=== PATIENT | male | born 1940 | race Caucasian/White ===

== ENCOUNTER → 2017-10-01 08:46 | Outpatient (CLI) | payer MEDICARE, OTHER, SELFPAY ==
--- NOTE | 2017-10-01 08:51 | US_ITS ---
US abdomen limited HISTORY:] Quadrant pain and bloating nausea. ORDERING PHYSICIAN: Rola Hauser PATIENT AGE: 77 years Comparison: None TECHNIQUE Sagittal, transverse and decubitus imaging of the regular quadrant including gallbladder was performed. FINDINGS GALLBLADDER - with borderline gallbladder wall thickening. Scant gallbladder debris is. No stones are evident. There is no gallbladder wall thickening. Common duct is normal in diameter. Common duct normal diameter at 3.5 mm Liver: Unremarkable No biliary ductal dilatation. No mass. Portal vein satisfactory Pancreas: .. Not well seen but region unremarkable .. Right kidney: Unremarkable appearing. No hydronephrosis. 9.4 seem in length. Cortex well fairly well-maintained IMPRESSION: 1. Gallbladder. No gallstones. Scant debris and sludge 2.. Liver & right kidney unremarkable. Pancreas not well seen
== END ==
PROVIDERS: PCP Internal Medicine; Visit Provider Nurse Practitioner Family
DX: R10.84 Generalized abdominal pain (principal); R14.0 Abdominal distension (gaseous); R11.0 Nausea
CPT/HCPCS: 76705

== ENCOUNTER → 2017-10-11 09:26 | Outpatient (CLI) | payer MEDICARE, OTHER, SELFPAY ==
[2017-10-11 10:09] LABS: Basophils % 0.5 % (0.1-2.0); Eosinophils # 0.2 K/mm3 (0.0-0.4); Eosinophils % 3.8 % (0.1-12.0); Hematocrit 37.6 % (42.0-52.0); Hemoglobin 11.9 g/dL (14.1-18.0); Lymphocytes # 1.3 K/mm3 (0.7-4.5); Lymphocytes % 22.9 K/mm3 (10-50); Mean Corpuscular HGB Conc 31.7 g/dL (31.8-35.4); Mean Corpuscular Volume 97.5 fl (80-94); Mean Platelet Volume 6.8 fl (7.4-10.4); Monocytes # 0.4 K/mm3 (0.1-1.0); Monocytes % 6.9 % (1.7-9.3); Neutrophils # 3.9 K/mm3 (1.8-7.8); Platelet Count 243 K/mm3 (142-424); Red Blood Count 3.86 M/mm3 (4.60-6.20); Red Cell Distribution Width 14.3 % (11.5-17.5); White Blood Count 5.9 K/mm3 (4.8-10.8)
[2017-10-11 10:32] LABS: Alanine Aminotransferase 16 U/L (12-78); Albumin Level 3.2 gm/dL (3.4-5.0); Albumin/Globulin Ratio 0.9 (1.1-1.8); Alkaline Phosphatase 125 U/L (46-116); Anion Gap 12.9 mEq/L (5-15); Aspartate Amino Transferase 13 U/L (15-37); Bilirubin,Total 0.5 mg/dL (0.2-1.0); Blood Urea Nitrogen 26 mg/dL (7-18); Calcium 9.2 mg/dL (8.5-10.1); Carbon Dioxide 31 mmol/L (21.0-32.0); Chloride 100 mmol/L (98-107); Creatinine,Serum 1.53 mg/dL (0.70-1.30); Estimated Glomerular Filt Rate 44 ml/min (>60); GFR (African American) 53 ML/MIN (>60); Globulin 3.6 gm/dl (1.3-3.2); Glucose 97 mg/dL (74-106); Sodium 137 mmol/L (136-145); Total Protein,Serum 6.8 gm/dL (6.4-8.2)
[2017-10-11 10:39] LABS: Potassium 6.9 mmoL/L (3.5-5.1)
[2017-10-15 19:15] LABS: Antinuclear Antibodies, IFA Negative (.)
== END ==
PROVIDERS: Visit Provider Allergy & Immunology
DX: E87.5 Hyperkalemia (principal)
CPT/HCPCS: 36415; 80053; 85025; 86038

== ENCOUNTER → 2017-10-12 11:02 | Outpatient (CLI) | payer MEDICARE, OTHER, SELFPAY ==
[2017-10-12 13:33] LABS: Anion Gap 7.7 mEq/L (5-15); Blood Urea Nitrogen 22 mg/dL (7-18); Carbon Dioxide 34 mmol/L (21.0-32.0); Chloride 104 mmol/L (98-107); Creatinine,Serum 1.44 mg/dL (0.70-1.30); Estimated Glomerular Filt Rate 47 ml/min (>60); GFR (African American) 57 ML/MIN (>60); Glucose 94 mg/dL (74-106); Potassium 5.7 mmoL/L (3.5-5.1); Sodium 140 mmol/L (136-145)
== END ==
PROVIDERS: PCP Nurse Practitioner Family; Visit Provider Nurse Practitioner Family
DX: E87.5 Hyperkalemia (principal)
CPT/HCPCS: 36415; 80048

== ENCOUNTER → 2017-11-10 13:56 | Outpatient (CLI) | payer MEDICARE, OTHER, SELFPAY | PROVIDERS: PCP Nurse Practitioner Family; Visit Provider Internal Medicine | DX: R06.00 Dyspnea, unspecified (principal) ==

== ENCOUNTER → 2018-02-11 08:47 | Outpatient (CLI) | payer MEDICARE, OTHER, SELFPAY ==
--- NOTE | 2018-02-11 08:59 | CT_ITS ---
CT angio abdomen CLINICAL INDICATION: Follow-up abdominal aortic aneurysm ITS.REASON: AAA ORDERING PHYSICIAN: Tj Day MD PATIENT AGE: 77 years COMPARISON: None TECHNIQUE: Axial images obtained with sagittal and coronal reformats. All CT scans at the facility use one or more dose reduction, viz: automated exposure control, ma/kV adjustment per patient size (including targeted exams where dose is matched to indication, i.e. head), or iterative reconstruction technique. PROCEDURE: Oral Contrast: None IV Contrast: 100 mL of Isovue-370. FINDINGS: There is mild dilatation of the distal descending thoracic aorta and 3.4 cm not significant change. There has been an aortoiliac stent graft placed. The superior aspect of the graft is just superior to the origin of the renal arteries. There is been no significant change in the appearance of the aneurysm with the aortoiliac stent present. The [place] aneurysm sac measures approximately 8 cm transverse not significant changed. The endoluminal portion of the aneurysm measures 3.8 cm with a mild amount of mural thrombus and is not significant changed. No evidence of endograft leak. There is some calcification of the mural thrombus which is developed in the interval. No evidence of acute retroperitoneal hemorrhage. The iliac portion of the graft is widely patent. Nonvascular findings: No intestinal obstruction or free air. There is diffuse diverticulosis of the descending and sigmoid colon. No evidence of diverticulitis. There is mild cortical calcaneal the kidneys on both sides with mild stranding of the perinephric renal fat. There are atheromatous changes of the celiac and SMA but no occlusive changes apparent. IMPRESSION: 1. Overall stable appearance of the aortoiliac stent graft as described above with dilatation of the [place] aneurysm sac unchanged. No evidence of endograft leak. 2. Diverticulosis of the sigmoid colon
--- NOTE | 2018-02-11 08:59 | CA_ITS ---
PROCEDURE: 2-D M-mode and color Doppler study INDICATIONS FOR THE TEST: Chest pain COPD+ Heart Murmur Tobacco Smoking+ Palpitations Fatigue Syncope Edema Hypertension+Diabetes Mellitus Rheumatic Fever SOB HARRY+Obesity Hyperlipidemia+ Family History HD Additional History CAD, AAA, PAD PATIENT INFORMATION HEIGHT: 72 WEIGHT: 165 GENDER: Male B/P: 126/69 2-D/M-MODE INTERPRETATION: 2-D MEASUREMENTS OBSERVED VALUES IN CMS Right Ventricular Dimension (RVDd) 2.0 Interventricular Septum (Thickness)(IVsd) 0.9 Left Ventricular Internal Dimensions(LVIDd) 4.7 Left Ventricular Posterior Wall (Thickness)(LVPWd) 0.9 Aortic Root 2.6 Aortic Cusp Separation 2.0 Left Atrial Dimensions (LAD) 3.0 2D 1. Left atrium is mildly enlarged, left ventricle is normal size, there is mild concentric left ventricular hypertrophy, visually estimated ejection fraction of 55% with no regional wall motion abnormality. 2. The right atrium and right ventricle are qualitatively mildly enlarged with normal contractility. 3. The aortic valve is minimally thickened and fibrosed. 4. The mitral and tricuspid valvular grossly normal. 5. Pulmonic valve is poorly visualized 6. No significant pericardial effusion noted. DOPPLER INTERROGATION: Doppler interrogation of the aortic, mitral and tricuspid valvular presence of mild mitral and tricuspid regurgitation, calculated right ventricular systolic pressure of 45 mmHg consistent with moderate pulmonary hypertension, grade 1 diastolic dysfunction seen without tissue Doppler evidence of raised left atrial pressure. CONCLUSION: 1. Mild biatrial enlargement, normal left ventricular size, mild concentric left ventricular hypertrophy, visually estimated ejection fraction 55% with no regional wall motion abnormality, diastolic dysfunction seen without tissue Doppler evidence of raised left atrial pressure. 2. Mildly enlarged right ventricle with normal contractility. 3. Mild mitral and tricuspid regurgitation, calculated right ventricular systolic pressure is 45 mmHg consistent with moderate pulmonary hypertension. 4. No significant pericardial effusion noted.
[2018-02-11 09:10] LABS: Blood Urea Nitrogen 23 mg/dL (7-18); Creatinine,Serum 1.61 mg/dL (0.70-1.30); Estimated Glomerular Filt Rate 42 ml/min (>60); GFR (African American) 50 ML/MIN (>60)
--- NOTE | 2018-02-11 10:00 | HMH.ITSHM ---
Current Home Medications as stated by this patient Timothy Rivera or patient relations representative. []METOPROLOL,ATORVASTATIN,AMLODIPINE,FUROSEMIDE,ASPRIIN,PROAIR, ALBUTEROL
== END ==
PROVIDERS: Visit Provider Internal Medicine
DX: I27.20 Pulmonary hypertension, unspecified (principal); R06.09 Other forms of dyspnea; I71.4 Abdominal aortic aneurysm, without rupture
CPT/HCPCS: 36415; 74175; 82565; 84520; 93306; Q9967

== ENCOUNTER → 2018-11-18 15:11 | Outpatient (CLI) | payer MEDICARE, OTHER, SELFPAY ==
[2018-11-18 17:17] LABS: Blood Urea Nitrogen 26 mg/dL (7-18); Creatinine,Serum 1.91 mg/dL (0.70-1.30); Estimated Glomerular Filt Rate 34 ml/min (>60); GFR (African American) 41 ML/MIN (>60)
== END ==
PROVIDERS: Visit Provider Internal Medicine
DX: R06.00 Dyspnea, unspecified (principal)
CPT/HCPCS: 36415; 82565; 84520

== ENCOUNTER → 2018-11-19 10:33 | Outpatient (CLI) | payer MEDICARE, OTHER, SELFPAY | PROVIDERS: PCP Nurse Practitioner Family; Visit Provider Urology | DX: I71.4 Abdominal aortic aneurysm, without rupture (principal) ==

== ENCOUNTER → 2018-11-25 15:28 | Outpatient (CLI) | payer MEDICARE, OTHER, SELFPAY ==
[2018-11-25 17:03] LABS: Blood Urea Nitrogen 18 mg/dL (7-18); Creatinine,Serum 1.49 mg/dL (0.70-1.30); Estimated Glomerular Filt Rate 45 ml/min (>60); GFR (African American) 55 ML/MIN (>60)
== END ==
PROVIDERS: Visit Provider Internal Medicine
DX: R06.00 Dyspnea, unspecified (principal)
CPT/HCPCS: 36415; 82565; 84520

== ENCOUNTER → 2018-11-26 10:27 | Outpatient (CLI) | payer MEDICARE, OTHER, SELFPAY ==
--- NOTE | 2018-11-26 10:32 | CT_ITS ---
Procedure: CT ANGIO ABDOMEN CLINICAL HISTORY: AAA Follow-up abdominal aortic aneurysm COMPARISON: AGABD CT angio abdomen from 02/11/2018 TECHNIQUE: IV Contrast: 100ml Optiray 350 Axial images obtained with sagittal and coronal reformats. All CT scans at the facility use one or more dose reduction, viz: automated exposure control, ma/kV adjustment per patient size (including targeted exams where dose is matched to indication, i.e. head), or iterative reconstruction technique. FINDINGS: There has been prior placement of an aortoiliac stent graft. No evidence of endograft leak. There remains dilatation the [place] aneurysm sac measuring up to 7 cm in AP dimension and 7.7 cm transverse not significantly changed. No evidence of thrombosis of the aorta or iliac vessels. No retroperitoneal hemorrhage apparent. The liver, spleen, adrenal glands, pancreas, and kidneys have an unremarkable appearance. There is diverticulosis of the sigmoid colon. IMPRESSION: Overall no change status post aortoiliac stent graft placement for abdominal aortic aneurysm.. No change in the dilatation of the thrombosed aneurysm sac with no evidence of endograft leak Dictated by: Dat Gaviria MD 11/27/2018 06:41 Electronically signed by Dat Gaviria MD in [place] 11/28/2018 07:15
== END ==
PROVIDERS: PCP Nurse Practitioner Family; Visit Provider Urology
DX: E78.5 Hyperlipidemia, unspecified (principal); F17.200 Nicotine dependence, unspecified, uncomplicated; I11.9 Hypertensive heart disease without heart failure; I25.10 Atherosclerotic heart disease of native coronary artery without angina pectoris; I71.4 Abdominal aortic aneurysm, without rupture; I73.9 Peripheral vascular disease, unspecified; Z01.810 Encounter for preprocedural cardiovascular examination
CPT/HCPCS: 74175; Q9967

== ENCOUNTER 2019-02-24 11:35 | Inpatient (IN) ==
[2019-02-24 12:19] LABS: Basophils % 0.2 % (0.1-2.0); Eosinophils # 0.1 K/mm3 (0.0-0.4); Eosinophils % 0.9 % (0.1-12.0); Hematocrit 36.4 % (42.0-52.0); Hemoglobin 11.9 g/dL (14.1-18.0); Lymphocytes # 0.7 K/mm3 (0.7-4.5); Lymphocytes % 4.3 % (10-50); Mean Corpuscular HGB Conc 32.8 g/dL (31.8-35.4); Mean Corpuscular Volume 95.4 fl (80-94); Mean Platelet Volume 8.7 fl (7.4-10.4); Monocytes # 0.8 K/mm3 (0.1-1.0); Monocytes % 5.3 % (1.7-9.3); Neutrophils # 13.5 K/mm3 (1.8-7.8); Neutrophils % 89.3 % (37.0-80.0); Platelet Count 248 K/mm3 (142-424); Red Blood Count 3.81 M/mm3 (4.60-6.20); Red Cell Distribution Width 14.3 % (11.5-17.5); White Blood Count 15.1 K/mm3 (4.8-10.8)
[2019-02-24 12:25] LABS: Amylase 62 U/L (25-115)
[2019-02-24 12:38] LABS: Lymphocytes % 5 % (10-50); Monocytes % 3 % (2-9); Neutrophils % 92 % (42-76); Total Cells Counted 100
[2019-02-24 12:39] LABS: RBC Morphology Normal
[2019-02-24 12:51] LABS: Alanine Aminotransferase 12 U/L (12-78); Albumin Level 2.7 gm/dL (3.4-5.0); Albumin/Globulin Ratio 0.6 (1.1-1.8); Alkaline Phosphatase 90 U/L (46-116); Anion Gap 12.9 mEq/L (5-15); Aspartate Amino Transferase 8 U/L (15-37); Bilirubin,Total 1.1 mg/dL (0.2-1.0); Blood Urea Nitrogen 25 mg/dL (7-18); Calcium 8.8 mg/dL (8.5-10.1); Carbon Dioxide 30 mmol/L (21.0-32.0); Chloride 99 mmol/L (98-107); Globulin 4.6 gm/dl (1.3-3.2); Glucose 128 mg/dL (74-106); Sodium 137 mmol/L (136-145); Total Protein,Serum 7.3 gm/dL (6.4-8.2)
--- NOTE | 2019-02-24 15:18 | Emergency Department Note ---
ED Disposition Clinical Impression: Acute exacerbation of chronic obstructive airways disease, SIRS (systemic inflammatory response syndrome) Community acquired pneumonia Qualifiers: Laterality: right Lung location: upper lobe of lung Qualified Code(s): J18.9 - Pneumonia, unspecified organism Disposition: Admitted As Inpatient Condition on Discharge: Fair Referrals: Provider,Referral, [Primary Care Provider] - - Critical Care Critical Care Time: No Attestation: On 02/24/19, the high probability of a clinically significant, sudden or life threatening deterioration of the following system(s) required my full and direct attention, intervention and personal management. The time I documented below is in addition to time spent performing reported procedures but includes the following listed in this critical care notation. Medical Decision Making - Brian Inquiry Pt receiving controlled substance: No Vital Signs: 02/24/19 11:36 02/24/19 12:06 02/24/19 12:24 Temperature 100.1 F H 101.5 F H Temperature Source Oral Oral Pulse Rate Pulse Rate [Right Radial] 93 H 89 88 Respiratory Rate 24 24 16 Blood Pressure [Right Arm] 134/78 126/68 130/73 Blood Pressure Mean [Right Arm] 96 87 92 Blood Pressure Source [Right Arm] Automatic Cuff Automatic Cuff Automatic Cuff Blood Pressure Position [Right Arm] Sitting Sitting Sitting 02 Sat by Pulse Oximetry 95 97 97 Oxygen Delivery Method Nasal Cannula Nasal Cannula Room Air Oxygen Flow Rate (LPM) 3 3 02/24/19 15:37 Temperature Temperature Source Pulse Rate 95 H Pulse Rate [Right Radial] Respiratory Rate Blood Pressure [Right Arm] Blood Pressure Mean [Right Arm] Blood Pressure Source [Right Arm] Blood Pressure Position [Right Arm] 02 Sat by Pulse Oximetry Oxygen Delivery Method Oxygen Flow Rate (LPM) - Lab Data Lab results reviewed: Yes: I reviewed the patient's lab results. Lab Results 02/24/19 11:50: WBC 15.1 H, RBC 3.81 L, Hgb 11.9 L, Hct 36.4 L, MCV 95.4 H, MCH 31.3 H, MCHC 32.8, RDW 14.3, Plt Count 248, MPV 8.7, Neut % (Auto) 89.3 H, Lymph % (Auto) 4.3 L, [place] % (Auto) 5.3, Eos % (Auto) 0.9, Baso % (Auto) 0.2, Neut # (Auto) 13.5 H, Lymph # (Auto) 0.7, [place] # (Auto) 0.8, Eos # (Auto) 0.1, Baso # (Auto) 0.0, Total Counted 100, Neutrophils % (Manual) 92 H, Lymphocytes % (Manual) 5 L, Monocytes % (Manual) 3, Platelet Estimate Normal, RBC Morphology Normal 02/24/19 11:50: Amylase 62, Lipase 79 02/24/19 12:27: Sodium 137, Potassium 4.9, Chloride 99, Carbon Dioxide 30, Anion Gap 12.9, BUN 25 H, Creatinine 2.00 H, Estimated Creat Clear 28, Estimated GFR 32 L, Est GFR ( Amer) 39 L, Glucose 128 H, Calcium 8.8, Total Bilirubin 1.1 H, AST 8 L, ALT 12, Alkaline Phosphatase 90, Troponin I < 0.02, Total Protein 7.3, Albumin 2.7 L, Globulin 4.6 H, Albumin/Globulin Ratio 0.6 L 02/24/19 12:27: Lactate 1.0 02/24/19 15:18: Troponin I < 0.02 Result diagrams: 02/24/19 11:50 02/24/19 12:27 Orders (Tests/Meds): ED MEDICATIONS Discontinued Medications Generic Name Dose Route Start Last Admin Trade Name Hermannq PRN Reason Stop Dose Admin Acetaminophen 1,000 mg 02/24/19 15:36 02/24/19 15:56 Tylenol 500mg Tablet PO 02/24/19 15:37 1,000 mg ONCE ONE Administration Albuterol/Ipratropium 3 ml 02/24/19 15:35 02/24/19 15:36 Duoneb 3ml Neb IH 02/24/19 15:36 3 ml ONCE ONE Administration Sodium Chloride 1,000 mls @ 999 mls/hr 02/24/19 15:15 02/24/19 15:57 Sod Chlor 0.9% 1000ml Bag IV 02/24/19 16:15 999 mls/hr .Q1H1M MELISSA Administration Ceftriaxone Sodium 1 gm/ 50 mls @ 100 mls/hr 02/24/19 15:03 02/24/19 15:56 Sodium Chloride IV 02/24/19 15:32 100 mls/hr ONCE STA Administration Protocol Azithromycin 500 mg/ Sodium 250 mls @ 250 mls/hr 02/24/19 15:19 02/24/19 16:13 Chloride IV 02/24/19 15:20 250 mls/hr Q24H STA Administration Protocol Methylprednisolone Sodium Succinate 125 mg 02/24/19 15:35 02/24/19 15:56 Solu-Medrol 125mg/2ml Vial IV 02/24/19 15:36 125 mg ONCE ONE Administration ORDERS Category Date Time Status CT angio chest Stat Cat Scan 02/24/19 17:09 Ordered Troponin I Q3H Lab 02/24/19 18:00 Ordered Blood Culture Stat Micro 02/24/19 11:50 Received - Radiology Data #1 Image(s): Chest FINDINGS: The cardiomediastinal silhouette and pulmonary vascularity are within normal limits. Consolidation is present involving the right upper lobe laterally abutting the fissure consistent pneumonia. There is mild hyperinflation suggesting small airway disease. In addition, there is a nodular opacity overlying left lower lobe which measures 10 mm. No acute bony abnormalities. IMPRESSION: 1. Right upper lobe pneumonia. 2. Left lower lobe nodule which may be better evaluated with CT. Dictated by: Dat Gaviria MD 02/24/2019 13:01 Electronically signed by Dat Gaviria MD in [place] 02/24/2019 13:01 - ECG Data Tracing #1 EKG done at 1131 hrs. shows normal sinus rhythm with a heart rate of 85 bpm, nonspecific ST-T changes. Right bundle branch block pattern. - Physician Consults Physician Consulted: Dr. Murillo Time: 17:15 Reason -: Admission Comment/Response: Discussed with Dr. Murillo regarding the patient and planned to get the patient admitted to the floor. - Reevaluation(s) Time: 15:30 Reevaluation #1: Patient has been stable throughout the course of stay in the ER. Discussed the lab findings and the x-ray finding with the patient. Plan to do a CT scan of the chest to further evaluate the cause of the right-sided consolidation. Time: 16:50 Reevaluation #3: Patient has been stable throughout the course of stay in the ER. Plan to admit the patient to the floor. - Tissue Perfus/Sepsis Re-Eval Sepsis Re-Evaluation Performed: Yes Date Performed: 02/24/19 Time Performed: 15:00 Resp/SOB HPI - General Chief Complaint: Shortness of Breath/Dyspnea Stated Complaint: SOA Time Seen by Provider: 02/24/19 12:00 Mode of Arrival: Wheelchair Limitations: No Limitations Description of Symptoms (Recalled from ER Triage Doc. by RN): PT C/O SOA AND PAIN IN THE RT CHEST WITH INSPIRATION X4 DAYS - History of Present Illness 78-year-old male was brought to the emergency department for having shortness of breath and not getting better for the last 4 days. According to the family members the patient was getting weaker and weaker. He was getting dizzy because of the shortness of breath. The family did not check the patient temperature but stated that he was feeling warm. He was complaining of having pain on the right side of the chest. The pain was radiating from the undersurface of the right chest wall to the right side of the chest. The pain is sharp in nature. No nausea or vomiting. No change in mental status. MD Complaint: shortness of breath Onset (ago): day(s) (4-5 days) Severity: moderate - Related Data Home Medications Medication Instructions Recorded Confirmed albuterol sulfate 1.25 mg/3 mL 1.25 mg INHALATION Q6H 05/15/17 12/14/18 solution for nebulization albuterol sulfate HFA 90 90 mcg INHALATION Q6H 05/15/17 12/14/18 mcg/actuation aerosol inhaler aspirin 81 mg tablet,delayed 81 mg PO DAILY tab 05/15/17 12/14/18 release omeprazole 20 mg capsule,delayed 20 mg PO DAILY 11/11/18 12/14/18 release Previous Rx's Medication Instructions Recorded atorvastatin 40 mg tablet 40 mg PO DAILY #30 tab 06/08/18 furosemide 20 mg tablet 20 mg PO DAILY #30 tab 12/01/18 amlodipine 10 mg tablet 10 mg PO DAILY #90 tab 01/18/19 metoprolol tartrate 100 mg tablet 100 mg PO BID #60 tab 02/15/19 Allergies Allergy/AdvReac Type Severity Reaction Status Date / Time lisinopril Allergy Intermediate angioedema Verified 12/14/18 10:33 [facility] History - Hepatitis A Screen Drug use history?: No High risk sexual behaviors?: No History of sexually transmitted infection?: No Currently employed?: No Childcare worker?: No Do you have indoor plumbing?: Yes Do you have electricity?: Yes Attestation statement:: This patient has been screened for Hepatitis A risk factors. Medical History: Reports:: Aneurysm, Chronic Obstructive Pulmonary Disease (COPD), Coronary Artery Disease, Hyperlipidemia, Hypertension, Lung Disease Denies:: Diabetes Mellitus Type 1, Diabetes Mellitus Type 2, Internal Pacemaker, Seizures Other Medical History: Denies: Blood Transfusion Reaction Other Surgeries: Yes: Cardiac Catheterization, Colonoscopy, Colon Resection, EGD, Other. No: Pacemaker Comment: small bowel obstruction - Social History Smoking Status: Current every day smoker Tobacco Type: cigarettes # Packs/Day (cigarettes): 1 Alcohol Intake: never Alcohol Intake Frequency:: 0-2 drinks per day Substance Use Type: denies use Occupational Status: retired, disabled Family Hx:: Coronary Artery Disease ROS Obtained: Yes All systems reviewed & no additional complaints Physical Exam - General General appearance: alert, in no apparent distress - Head Head exam: atraumatic, normocephalic, normal inspection - Eye Eye exam: Present: normal appearance, PERRL, EOMI - ENT ENT exam: Present: normal exam, normal oropharynx, mucous membranes moist, normal external ear exam - Neck Neck exam: Present: normal inspection, full ROM, trachea midline - Chest Chest inspection: Present: normal inspection, symmetric chest wall rise, tenderness, other (Patient complains of tenderness on palpation of the right 6-7 intercostal and the rib margin area at the anterolateral margin.) - Respiratory Respiratory exam: Present: other (Mild coarse breath sounds more on the right than the left.). Absent: respiratory distress - Cardiovascular Cardiovascular exam: Present: regular rate, normal rhythm. Absent: JVD - Abdominal Exam Abdominal exam: Present: soft, tenderness (Patient complains of tenderness on palpation of the right upper quadrant of the abdomen.), normal bowel sounds, Rodrigues's sign (Her feet sign is questionable positive.). Absent: distention, g uarding Abdominal tenderness: Present: RUQ - Extremities Exam Extremities exam: Present: normal inspection, full ROM, normal capillary refill. Absent: calf tenderness - Back Exam Back exam: Present: normal inspection, tenderness (Mild tenderness on the posterior aspect of the right chest wall area.) - Neurological Exam Neurological exam: Present: alert, oriented X3, CN II-XII intact - Psychiatric Psychiatric exam: Present: normal affect, normal mood - Skin Skin exam: Present: warm, dry, intact, normal color
[2019-02-25 06:11] LABS: Eosinophils # 0.1 K/mm3 (0.0-0.4); Eosinophils % 0.6 % (0.1-12.0); Hematocrit 36.6 % (42.0-52.0); Hemoglobin 11.9 g/dL (14.1-18.0); Lymphocytes # 0.7 K/mm3 (0.7-4.5); Lymphocytes % 4.3 % (10-50); Mean Corpuscular HGB Conc 32.4 g/dL (31.8-35.4); Mean Corpuscular Volume 95.4 fl (80-94); Mean Platelet Volume 8.4 fl (7.4-10.4); Monocytes # 0.3 K/mm3 (0.1-1.0); Monocytes % 1.7 % (1.7-9.3); Neutrophils # 15.6 K/mm3 (1.8-7.8); Neutrophils % 93.4 % (37.0-80.0); Platelet Count 226 K/mm3 (142-424); Red Blood Count 3.83 M/mm3 (4.60-6.20); Red Cell Distribution Width 14.2 % (11.5-17.5); White Blood Count 16.7 K/mm3 (4.8-10.8)
[2019-02-25 06:20] LABS: Anion Gap 11.8 mEq/L (5-15); Calcium 8.8 mg/dL (8.5-10.1)
[2019-02-25 06:59] LABS: Lymphocytes % 5 % (10-50); Monocytes % 2 % (2-9); Neutrophils % 91 % (42-76); RBC Morphology Normal; Total Cells Counted 100
--- NOTE | 2019-02-25 07:32 | History & Physical Report ---
*Admission Date: 02/24/19 *Chief complaint: Cough and shortness of breath *History of present illness: 78-year-old male with likely COPD presents to the emergency department with approximately 3 days of cough with increasing shortness of breath. Patient does not know if he has had fevers at home. Cough is primarily nonproductive but has associated weakness and nausea. Patient has been smoking since the age of 10 and currently smokes a pack of cigarettes per day. Work-up in the emergency department showed a right upper lobe pneumonia as well as a nodule in the left upper lobe concerning for neoplasm. Patient was admitted for IV antibiotics. Patient reports that shortly after admission he felt like he was already improving but overnight and around 3 AM he awoke and felt rather weak and restless. He has a sensation of chest congestion and pain in the posterior right mid back [facility] History I have reviewed the patient's past medical history: Yes Medical History: Reports:: Aneurysm, Chronic Obstructive Pulmonary Disease (COPD), Coronary Artery Disease, Hyperlipidemia, Hypertension, Lung Disease Denies:: Diabetes Mellitus Type 1, Diabetes Mellitus Type 2, Internal Pacemaker, Seizures *Have you ever received a pneumonia vaccine?: No (interested in vaccine) *Have you received a flu vaccine this season?: Yes Other Medical History: Denies: Blood Transfusion Reaction Other Surgeries: Yes: Cardiac Catheterization, Colonoscopy, Colon Resection, EGD, Hernia Repair, Other. No: Pacemaker - *Social History Educational Level: Completed GED/General Educational Development Smoking Status: Current every day smoker Tobacco Type: cigarettes # Packs/Day (cigarettes): 2 Alcohol Intake: current Alcohol Intake Frequency:: a few times a week Substance Use Type: denies use *Occupational Status:: retired, disabled Household Members: spouse *Travel in the last 8 weeks: None Family Hx:: No significant family history, Coronary Artery Disease Review of Systems - Constitutional Reports anorexia, Reports chills - *Cardiovascular Denies chest pain - *Respiratory Reports chest congestion, Reports cough, Reports shortness of breath with activity - *Gastrointestinal Denies abdominal pain - *Musculoskeletal Denies abnormal walking, Denies joint pain Meds Home Medications Medication Instructions Recorded Confirmed Type albuterol sulfate 1.25 mg/3 mL 1.25 mg INHALATION Q8 05/15/17 02/24/19 History solution for nebulization albuterol sulfate HFA 90 90 mcg INHALATION Q6H PRN 05/15/17 02/24/19 History mcg/actuation aerosol inhaler aspirin 81 mg tablet,delayed 81 mg PO DAILY tab 05/15/17 02/24/19 History release atorvastatin 40 mg tablet 40 mg PO DAILY #30 tab 06/08/18 02/24/19 Rx omeprazole 20 mg capsule,delayed 20 mg PO DAILY 11/11/18 02/24/19 History release furosemide 20 mg tablet 20 mg PO DAILY #30 tab 12/01/18 02/24/19 Rx amlodipine 10 mg tablet 10 mg PO DAILY #90 tab 01/18/19 02/24/19 Rx metoprolol tartrate 100 mg tablet 100 mg PO BID #60 tab 02/15/19 02/24/19 Rx Cyclobenzaprine HCl 10 mg PO NEEDED PRN 02/24/19 02/24/19 History [Cyclobenzaprine 10mg Tab] Allergies Allergy/AdvReac Type Severity Reaction Status Date / Time lisinopril Allergy Intermediate angioedema Verified 12/14/18 10:33 Exam Vital signs and Labs for Last 24 Hours: Temp Pulse Resp BP Pulse Ox 97.8 F 78 19 126/80 91 L 02/25/19 04:00 02/25/19 04:00 02/25/19 04:00 02/25/19 04:00 02/25/19 04:00 Laboratory Results - last 24 hr 02/24/19 11:50: WBC 15.1 H, RBC 3.81 L, Hgb 11.9 L, Hct 36.4 L, MCV 95.4 H, MCH 31.3 H, MCHC 32.8, RDW 14.3, Plt Count 248, MPV 8.7, Neut % (Auto) 89.3 H, Lymph % (Auto) 4.3 L, [place] % (Auto) 5.3, Eos % (Auto) 0.9, Baso % (Auto) 0.2, Neut # (Auto) 13.5 H, Lymph # (Auto) 0.7, [place] # (Auto) 0.8, Eos # (Auto) 0.1, Baso # (Auto) 0.0, Total Counted 100, Neutrophils % (Manual) 92 H, Lymphocytes % (Manual) 5 L, Monocytes % (Manual) 3, Platelet Estimate Normal, RBC Morphology Normal 02/24/19 11:50: Amylase 62, Lipase 79 02/24/19 12:27: Sodium 137, Potassium 4.9, Chloride 99, Carbon Dioxide 30, Anion Gap 12.9, BUN 25 H, Creatinine 2.00 H, Estimated Creat Clear 28, Estimated GFR 32 L, Est GFR ( Amer) 39 L, Glucose 128 H, Calcium 8.8, Total Bilirubin 1.1 H, AST 8 L, ALT 12, Alkaline Phosphatase 90, Troponin I < 0.02, Total Protein 7.3, Albumin 2.7 L, Globulin 4.6 H, Albumin/Globulin Ratio 0.6 L 02/24/19 12:27: Lactate 1.0 02/24/19 15:18: Troponin I < 0.02 02/24/19 18:00: Troponin I < 0.02 02/24/19 20:36: Troponin I < 0.02 02/25/19 00:57: POC Glucose 227 H 02/25/19 05:50: POC Glucose 165 H 02/25/19 05:57: WBC 16.7 H, RBC 3.83 L, Hgb 11.9 L, Hct 36.6 L, MCV 95.4 H, MCH 31.0, MCHC 32.4, RDW 14.2, Plt Count 226, MPV 8.4, Neut % (Auto) 93.4 H, Lymph % (Auto) 4.3 L, [place] % (Auto) 1.7, Eos % (Auto) 0.6, Baso % (Auto) 0.0 L, Neut # (Auto) 15.6 H, Lymph # (Auto) 0.7, [place] # (Auto) 0.3, Eos # (Auto) 0.1, Baso # (Auto) 0.0, Total Counted 100, Neutrophils % (Manual) 91 H, Band Neutrophils % 2.0, Lymphocytes % (Manual) 5 L, Monocytes % (Manual) 2, Platelet Estimate Normal, RBC Morphology Normal 02/25/19 05:57: Sodium 139, Potassium 4.8, Chloride 102, Carbon Dioxide 30, Anion Gap 11.8, BUN 28 H, Creatinine 1.71 H, Estimated Creat Clear 34, Estimated GFR 39 L, Est GFR ( Amer) 47 L D, Glucose 158 H D, Calcium 8.8 I & O for Last 24 hours: Intake & Output 12/09/02/23/19 02/24/19 02/25/19 11:59 11:59 11:59 11:59 Weight 148 lb 152 lb 2 oz - Constitutional no acute distress - *Routine HEENT Exam Head: Present: normocephalic Eye: Present: PERRL ENT: Present: mucous membranes moist - *Routine Neck Exam Present: supple, full ROM. Absent: JVD - *Routine Respiratory Exam Comments: Fair aeration with rales in the right posterior mid chest - *Routine Cardiovascular Exam Present: RRR, Normal S1, Normal S2 - *Routine Abdominal Exam Present: soft - *Routine Extremities Exam Absent: cyanosis, clubbing, edema - *Routine Neurological Exam Present: alert, oriented X3 Assessment and Plan (1) Community acquired pneumonia Current visit: Yes Status: Acute Qualifiers: Laterality: right Lung location: upper lobe of lung Qualified Code(s): J18.9 - Pneumonia, unspecified organism Category: Medical Code(s): J18.9 - Pneumonia, unspecified organism (2) Acute exacerbation of chronic obstructive airways disease Current visit: Yes Status: Acute Category: Medical Code(s): J44.1 - Chronic obstructive pulmonary disease with (acute) exacerbation - Assessment and plan all Dx Assessment and Plan for all problems:: 1. Start D5 half-normal saline plus potassium for a total of 2 L as patient is likely a little dehydrated from his poor appetite during the week 2. Continue Rocephin and azithromycin. Add albuterol nebs and Mucinex. Encourage patient to ambulate.
--- NOTE | 2019-02-25 07:42 | Pharmacy Consult Notes ---
[facility] Pharmacy VTE Monitoring - Patient Demographics Admission date: 02/24/19 Report Date: 02/25/19 Time: 07:42 Allergies/Adverse Reactions: Patient Allergies lisinopril Allergy (Intermediate, Verified 12/14/18 10:33) angioedema Height: 1.83 m Weight: 69.003 kg Patient Problems: Current Active Problems Community acquired pneumonia (Acute) Acute exacerbation of chronic obstructive airways disease (Acute) SIRS (systemic inflammatory response syndrome) (Acute) - VTE Risk Labs: VTE Related Lab Results Hgb 11.9 g/dL (14.1-18.0) L 02/25/19 05:57 Hct 36.6 % (42.0-52.0) L 02/25/19 05:57 Plt Count 226 K/mm3 (142-424) 02/25/19 05:57 BUN 28 mg/dL (7-18) H 02/25/19 05:57 Creatinine 1.71 mg/dL (0.70-1.30) H 02/25/19 05:57 Estimated Creat Clear 34 mL/min (50-200) 02/25/19 05:57 VTE Score: 3 VTE Risk Level: Low Risk - Prophylaxis VTE Prophylaxis Ordered?: Yes Types of VTE Prophylaxis: TEDS Knee High Location of Applied Device: Bilateral Lower Extremeties - VTE Diagnosis Confirmed Treatment or plan recommended: Continue Current Treatment
--- NOTE | 2019-02-25 10:26 | Electrocardiograph Report ---
APPROVED REPORT Exam: Resting ECG HR:85 bpm ECG Measurements Heart Rate 85 AXES [place] 118 P 45 QRSd 120 QRS 87 QT 346 T61 QTc 411 <Conclusion> Normal sinus rhythm Right bundle branch block Abnormal ECG Electronically signed by : Karthik Arce, 02/25/2019 10:26:22
--- OUTSIDE RECORDS SUMMARY | 2019-02-25 14:16 | External Medical Summary | Continuity of Care Document ---
:1940 Author Organization [facility] Address [address] [place] [address] Phone Care Team Providers Name Role Phone Esther Attending Provider Murtaza Primary Care Provider Ariel Primary Care Provider Ariel Attending Provider Regis Murillo Attending Provider Allergies, Adverse Reactions, Alerts Allergen Type Severity Reaction Last Verified Status Updated lisinopril Allergy Moderate angioedema Yes Active Medications Medication Status Dose Units Route Sig Qty Days Start End Instruct ions Date Date Omeprazole Active 20 MG Oral Daily November 11, 2018 2:08pm Aspirin Active 81 MG Oral Daily May 15, 2017 1:11pm Albuterol Active 2 PUFFS INHALATIO Every 18 May Sulfate N hours 2017 as 1:12pm needed Atorvastatin Active 40 MG Oral Daily May 11:31am Furosemide Active 20 MG Oral Daily December 01, 2018 3:20pm Amlodipine Active 10 MG Oral Daily January Bes2018 1:53pm Cyclobenzaprine Active 10 MG Oral At February bedtime , nightly 2018 as 11:09pm needed Metoprolol Active 100 MG Oral Twice a February 10:30am Problems Active Problems Medical Problem Onset Date Status Acute exacerbation of chronic Active obstructive airways disease Tobacco dependence syndrome Active Encounter for pre-operative Active cardiovascular clearance Foreign body Active CAD (coronary artery disease) Active AAA (abdominal aortic aneurysm) Active RBBB Active Dyspnea Active HLD (hyperlipidemia) Active Community acquired pneumonia Active SIRS (systemic inflammatory response Act phuong syndrome) Renal insufficiency Active Tobacco use disorder Active PAD (peripheral artery disease) Active COPD (chronic obstructive pulmonary Acti ve disease) HHD (hypertensive heart disease) Active RBBB Active Hyperkalemia Active Procedures Procedure Date Performed Status XR chest portable February 24, 2019 completed US gallbladder February 24, 2019 completed ECG initial Besson February 24, [address] chest wo con February 24, 2019 completed Blood Culture February 24, 2019 active Relevant Diagnostic Tests and/or Laboratory Data Laboratory Results Test Date/Time Result Interpretation Reference Result Perfo rming Range Comment Site White Blood Count February 16.7 4.8-10.8 [facility], [address] [place] [address] 36 E 2018 K/mm3 Ge[place] [address] 5:57am Red Blood Count February 3.83 4.60-6.20 [facility], [address] [place] [address] 36 E 2018 M/mm3 [place] [address] 5:57am Hemoglobin February 11.9 14.1-18.[address] 36 E 2018 g/[place] [address] 5:57am Hematocrit February 36.6 % 42.0-52.[address] 36 E 2018 [place] [address] 5:57am Mean Corpuscular February 95.4 fl 80-[address] 36 E Volume 2018 [place] [address] 5:57am Mean Corpuscular Waldo 31.0 pg 27.0-31.[address] 36 E Hemoglobin 2018 [place] [address] 5:57am Mean Corpuscular Waldo 32.4 31.8-35.[address] 36 E Hemoglobin Concent 2018 g/[place] [address] 5:57am Red Cell Waldo 14.2 % 11.5-17.5 [facility], [address] [place] [address] 36 E Distribution Width 2018 [place] [address] 5:57am Platelet Count February 226 142-424 [facility], [address] [place] [address] 36 E 2018 K/mm3 [place] [address] 5:57am Mean Platelet Waldo 8.4 fl 7.4-10.4 [facility], [address] [place] [address] 36 E Volume 2018 [place] [address] 5:57am Neutrophils (%) Waldo 93.4 % 37.0-80.0 [facility], [address] [place] [address] 36 E (Auto) 2018 [place] [address] 5:57am Lymphocytes (%) Waldo 4.3 % 10-50 [facility], [address] [place] [address] 36 E (Auto) 2018 [place] [address] 5:57am Monocytes (%) Waldo 1.7 % 1.7-9.3 [facility], [address] [place] [address] 36 E (Auto) 2018 [place] [address] 5:57am Eosinophils (%) Waldo 0.6 % 0.1-12.0 [facility], [address] [place] [address] 36 E (Auto) 2018 [place] [address] 5:57am Basophils (%) Waldo 0.0 % 0.1-2.0 [facility], [address] [place] [address] 36 E (Auto) 2018 [place] [address] 5:57am Neutrophils # Waldo 15.6 1.8-7.8 [facility], [address] [place] [address] 36 E (Auto) 2018 K/mm3 [place] [address] 5:57am Lymphocytes # Waldo 0.7 0.7-4.5 [facility], [address] [place] [address] 36 E (Auto) 2018 K/mm3 [place] [address] 5:57am Monocytes # (Auto) Waldo 0.3 0.1-1.0 [facility], [address] [place] [address] 36 E 2018 K/mm3 [place] [address] 5:57am Eosinophils # Waldo 0.1 0.0-0.4 [facility], [address] [place] [address] 36 E (Auto) 2018 K/mm3 [place] [address] 5:57am Basophils # (Auto) Waldo 0.0 0-0.2 [facility], [address] [place] [address] 36 E 2018 K/mm3 Geeta [place] [address] 5:57am Differential Total February 100 [facility], [address] [place] [address] 36 E Cells Counted 2018 [place] [address] 5:57am Neutrophils % Waldo 91 % 42-76 [facility], [address] [place] [address] 36 E (Manual) 2018 [place] [address] 5:57am Band Neutrophils % Waldo 2.0 0-8 [facility], [address] [place] [address] 36 E 2018 Geeta [place] [address] 5:57am Lymphocytes % Waldo 5 % 10-50 [facility], [address] [place] [address] 36 E (Manual) 2018 [place] [address] 5:57am Monocytes % Waldo 2 % 2-9 [facility], [address] [place] [address] 36 E (Manual) 2018 [place] [address] 5:57am Platelet Estimate Waldo Normal [facility], [address] [place] [address] 36 E 2018 Ge[place] [address] 5:57am Red Blood Cell Waldo Normal [facility], [address] [place] [address] 36 E Morphology 2018 Arline [place] [address] 5:57am Troponin I February < 0.02 0.00-0.06 *ALERT* High [facility], [address] [place] [address] 36 E 2018 ng/ml levels of Ge[place] [address] 8:36pm Biotin can falsely depress Troponin results.Many dietary supplements promoted for hair,skin, and nail benefits contain biotin levels up to 650 times the recommended daily intake of biotin. In additon to dietary supplements, Biotin is occasionally prescribed for medical conditions. Sodium Level February 139 136-145 [facility], [address] [place] [address] 36 E 2018 mmol/L Ge[place] [address] 5:57am Potassium Level February 4.8 3.5-5.1 [facility], [address] [place] [address] 36 E 2018 mmoL/L [place] [address] 5:57am Chloride Level February 102 98-107 [facility], [address] [place] [address] 36 E 2018 mmol/L Ge[place] [address] 5:57am Carbon Dioxide February 30 21.0-32.0 [facility], [address] [place] [address] 36 E Level 2018 mmol/L Ge[place] [address] 5:57am Anion Gap February 11.8 5-15 [facility], [address] [place] [address] 36 E 2018 mEq/L Ge[place] [address] 5:57am Blood Urea February 28 7-18 [facility], [address] [place] [address] 36 E Nitrogen 2018 mg/dL [place] [address] 5:57am Creatinine February 1.71 0.70-1.30 [facility], [address] [place] [address] 36 E 2018 mg/dL [place] [address] 5:57am Estimated February 34 0-300 [facility], [address] [place] [address] E Creatinine 2018 mL/min Arline [place] [address] Clearance 5:57am Estimated GFR February 47 >59 Delta: 39 on [facility], [address] [place] [address] 36 E () 2018 ML/MIN 02/24/19-1 227 Geeta [place] [address] 5:57am Estimat Glomerular February 39 >59 [facility], [address] [place] [address] 36 E Filtration Rate 2018 ml/min Kyung [place] [address] 5:57am Glucose Level February 158 74-106 Delta: 128 on [facility], [address] [place] [address] 36 E 2018 mg/dL 02/24/19-1227 Jose [place] 36583 5:57am Bedside Glucose February 165 70-110 Poin t-of-Ca 2018 re (RALS) 5:50am Lactate February 1.0 0.4-2.0 [facility], [address] [place] [address] 36 E 2018 mmol/L Ge[place] [address] 12:27pm Calcium Level February 8.8 8.5-10.1 [facility], [address] [place] [address] 36 E 2018 mg/dL Ge[place] [address] 5:57am Total Bilirubin February 1.1 0.2-1.0 [facility], [address] [place] [address] 36 E 2018 mg/dL Ge[place] [address] 12:27pm Aspartate Amino Waldo 8 U/L [facility], [address] [facility] 36 E Transf (AST/SGOT) 2018 [place] [address] 12:27pm Alanine Waldo 12 U/L 12-78 [facility], [address] [place] [address] 36 E Aminotransferase 2018 Cy tony [place] [address] (ALT/SGPT) 12:27pm Total Protein February 7.3 6.4-8.2 [facility], [address] [place] [address] 36 E 2018 gm/[place] [address] 12:27pm Albumin Waldo 2.7 3.4-5.0 [facility], [address] [place] [address] 36 E 2018 gm/[place] [address] 12:27pm Globulin Waldo 4.6 1.3-3.2 [facility], [address] [place] [address] 36 E 2018 gm/[place] [address] 12:27pm Albumin/Globulin February 0.6 1.1-1.8 [facility], [address] [place] [address] 36 E Ratio 2018 [place] [address] 12:27pm Alkaline Waldo 90 U/L 46-116 [facility], [address] [place] [address] 36 E Phosphatase 2018 [place] [address] 12:27pm Amylase Level February 62 U/L 25-115 [facility], [address] [place] [address] 36 E 2018 [place] [address] 11:50am Lipase February 79 u/L 73-393 [facility], [address] [place] [address] 36 E 2018 [place] [address] 11:50am Diagnostic Imaging Reports Report Dictated Date/Time Dictated By Status Radiology Report February 24, 2019 Dat Gaviria MD completed 12:15pm [address] [place] [address] XRay R eport Sig jm Patient: Timothy Rivera MR#: [id number] : 1940 Acct:[id number] Age/Sex: 78 / M ADM Date: 9 Loc: ER Attending Dr: Ordering Physician: Anabella Brown MD Date of Service: 02/24/19 Procedure(s): XR chest portable Accession Number(s): [id number] cc: Dat Gaviria MD; Provider,Referral ~ PROCEDURE: XR CHEST PORTABLE CLINICAL HISTORY: RT CP WITH INSPIRATI ON, SOA Right-sided chest pain on deep inspirat ion COMPARISON: LDCTLCAS LDCT FOR LUNG CA SCREEN from 12/31/[address] chest wo con from 10/05/2018 Chest from 10/05/2018 FINDINGS: The cardiomediastinal silhouette and pu lmonary vascularity are within normal limits. Consolidation is present involving the right upper lobe laterally abutting the fissure consistent pneumon ia. There is mild hyperinflation suggesting small airway disease. In addition, there is a nodular opacity overlying left low er lobe which measures 10 mm. No acute bony abnormalities. IMPRESSION: 1. Right upper lobe pneumonia. 2. Left lower lobe nodule which may be better evaluated with CT. Dictated by: Dat Gaviria MD 02/24/2019 13:01 Electronically signed by Dat Gaviria in [place] 02/24/2019 13:01 Radiology Report February 24, 2019 Dat Gaviria MD completed 12:46pm [facility] [address] [place] [facility] [address] [place] [address] Ultrasoun d Report Sig jm Patient: Timothy Rivera MR#: [id number] : 1940 Acct:[id number] Age/Sex: 78 / M ADM Date: 9 Loc: ER Attending Dr: Ordering Physician: Anabella Brown MD Date of Service: 02/24/19 Procedure(s): US gallbladder Accession Number(s): [id number] cc: Dat Gaviria MD; Provider,Referral ~ PROCEDURE: US GALLBLADDER CLINICAL INDICATION: RUQ abd pain Right upper quadrant pain COMPARISON: No exams were available fo r comparison FINDINGS: Pancreas: Unremarkable/Not well seen Liver: Unremarkable. There is appropri ate direction of blood flow within a non dilated portal vein. Right kidney: Unremarkable appearing. N o hydronephrosis. Gallbladder: No stones are evident. Th ere is no gallbladder wall thickening. Common duct is normal in di ameter. Layering sludge is present in the gallbladder. No obvious shadowing gallstones. IMPRESSION: Gallbladder sludge otherwise negative Dictated by: Dat Gaviria MD 02/24/2019 15:02 Electronically signed by Dat Gaviria in [place] 02/24/2019 15:02 Radiology Report February 24, 2019 Dat Gaviria MD completed 5:26pm [facility] [address] [place] [facility] [address] [place] [address] [address] Scan Report Sig jm Patient: Timothy Rivera MR#: [id number] : 1940 Acct:[id number] Age/Sex: 78 / M ADM Date: 9 Loc: Attending Dr: Karthik George MD Ordering Physician: Anabella Brown MD Date of Service: 02/24/19 Procedure(s): CT chest wo con Accession Number(s): [id number] cc: Dat Gaviria MD; Anabella Brown MD; Karthik Johnson MD~ PROCEDURE: CT CHEST WO CON CLINICAL INDICATION: rule out mass Right-sided chest pain, abdomen x-ray w ith pulmonary nodule COMPARISON: LDCTLCAS LDCT FOR LUNG CA SCREEN from 12/31/[address] chest wo con from 10/05/2018 CT ANGIO ABDOMEN from 11/26/2018 XR CHEST PORTABLE from 02/24/2019 TECHNIQUE: Axial images obtained with sagittal and coronal reformats. All CT scans at the facility use one or more dose reduction, viz: automated exposure cont rol, ma/kV adjustment per patient size (including targeted exams where dose is matched to indication, i.e. head), or iterative re construction technique. FINDINGS: There are few small mediastinal lymph n odes which are slightly more prominent compared to the previous exam . There is a precarinal lymph node present that measures 1.2 cm previ ously measuring 0.8 cm. Coronary artery calcifications are note d. Normal heart size. COPD with centrilobular emphysema. Sca ttered areas of scarring are present. Apical scarring noted on righ t. There is an irregular density in the left upper lobe measurin g 1.7 cm. This has a suspicious appearance and may be very s lightly more prominent compared to the previous exam. Previous ly there was a 7 mm nodule in the left upper lobe posteriorly. This n ow measures 5 mm. There is consolidation involving the central asp ect of the right upper lobe inferiorly. This is somewhat atypical e xtending a linear fashion anterior to posterior with surrounding areas of interstitial thickening and patchy density. There is some scarring in the lingula inferiorly. There has been prior aortic stent graft placed within abdominal aortic aneurysm. The [place] a neurysm sac measures 5.2 cm transverse not significantly changed. . IMPRESSION: 1. New consolidation in the right upper lobe consistent with pneumonia. This is most dense in the ce ntral aspect of the right upper lobe having a somewhat linear con figuration. Recommend following till clear. 2. Left upper lobe nodule at 1.7 cm whi ch appears slightly more prominent suspicious for neoplasm. 3. Previously noted 7 mm nodule in the central aspect of the left upper lobe has decreased in size at 5 m m. 4. Centrilobular emphysema with other n onacute findings as described above. Dictated by: Dat Gaviria MD 02/24/2019 18:16 Electronically signed by Dat Gaviria in [place] 02/24/2019 18:16 Advance Directives Advance Directive Response Recorded Date/Time Living Will No February 24, 2019 6:11pm Chief Complaint and Reason for Visit Chief Complaint Post Scope Follow-up Pneumonia Reason for Visit Acute exacerbation of chroni c obstructive airways disease Community acquired pneumonia SIRS (systemic inflammatory response syndrome) Encounters Encounter Location(s) Arrival/Admit Date Discharge/Depart Date Provider(s) Departed [facility] Physician December 14, December 14, 2018 Amina Santana Physician/[facility]-Surgical 2018 10:10am 10:34am MD jena Office Suite Visit Admitted [facility] Physician February 24, Karthik gibson , Inpatient Group-Second 2018 5:30pm Floor Registered [facility] Physician February 25, Angel Gibson Inpatient Group- 2018 2:06pm MD Chidi Recent Diagnosis Onset Date Acute exacerbation of chronic obstructive airways dise ase Community acquired pneumonia SIRS (systemic inflammatory response syndrome) Assessments Diagnosis Onset Date Resolution Status Acute exacerbation of acute chronic obstructive airways disease Community acquired acute pneumonia SIRS (systemic acute inflammatory response syndrome) Functional Status Observation Response Date Recorded Oral Care Ability Independent February 24, 2019 6:11pm Bathing Ability Independent February 24, 2019 6:11pm Eating (Feeding) Ability Independent February 24, 2019 6:11pm Toileting Ability Independent February 24, 2019 6:11pm Ambulation Ability Independent February 24, 2019 6:11pm Functional status ambulatory December 14, 2018 11:04am Goals Ambulatory Goals Patient verbalized understanding of dise ase process. Plan of care discussed. Education provided. Immunizations Immunization Event Date Not Given Dose Manager Speech Lot Vac cine Reason Number Number Informatio n Statement (VIS) Deta il Influenza, December unspecified 2016 formulation Mental Status Observation Response Date Recorded Comprehension Ability No Impairment February 25 1:00pm Able to Read Yes February 24, 2019 6:11pm Able to Write Yes February 24, 2019 6:11pm Ability to Follow Directions Good February 242018 6:11pm Eye Contact Maintains Eye Contact February 24 9 6:11pm Oral Expression Ability No Impairment February 24 019 6:11pm Medical Equipment No Medical Equipment Information available Insurance Providers Guarantor [facility] Address [address] [place] [address] Contact Info. Home Phone: Payer Policy Id Coverage Id Subscriber's Subscriber Id Effective E xpiration Name Date Date Medicare [id number] [place] [id number] [facility] [address] [place] of [id number] [place] [id number] [facility] Self Pay Self N/A Plan of Treatment Patient is doing well after upper endoscopy with biopsies and dilatation. I recommend he remain on proton pump inhibitors. I recommend he be cognizant of eating foods such as meats and breads. I will see him on an as-needed basis. As it appears as though he has refused a PET CT scan based on findings on his CT scan of his chest it may be reasonable to proceed with a follow-up interval CT scan in several months. However, this would either need to be done through pulmonary or primary provider. Future Tests Future scheduled test information is unavailable Pending Tests Pending diagnostic test information is unavailable Future Visits Future appointment information is unavailable Referrals to Other Providers Reason for Referral Start Provider Provider Contact Provider Address Referral Date Information Admission to [facility] February 252018 [facility] Future Procedures Future procedure information is unavailable Future Medications Future medication information is unavailable Patient Instructions Pneumonia-Adult Social History Assigned Sex Male Vital Signs Vital Reading Result Reference Range Collection Date/ Time Height 182.88 cm December 14, 2018 10:29am Weight 71.66 kg December 14, 2018 10:29am Heart Rate 69 /min 60-90 December 14, 2018 10:29am BP Systolic 118 mm[Hg] 110-140 December 14, 2018 10:29am BP Diastolic 67 mm[Hg] 60-90 December 14, 2018 10:29am BMI (Body Mass Index) 21.4 kg/m2 December 14, 2018 10:29am Height 182.88 cm February 25, 2 019 5:08am Weight 69.00 kg February 25, 2 019 5:08am Body Temperature 97.8 [degF] 97.6-99.6 February 25, 2019 12:00pm Heart Rate 82 /min 60-90 February 25, 2 019 1:48pm Respiratory rate 20 /min -February 25, 2019 12:00pm Oxygen saturation by 94 % 95-100 February 252018 Pulse oximetry 12:00pm BP Systolic 137 mm[Hg] 110-140 February 25, 2 019 12:00pm BP Diastolic 67 mm[Hg] 60-90 February 25, 2 019 12:00pm BMI (Body Mass Index) 20.6 kg/m2 February 142018 5:08am
--- NOTE | 2019-02-26 07:05 | Progress Note ---
Internal Medicine - PN: Subj *Date: 02/26/19 *Time: 07:04 Interval history: Patient feels slightly improved. He notes dyspnea on exertion. He reports he does use home oxygen at night only. Cough remains nonproductive. Exam Vital signs and Labs for Last 24 Hours: Temp Pulse Resp BP Pulse Ox 97.8 F 83 18 138/73 94 L 02/26/19 04:00 02/26/19 04:06 02/26/19 04:00 02/26/19 04:00 02/26/19 04:00 I & O for Last 24 hours: Intake & Output 02/23/19 02/24/19 02/25/19 02/26/19 11:59 11:59 11:59 11:59 Intake Total 240 / 240 2779 / 2779 Output Total 1100 / 1100 Balance 240 / 240 1679 / 1679 Weight 148 lb 152 lb 2 oz 156 lb 3 oz Narrative: He is in no distress sitting up in bed with nasal cannula in place. Lung exam did have rales at the right midlung heard posteriorly. Heart has a regular rate and rhythm Assessment and Plan (1) Community acquired pneumonia Current visit: Yes Status: Acute Qualifiers: Laterality: right Lung location: upper lobe of lung Qualified Code(s): J18.9 - Pneumonia, unspecified organism Category: Medical Code(s): J18.9 - Pneumonia, unspecified organism (2) Acute exacerbation of chronic obstructive airways disease Current visit: Yes Status: Acute Category: Medical Code(s): J44.1 - Chronic obstructive pulmonary disease with (acute) exacerbation (3) Neoplasm of lung Current visit: Yes Status: Acute Category: Medical Code(s): D49.1 - Neoplasm of unspecified behavior of respiratory system - Assessment and plan all Dx Assessment and Plan for all problems:: 1. Continue IV antibiotics, duo nebs. Increase ambulation today and monitor room air sats
--- NOTE | 2019-02-27 06:42 | Discharge Summary ---
General - General Admission date:: 02/24/19 Discharge date: 02/27/19 HPI HPI: 78-year-old male with likely COPD presents to the emergency department with approximately 3 days of cough with increasing shortness of breath. Patient does not know if he has had fevers at home. Cough is primarily nonproductive but has associated weakness and nausea. Patient has been smoking since the age of 10 and currently smokes a pack of cigarettes per day. Work-up in the emergency department showed a right upper lobe pneumonia as well as a nodule in the left upper lobe concerning for neoplasm. Patient was admitted for IV antibiotics. Patient reports that shortly after admission he felt like he was already improving but overnight and around 3 AM he awoke and felt rather weak and restless. He has a sensation of chest congestion and pain in the posterior right mid back Hospital Course Hospital Course: Patient was admitted and placed on Rocephin and azithromycin for treatment of community-acquired pneumonia. Duo nebs 4 times a day were also ordered. Patient was quite dyspneic on admission and dyspnea improved a little each day. Patient responded well to antibiotics and aerosols. Patient does have underl randall COPD and uses supplemental oxygen at home when he sleeps. On the day prior to discharge patient remained in the low to mid 90s on room air and uses supplemental oxygen at night. His cough was dry for the admission and he was not able to produce quality sputum. Blood cultures were negative. When patient was admitted a CT scan was performed which showed a left lung lesion suspicious for neoplasm. Patient will require further work-up as an outpatient. Objective Vital signs: Temp Pulse Resp BP Pulse Ox 98.4 F 81 18 140/83 93 L 02/27/19 04:00 02/27/19 04:00 02/27/19 04:00 02/27/19 04:00 02/27/19 04:00 no acute distress - *Routine Respiratory Exam Comments: Rales posterior right midlung - *Routine Cardiovascular Exam Present: RRR, Normal S1, Normal S2 Results Labs on day of discharge: Preliminary micro results at discharge 02/24/19 11:50 Blood Culture - Preliminary Blood NO GROWTH AFTER 48 HOURS 02/24/19 11:50 Blood Culture - Preliminary Blood NO GROWTH AFTER 48 HOURS DS: Diagnosis - Discharge Diagnosis (1) Community acquired pneumonia Status: Acute (2) Acute exacerbation of chronic obstructive airways disease Status: Acute (3) Neoplasm of lung Status: Acute Discharge Plan - Patient Discharge Instructions ACTIVITY: Continue current activity DIET: continue same diet Patient Instructions: Pneumonia-Adult, DI for Chronic Obstructive Pulmonary Disease - Follow up Plan Follow up with: Karthik George MD [Primary Care Provider] - 03/01/19 Disposition: Home, Self-Fpc Medications: Home Medications Medication Instructions Recorded Confirmed Type albuterol sulfate HFA 90 2 puffs IH Q4HP PRN 05/15/17 02/25/19 History mcg/actuation aerosol inhaler aspirin 81 mg tablet,delayed 81 mg PO DAILY tab 05/15/17 02/24/19 History release atorvastatin 40 mg tablet 40 mg PO DAILY #30 tab 06/08/18 02/24/19 Rx omeprazole 20 mg capsule,delayed 20 mg PO DAILY 11/11/18 02/24/19 History release furosemide 20 mg tablet 20 mg PO DAILY #30 tab 12/01/18 02/24/19 Rx amlodipine 10 mg tablet 10 mg PO DAILY #90 tab 01/18/19 02/24/19 Rx Cyclobenzaprine HCl 10 mg PO HSP PRN 02/24/19 02/25/19 History [Cyclobenzaprine 10mg Tab] Metoprolol Tartrate [Lopressor 100 100 mg PO BID 02/25/19 02/24/19 History mg Tablets] Azithromycin [Azithromycin 500mg 500 mg PO DAILY #3 tab 02/27/19 Rx Tab] guaiFENesin [Mucinex 600mg tablet] 600 mg PO BID #30 tab.er.12h 02/27/19 Rx Prescriptions/Medication Reconciliation: New guaiFENesin [Mucinex 600mg tablet] 600 mg PO BID #30 tab.er.12h Azithromycin [Azithromycin 500mg Tab] 500 mg PO DAILY #3 tab Continued aspirin 81 mg tablet,delayed release 81 mg PO DAILY tab albuterol sulfate HFA 90 mcg/actuation aerosol inhaler 2 puffs IH Q4HP PRN PRN Reason: Shortness Of Breath atorvastatin 40 mg tablet 40 mg PO DAILY #30 tab omeprazole 20 mg capsule,delayed release 20 mg PO DAILY amlodipine 10 mg tablet 10 mg PO DAILY #90 tab furosemide 20 mg tablet 20 mg PO DAILY #30 tab Cyclobenzaprine HCl [Cyclobenzaprine 10mg Tab] 10 mg PO HSP PRN PRN Reason: MUSCLE RELAXER Metoprolol Tartrate [Lopressor 100 mg Tablets] 100 mg PO BID - Problem Reconciliation Problems Reviewed?: Yes
== END 2019-02-27 09:12 | disposition home or self-care (01) | DRG 190 ==
LOC: ER 11:35 → 2ND 11:35 → OBSVTOIN 17:30 → 2ND 18:03
PROVIDERS: ADMIT Emergency Medicine; ATTEND Family Medicine
CPT/HCPCS: 36415; 71010; 71045; 71250; 76705; 80048; 80053; 82150; 82962; 83605; 83690; 84484; 85007; 85025; 87040; 87070; 87205; 93005; 94640; 94761; 96365; 96367; 96375; 99285; J0456

== ENCOUNTER → 2019-08-25 09:36 | Outpatient (CLI) | payer MEDICARE, OTHER, SELFPAY ==
--- NOTE | 2019-08-25 10:01 | CT_ITS ---
Procedure: CT ANGIO ABDOMEN PELVIS CLINICAL HISTORY: AAA Evaluate abdominal aortic aneurysm COMPARISON: CTAA CTA-ABD from 03/12/2016 CT ANGIO ABDOMEN from 11/26/2018 TECHNIQUE: IV Contrast: 100ml Optiray 350 Axial images obtained with sagittal and coronal reformats. All CT scans at the facility use one or more dose reduction, viz: automated exposure control, ma/kV adjustment per patient size (including targeted exams where dose is matched to indication, i.e. head), or iterative reconstruction technique. FINDINGS: There has been prior aortic stent graft placed. The galena aneurysm sac does not appear significantly changed measuring approximately 7.8 cm in diameter transverse and 6.7 cm AP. The internal lumen/graft diameter is 3.3 cm similar to the previous exam. No evidence of stent graft leak. There is some mural calcification similar to the previous exam. Bilateral common iliac artery stents are present as well and appear patent. No evidence of acute retroperitoneal hemorrhage. The SMA and celiac are patent with calcific plaque at the ostium. The left renal artery originates at the superior aspect of the graft. The ostium is not well delineated due to the graft itself. The right renal artery ostium is also near the superior aspect of the graft with some calcific plaque at the ostium with suspected moderate to high-grade stenosis of at least the ostium of the right renal artery and possibly the left renal artery as well. Nonvascular findings: Mild thickening at the GE junction nonspecific. There is some unusual enhancement of the right hepatic lobe. This however has had a similar appearance on previous exams dating back to 03/12/2016 and could be due to some shunting within the liver of questionable clinical significance. The spleen, adrenal glands, and pancreas are unremarkable. There is some left renal cortical atrophy but no hydronephrosis or renal mass. No intestinal obstruction or free air. There is diverticulosis of the sigmoid colon but no evidence of diverticulitis. There are degenerative changes of the spine and hips IMPRESSION: . The 1. Overall no change in the abdominal aortic aneurysm status post aortoiliac stent graft. 2. Suspect high-grade bilateral renal artery stenosis. The ostium of the renal arteries is somewhat obscured by the stent. The left renal artery ostium may be covered by the stent. There is mild left renal cortical atrophy. 3. Colonic diverticulosis Dictated by: Dat Gaviria MD 08/26/2019 10:02 Electronically signed by Dat Gaviria MD in [facility] 08/26/2019 10:02
[2019-08-25 10:06] LABS: Blood Urea Nitrogen 31 mg/dl (9-20); Estimated Glomerular Filt Rate 39 ml/min (>60); GFR (African American) 47 ML/MIN (>60)
== END ==
PROVIDERS: PCP Family Medicine; Visit Provider Urology
DX: I71.4 Abdominal aortic aneurysm, without rupture (principal)
CPT/HCPCS: 36415; 74174; 82565; 84520; Q9967

== ENCOUNTER → 2019-12-31 14:50 | Outpatient (CLI) | payer MEDICARE, OTHER, SELFPAY ==
--- NOTE | 2019-12-31 15:03 | XR_ITS ---
PROCEDURE: XR CHEST 2V CLINICAL HISTORY: COPD, RT SIDED CHEST PAIN COMPARISON: CR Chest from 10/05/2018 CR XR CHEST PORTABLE from 02/24/[address] CHEST WO CON from 02/24/2019 FINDINGS: The cardiomediastinal silhouette and pulmonary vascularity are within normal limits. Changes of COPD. Hyperinflation with attenuation of the peripheral pulmonary vessels. There is blunting of the CP angles. There is an aorta stent graft present in the abdominal region. On the lateral view there is a suggestion of an air-fluid level in the posterior hilar region. This is not confirmed on the frontal view. Previous chest CT did show a bulla in the subcarinal area posteriorly. Fluid level could be within an infected bulla. Chest CT with contrast suggested for further evaluation. No acute bony abnormalities. IMPRESSION: COPD. Air-fluid level in the hilar region noted on the lateral view possibly within an infected bulla or within the bronchus itself. Chest CT with contrast suggested for further evaluation. Dictated by: Dat Gaviria MD 12/31/2019 16:44 Dat Gaviria MD in [facility] 12/31/2019 16:44
== END ==
PROVIDERS: PCP Nurse Practitioner Family; Visit Provider Nurse Practitioner Family
DX: R07.89 Other chest pain (principal); J44.9 Chronic obstructive pulmonary disease, unspecified
CPT/HCPCS: 71046

== ENCOUNTER → 2020-01-05 10:57 | Outpatient (CLI) | payer MEDICARE, OTHER, SELFPAY ==
--- NOTE | 2020-01-05 11:01 | CT_ITS ---
PROCEDURE: CT CHEST W CON CLINCAL INDICATION: ABNORMAL CHEST X-RAY Worsening shortness of air, abnormal chest x-ray. Evaluate air-fluid level in the hilar region. COMPARISON: CT LDCTLCAS LDCT FOR LUNG CA SCREEN from 12/31/[address] CHEST WO CON from 02/24/2019 CR XR CHEST 2V from 12/31/2019 TECHNIQUE: IV Contrast: 75ml Optiray 350 Axial images obtained with sagittal and coronal reformats. All CT scans at the facility use one or more dose reduction, viz: automated exposure control, ma/kV adjustment per patient size (including targeted exams where dose is matched to indication, i.e. head), or iterative reconstruction technique. FINDINGS: There are severe centrilobular and panlobular emphysematous changes. Severe coronary artery calcifications are noted. In the posterior mediastinal area there is a circumscribed fluid collection with an air-fluid level. This measures 4.7 cm cephalad caudad 3.7 cm transverse and 2.9 cm anterior to posterior. There is an air-fluid level within this collection superiorly and area of loculated fluid inferiorly. Previously there was a bulla in this region. This is suspicious for an infected bulla/abscess. This begins at the level of the vivek and extends inferiorly for a length 4.7 cm. Along the posterior inferior margin of this abnormality there is a small bulla in there is also a small bulla along the superior aspect of this lesion. Patchy density is present within the adjacent lung on the right next to this abnormality. No mediastinal adenopathy apparent. There are small precarinal nodes which are unchanged. There are scattered parenchymal opacities there are once again noted. In the right apex there is a parenchymal opacity irregular in nature at approximately 1.3 cm unchanged and may be due to an area of scarring with some calcification along the lower margin. There is some mild prominence of the interstitium in the lung base on the right In the left apex there is a spiculated nodule measuring 1.8 cm. This may be slightly larger compared to the most recent study but has increased in size compared to 12/31/2016. There is a subpleural opacity in the left lung base posteriorly and may be due to an area of scarring. There is some scattered ground-glass opacity in the left upper lobe. Upper abdominal images show an aortic aneurysm with prior aortic stent graft placed. The [place] aorta measures 5 point 5 cm in AP dimension not significantly changed. There is mild stranding of the perinephric renal fat on both sides. No acute bony findings are evident. IMPRESSION: 1. 4.7 x 3.7 x 2.9 cm complex fluid collection posterior to the subcarinal region and may represent an infected bulla or abscess. Differential diagnosis would include necrotic posterior mediastinal mass or abscess in the posterior mediastinum. 2. Severe centrilobular and panlobular emphysematous changes with scattered areas of scarring. 3. 1.8 cm spiculated nodule left upper lobe suspicious for neoplasm which may be very slightly larger compared to 02/24/2019 4. Scattered ground-glass attenuation in the left upper lobe which may be due to inflammatory/infectious etiology. 5. Prior aortic stent graft for abdominal aortic aneurysm Dictated by: Dat Gaviria MD 01/06/2020 09:52 Dat Gaviria MD in [facility] 01/06/2020 09:52
== END ==
PROVIDERS: PCP Nurse Practitioner Family; Visit Provider Nurse Practitioner Family
DX: R93.89 Abnormal findings on diagnostic imaging of other specified body structures (principal)
CPT/HCPCS: 71260; Q9967

== ENCOUNTER → 2020-02-21 08:02 | Outpatient (CLI) | payer MEDICARE, OTHER, SELFPAY ==
--- NOTE | 2020-02-21 08:03 | CA_ITS ---
APPROVED REPORT Line Haul Driver: Anastasiia Freeman RVT Study Quality: Adequate Indications: HUMBERTO on CT angio abdomen AUGUST 2019. Risk Factors Hypertension Hyperlipidemia Smoking PRIOR AAA REPAIR Renal Artery Doppler Proximal (R) 157.0/ cm/sec Mid (R) 114.3/ cm/sec Distal (R) 59.5/ cm/sec Renal Aorta Ratio (R) 4.90 Segmental A. (R) 58.7/19.1 cm/sec RI: 0.67 Segmental A. Sup (R) 58.7/19.1 cm/sec Segmental A. Mid (R) 48.0/11.8 cm/sec Segmental A. Inf (R) 48.1/8.3 cm/sec Origin (L) 73.6/ cm/sec Mid (L) 83.0/ cm/sec Distal (L) 56.2/ cm/sec Renal Aorta Ratio (L) 2.58 Segmental A. (L) 32.4/7.4 cm/sec RI: 0.77 Segmental A. Sup (L) 31.3/6.4 cm/sec Segmental A. Mid (L) 32.4/7.4 cm/sec Segmental A. Inf (L) 20.2/3.7 cm/sec Renal Measurements Kidney Size (R) 9.3x7.0 cm Cortical Thickness (R) 1.1 cm Kidney Size (L) 9.2x6.1 cm Cortical Thickness (L) 2.0 cm Findings Study suggests greater than 60% stenosis of the right renal artery. Study suggests no evidence of stenosis of the left renal artery. 6.9 X 6.4 cm kaw aneurysm sac seen with 3.2 X 4.2 cm patent graft seen. Conclusion Study suggests greater than 60% stenosis of the right renal artery. Study suggests no evidence of stenosis of the left renal artery. 6.9 X 6.4 cm kaw aneurysm sac seen with 3.2 X 4.2 cm patent graft seen. Electronically signed by : Dat Gaviria MD 02/21/2020 17:32:52
== END ==
PROVIDERS: PCP Nurse Practitioner Family; Visit Provider Urology
DX: E78.5 Hyperlipidemia, unspecified (principal); F17.200 Nicotine dependence, unspecified, uncomplicated; I11.9 Hypertensive heart disease without heart failure; I25.10 Atherosclerotic heart disease of native coronary artery without angina pectoris; I70.1 Atherosclerosis of renal artery; I71.4 Abdominal aortic aneurysm, without rupture; I73.9 Peripheral vascular disease, unspecified; R06.00 Dyspnea, unspecified
CPT/HCPCS: 93976

== ENCOUNTER → 2020-03-27 13:42 | Outpatient (CLI) | payer MEDICARE, OTHER, SELFPAY ==
--- NOTE | 2020-03-27 13:43 | CA_ITS ---
APPROVED REPORT EXAM: Comprehensive 2D, Doppler, and color-flow Echocardiogram Legal Instruments Examiner: Sanaz Duque CRT Ht: 6 ft 0 in Wt: 155lbs BSA: 1.91 BP: 133/77 mmHg Indications: COPD, Shortness of Breath, Hyperlipidemia, Hypertension/HDD, AAA repair, PAD, Home O2 @ night, smoker 2D Dimensions LVOT 1.91 cm (M/F) 1.5-2.5 M-Mode Dimensions RVDd 3.11 cm (0.9-2.6) LA Diam 3.01 cm (1.9-4.0) LVDd 4.03 cm (3.5-5.7) Ao Diam 4.12 cm (2.0-3.7) LVDs 2.93 cm (3.5-5.7) IVSd 1.61 cm (0.6-1.1) PWd 0.54 cm (0.6-1.1) EF (Teich) 53.70% FS 27.30% EDV (Teich) 71.30 mL ESV (Teich) 33.00 mL LV Diastology E Decel Time 150.00 (160-240 msec) E/A Ratio 0.69 MED E' 8.30 (< 7 cm/sec) MED A' 14.00 cm/s E'/MED E' Ratio 5.95 (>14) LAT E' 11.10 (<10 cm/sec) LAT A' 13.30 cm/s E/LAT E' Ratio 4.45 (>14) Aortic Valve AO Peak GR. 6.30 mmHg Mitral Valve MV E Max Primitivo. 49.00 (40-130 cm/s) MV A Velocity 72.00 (40-130 cm/s) E/A Ratio 0.69 MV Decel. Time 150.00 (160-240 ms) MV PHT 44.00 ms Pulmonary Valve PV Peak Velocity 64.00 (50-150 cm/s) Tricuspid Valve TR P. Velocity 359.00 cm/s RAP Estimate 10.00 mmHg RVSP 61.50 mmHg Left Ventricle Technically difficult study because of the patient factors and poor acoustic windows. Left atrium is mildly enlarged, left ventricle is normal size, mild concentric left ventricular hypertrophy, visually estimated ejection fraction 55% with no regional wall motion abnormality, grade 1 diastolic dysfunction seen with tissue Doppler evidence of raise left atrial pressure. Right Ventricle Right atrium and right ventricle are mildly enlarged with normal contractility. Aortic Valve Aortic valve is minimally thickened and fibrosed, there is no aortic stenosis or aortic insufficiency. Mitral Valve Mitral valve is grossly normal, there is mild mitral regurgitation. Tricuspid Valve Tricuspid valve is grossly normal, there is mild tricuspid regurgitation, calculated right ventricular systolic pressure is 48 mmHg. Pulmonic Valve Pulmonic valve is poorly visualized. Great Vessels Aortic root is normal size. Pericardium No significant pericardial effusion noted. Conclusion 1. Technically difficult study, biatrial enlargement, normal left ventricular size, mild concentric left ventricular hypertrophy, visually estimated ejection fraction 55% with no regional wall motion abnormality, grade 1 diastolic dysfunction seen with tissue Doppler evidence of raise left atrial pressure. 2. Mildly enlarged right ventricle with normal contractility. 3. Mild mitral and tricuspid regurgitation, calculated right ventricular systolic pressure is 48 mmHg. 4. No significant pericardial effusion noted. Electronically signed by : Maxwell Hastings, 03/28/2020 06:00:52
== END ==
PROVIDERS: PCP Nurse Practitioner Family; Visit Provider Urology
DX: E87.5 Hyperkalemia (principal); F17.200 Nicotine dependence, unspecified, uncomplicated; I45.10 Unspecified right bundle-branch block; I71.4 Abdominal aortic aneurysm, without rupture; I73.9 Peripheral vascular disease, unspecified; N28.9 Disorder of kidney and ureter, unspecified; R06.00 Dyspnea, unspecified
CPT/HCPCS: 93306

== ENCOUNTER → 2020-04-19 17:29 | Outpatient (CLI) | payer MEDICARE, OTHER, SELFPAY | PROVIDERS: PCP Nurse Practitioner Family; Visit Provider Internal Medicine | DX: G47.33 Obstructive sleep apnea (adult) (pediatric) (principal) | CPT/HCPCS: G0399 ==

== ENCOUNTER → 2020-05-23 15:39 | Outpatient (CLI) | payer MEDICARE, OTHER, SELFPAY | PROVIDERS: PCP Nurse Practitioner Family; Visit Provider Obstetrics & Gynecology Gynecology | DX: Z01.818 Encounter for other preprocedural examination (principal); Z11.52 Encounter for screening for COVID-19 | CPT/HCPCS: U0003 ==

== ENCOUNTER → 2020-07-18 15:31 | Outpatient (CLI) | payer MEDICARE, OTHER, SELFPAY ==
--- NOTE | 2020-07-18 | XR_ITS ---
PROCEDURE: XR SHOULDER RT MIN 2V CLINICAL INDICATION: INJURY DUE TO FALL COMPARISON: No exams were available for comparison FINDINGS: Mild osteoarthritic change of the acromioclavicular and glenohumeral joint. No acute fracture or dislocation. Other findings:None. IMPRESSION: Mild osteoarthritis otherwise Dictated by: Dat Gaviria MD 07/18/2020 16:27 Dat Gaviria MD in [facility] 07/18/2020 16:27
--- NOTE | 2020-07-18 | XR_ITS ---
PROCEDURE: XR LUMBAR SPINE MIN 4V CLINICAL INDICATION: INJURY DUE TO FALL COMPARISON: CT CT ANGIO ABDOMEN PELVIS from 08/25/2019 FINDINGS: Aortoiliac stent graft is noted within a fusiform abdominal aortic aneurysm.. There is normal alignment. Degenerative disc disease is present from L2-S1 which is most severe at L5-S1.. There is mild concavity along the superior endplate of L1 which was not readily apparent on a previous CT scan of 08/25/2019. There is minimal lumbar curvature convex right. IMPRESSION: Minimal concave deformity of the superior endplate of L1 consistent with mild compression changes. This was not present on 08/25/2019. Degenerative changes as described above Dictated by: Dat Gaviria MD 07/18/2020 16:25 Dat Gaviria MD in [facility] 07/18/2020 16:25
--- NOTE | 2020-07-18 | XR_ITS ---
PROCEDURE: XR HIP RT 2-3V W/PELVIS CLINICAL INDICATION: INJURY DUE TO FALL COMPARISON: No exams were available for comparison FINDINGS: Mild osteoarthritic changes involving both hips as seen on the AP view of the pelvis. No acute fracture or dislocation evident of the right hip. No lytic or blastic change. Aortoiliac stent graft noted. IMPRESSION: Osteoarthritis, no acute finding Dictated by: Dat Gaviria MD 07/18/2020 16:26 Dat Gaviria MD in [facility] 07/18/2020 16:26
== END ==
PROVIDERS: PCP Nurse Practitioner Family; Visit Provider Nurse Practitioner Family
DX: M25.511 Pain in right shoulder (principal); M54.41 Lumbago with sciatica, right side; M25.551 Pain in right hip; S79.911A Unspecified injury of right hip, initial encounter; W19.XXXA Unspecified fall, initial encounter
CPT/HCPCS: 72110; 73030; 73502

== ENCOUNTER → 2020-07-29 11:06 | Outpatient (CLI) | payer MEDICARE, OTHER, SELFPAY ==
--- NOTE | 2020-07-29 11:20 | MR_ITS ---
PROCEDURE INFORMATION: Exam: MR Lumbar Spine Without Contrast Exam date and time: 07/29/2020 11:20 AM Age: 80 years old Clinical indication: Pain and injury or trauma; Fracture, traumatic injury; Not specified; First lumbar vertebra; Low back pain and lumbago; Patient HX: S/P fall 3 weeks ago with compression changes seen at l1 on prior xray. PT has aaa stent graft that degrade the images. Minimal concave deformity of the superior endplate of l1 consistent with mild compression changes. This was not present on 08/25/2019 seen on prior l-spine xrays; Additional info: Fall with lbp TECHNIQUE: Imaging protocol: Multiplanar magnetic resonance images of the lumbar spine without intravenous contrast. COMPARISON: CR XR LUMBAR SPINE MIN 4V 07/18/2020 3:52 PM FINDINGS: Vertebrae: Increased signal along the superior endplate of L1 is seen. This shows low signal on T1 weighted sequences and increased signal on T2 weighted sequences. Given that the patient has pain directly in this region consider that this could be related to a nondisplaced fracture. Spinal cord: Normal signal. No cord compression. L1 no gross focal disc protrusion or extrusion is seen. Mild degenerative disc and facet joint arthropathy is seen without associated significant spinal or neural foraminal stenosis as visualized.. Soft tissues: The study is extremely limited by extensive metallic artifact from prior aortic stent placement. No gross soft tissue abnormality is seen. IMPRESSION: Increased signal along the superior endplate of L1 is seen. This shows low signal on T1 weighted sequences and increased signal on T2 weighted sequences. Given that the patient has pain directly in this region consider that this could be related to a nondisplaced fracture.
== END ==
PROVIDERS: PCP Nurse Practitioner Family; Visit Provider Nurse Practitioner Family
DX: M54.5 Low back pain (principal); M54.41 Lumbago with sciatica, right side; R93.7 Abnormal findings on diagnostic imaging of other parts of musculoskeletal system
CPT/HCPCS: 72148; 76376

== ENCOUNTER → 2020-10-16 16:22 | Outpatient (CLI) | payer MEDICARE, OTHER, SELFPAY ==
--- NOTE | 2020-10-16 16:45 | XR_ITS ---
PROCEDURE INFORMATION: Exam: XR Chest Exam date and time: 10/16/2020 4:45 PM Age: 80 years old Clinical indication: Patient HX: Chest pain, shortness of breath, copd. ; Additional info: Chest pain, copd, shortness of breath TECHNIQUE: Imaging protocol: XR of the chest. Views: 2 views. COMPARISON: CT CHEST W CON 01/05/2020 11:26 AM FINDINGS: Lungs: The lungs are hyperinflated, consistent with underlying small airways disease. Atelectatic and/or early infiltrative changes noted within the lingula. Atelectatic changes within the lung bases without focal pneumonia. Pleural spaces: There is no evidence of pneumothorax. Small bilateral pleural effusions. Heart/Mediastinum: Unremarkable. No cardiomegaly. Vasculature: The vasculature demonstrates diffuse mild atherosclerotic calcification. Bones/joints: Unremarkable. IMPRESSION: 1. The lungs are hyperinflated, consistent with underlying small airways disease. 2. Atelectatic and/or early infiltrative changes noted within the lingula. 3. Atelectatic changes within the lung bases without focal pneumonia. 4. Small bilateral pleural effusions.
[2020-10-16 17:35] LABS: Basophils # 0.1 K/mm3 (0-0.2); Basophils % 0.8 % (0.1-2.0); Eosinophils # 0.2 K/mm3 (0.0-0.4); Eosinophils % 2.3 % (0.1-12.0); Hematocrit 34.9 % (42.0-52.0); Hemoglobin 11.3 g/dL (14.1-18.0); Lymphocytes # 1.3 K/mm3 (0.7-4.5); Lymphocytes % 18.6 % (10-50); Mean Corpuscular HGB Conc 32.4 g/dL (31.8-35.4); Mean Corpuscular Volume 89.7 fl (80-94); Monocytes # 0.5 K/mm3 (0.1-1.0); Monocytes % 6.6 % (1.7-9.3); Neutrophils # 5.2 K/mm3 (1.8-7.8); Neutrophils % 71.7 % (37.0-80.0); Platelet Count 212 K/mm3 (142-424); Red Blood Count 3.89 M/mm3 (4.60-6.20); Red Cell Distribution Width 15.7 % (11.5-17.5); White Blood Count 7.2 K/mm3 (4.8-10.8)
[2020-10-16 18:03] LABS: Chloride 98 mmol/L (98-107); Potassium 4.6 mmoL/L (3.5-5.1); Sodium 142 mmol/L (136-145)
[2020-10-16 18:06] LABS: Alanine Aminotransferase 11 U/L (12-78); Albumin Level 3.8 g/dl (3.5-5.0); Albumin/Globulin Ratio 1.2 (1.1-1.8); Alkaline Phosphatase 125 U/L (38-126); Anion Gap 10.6 mEq/L (5-15); Aspartate Amino Transferase 22 U/L (17-59); Bilirubin,Total 0.5 mg/dl (0.2-1.3); Blood Urea Nitrogen 36 mg/dl (9-20); Calcium 9.2 mg/dl (8.4-10.2); Carbon Dioxide 38 mmol/L (22.0-30.0); Estimated Glomerular Filt Rate 39 ml/min (>60); GFR (African American) 47 ML/MIN (>60); Globulin 3.1 g/dL (1.3-3.2); Glucose 122 mg/dl (74-100); Total Protein,Serum 6.9 g/dl (6.3-8.2)
[2020-10-16 18:21] LABS: Troponin I < 0.01 ng/ml (0.00-0.034)
[2020-10-16 18:37] LABS: Thyroid Stimulating Hormone 0.96 uIU/mL (0.465-4.68)
== END ==
PROVIDERS: PCP Nurse Practitioner Family; Visit Provider Nurse Practitioner Family
DX: R07.9 Chest pain, unspecified (principal); R06.02 Shortness of breath; J44.9 Chronic obstructive pulmonary disease, unspecified; Z79.899 Other long term (current) drug therapy
CPT/HCPCS: 36415; 71046; 80053; 84443; 84484; 85025

== ENCOUNTER 2020-12-10 01:17 | Inpatient (IN) | payer MEDICARE, OTHER, SELFPAY ==
--- NOTE | 2020-12-09 01:29 | ECG_ITS ---
APPROVED REPORT Exam: Resting ECG HR:117 bpm ECG Measurements Heart Rate 117 AXES IA 146 P 81 QRSd 124 QRS 90 QT 340 T 63 QTc 474 Conclusion Sinus tachycardia Rightward axis Nonspecific intraventricular conduction delay Borderline ECG Electronically signed by : Karthik Arce MD 12/10/2020 20:52:04
[2020-12-10] VITALS (13 sets, daily range): BP systolic 142–168; BP diastolic 82–102; PULSE 70–116; RESP 16–24; TEMP 36.5–36.9; O2SAT 92–99; BMI 21.5
--- NOTE | 2020-12-10 01:28 | XR_ITS ---
PROCEDURE INFORMATION: Exam: XR Chest Exam date and time: 12/10/2020 1:28 AM Age: 80 years old Clinical indication: Shortness of breath; Additional info: SOA TECHNIQUE: Imaging protocol: XR of the chest. Views: 1 view. COMPARISON: CR XR CHEST 2V 10/16/2020 4:50 PM FINDINGS: Lungs: Pulmonary hyperaeration. Interval development of patchy interstitial infiltrates within the perihilar regions and within both lower lobes since prior examination of 10/16/2020. Pleural spaces: Unremarkable. No pleural effusion. No pneumothorax. Heart/Mediastinum: Unremarkable. No cardiomegaly. Atheromatous calcification of the thoracic aorta is evident. Bones/joints: Degenerative changes of the thoracic spine and shoulders. IMPRESSION: 1. Pulmonary emphysema is again identified. 2. There are interval development of patchy interstitial infiltrates noted within both perihilar regions and at both lung bases. 3. Progress examination is suggested.
[2020-12-10 01:37] LABS: Basophils % 0.3 % (0.1-2.0); Eosinophils % 0.1 % (0.1-12.0); Hematocrit 36.4 % (42.0-52.0); Hemoglobin 11.9 g/dL (14.1-18.0); Lymphocytes # 0.3 K/mm3 (0.7-4.5); Mean Corpuscular HGB Conc 32.8 g/dL (31.8-35.4); Mean Corpuscular Hemoglobin 30.2 pg (27.0-31.2); Mean Corpuscular Volume 92.2 fl (80-94); Mean Platelet Volume 8.6 fl (7.4-10.4); Monocytes # 0.3 K/mm3 (0.1-1.0); Monocytes % 4.7 % (1.7-9.3); Neutrophils # 5.9 K/mm3 (1.8-7.8); Neutrophils % 90.9 % (37.0-80.0); Platelet Count 167 K/mm3 (142-424); Red Blood Count 3.95 M/mm3 (4.60-6.20); Red Cell Distribution Width 16.7 % (11.5-17.5); White Blood Count 6.5 K/mm3 (4.8-10.8)
[2020-12-10 01:40] LABS: MANUAL DIFFERENTIAL MANUAL DIFFERENTIAL (MANUAL DIFF)
[2020-12-10 01:44] LABS: Alanine Aminotransferase 27 U/L (12-78); Albumin Level 3.7 g/dl (3.5-5.0); Alkaline Phosphatase 103 U/L (38-126); Anion Gap 16.1 mEq/L (5-15); Aspartate Amino Transferase 49 U/L (17-59); Bilirubin,Total 0.5 mg/dl (0.2-1.3); Blood Urea Nitrogen 60 mg/dl (9-20); Calcium 9.2 mg/dl (8.4-10.2); Carbon Dioxide 36 mmol/L (22.0-30.0); Chloride 89 mmol/L (98-107); Creatinine Clearance Estimated 29 mL/min (50-200); Estimated Glomerular Filt Rate 32 ml/min (>60); GFR (African American) 39 ML/MIN (>60); Globulin 3.7 g/dL (1.3-3.2); Glucose 133 mg/dl (74-100); Potassium 5.1 mmoL/L (3.5-5.1); Sodium 136 mmol/L (136-145); Total Protein,Serum 7.4 g/dl (6.3-8.2)
[2020-12-10 01:49] LABS: C-Reactive Protein 142.1 mg/L (0-4); Lymphocytes % 7 % (10-50); Neutrophils % 89 % (42-76); Platelet Estimate Normal; RBC Morphology Normal; Total Cells Counted 100
[2020-12-10 01:58] LABS: Troponin I 0.03 ng/ml (0.00-0.034)
--- NOTE | 2020-12-10 02:01 | HMH.EDSOB ---
ED Disposition Clinical Impression: COVID-19 with pulmonary comorbidity, RBBB, KARMA (acute kidney injury) COPD (chronic obstructive pulmonary disease) Qualifiers: COPD type: unspecified COPD Qualified Code(s): J44.9 - Chronic obstructive pulmonary disease, unspecified Disposition: Admitted as Observation Condition on Discharge: Good - Critical Care Critical Care Time: No Attestation: On 12/10/20, the high probability of a clinically significant, sudden or life threatening deterioration of the following system(s) required my full and direct attention, intervention and personal management. The time I documented below is in addition to time spent performing reported procedures but includes the following listed in this critical care notation. Medical Decision Making - Medical Records Medical records reviewed: Yes: I reviewed the patient's medical records. - Brian Inquiry Pt receiving controlled substance: No Vital Signs: 12/10/20 01:09 12/10/20 01:21 12/10/20 01:45 Temperature 98.5 F Temperature Source Oral Pulse Rate 111 H 103 H Pulse Rate [Right] 116 H Respiratory Rate 24 23 24 Blood Pressure 143/82 H 148/98 H Blood Pressure [Right Arm] 146/83 H Blood Pressure Mean [Right Arm] 104 02 Sat by Pulse Oximetry 92 L 92 L 94 L Oxygen Delivery Method Nasal Cannula Oxygen Flow Rate (LPM) 3 3 3 12/10/20 02:24 12/10/20 02:25 12/10/20 02:45 Temperature Temperature Source Pulse Rate 92 H 90 89 Pulse Rate [Right] Respiratory Rate 22 21 19 Blood Pressure 148/87 H 142/86 H 142/84 H Blood Pressure [Right Arm] Blood Pressure Mean [Right Arm] 02 Sat by Pulse Oximetry 95 95 94 L Oxygen Delivery Method Oxygen Flow Rate (LPM) 3 3 - Lab Data Lab results reviewed: Yes: I reviewed the patient's lab results. Lab Results 12/10/20 01:22: WBC 6.5, RBC 3.95 L, Hgb 11.9 L, Hct 36.4 L, MCV 92.2, MCH 30.2, MCHC 32.8, RDW 16.7, Plt Count 167, MPV 8.6, Neut % (Auto) 90.9 H, Lymph % (Auto) 4.0 L, [place] % (Auto) 4.7, Eos % (Auto) 0.1, Baso % (Auto) 0.3, Neut # (Auto) 5.9, Lymph # (Auto) 0.3 L, [place] # (Auto) 0.3, Eos # (Auto) 0.0, Baso # (Auto) 0.0, Total Counted 100, Neutrophils % (Manual) 89 H, Band Neutrophils % 4.0, Lymphocytes % (Manual) 7 L, Platelet Estimate Normal, RBC Morphology Normal, ESR 76 H 12/10/20 01:22: Sodium 136, Potassium 5.1, Chloride 89 L, Carbon Dioxide 36 H, Anion Gap 16.1 H, BUN 60 H, Creatinine 2.00 H, Estimated Creat Clear 29, Estimated GFR 32 L, Est GFR ( Amer) 39 L, Glucose 133 H, Calcium 9.2, Total Bilirubin 0.5, AST 49, ALT 27, Alkaline Phosphatase 103, Troponin I 0.03, C-Reactive Protein 142.1 H, Total Protein 7.4, Albumin 3.7, Globulin 3.7 H, Albumin/Globulin Ratio 1.0 L, Procalcitonin 0.569 12/10/20 01:28: SARS-CoV-2 (PCR) Detected A, Influenza A Untype (PCR) Not detected, Influenza Type B (PCR) Not detected 12/10/20 04:05: Troponin I 0.04 H Result diagrams: 12/10/20 01:22 12/10/20 01:22 Orders (Tests/Meds): ED MEDICATIONS Generic Name Dose Route Start Last Admin Trade Name Freq PRN Reason Stop Dose Admin Sodium Chloride 1,000 mls @ 999 mls/hr 12/10/20 01:30 12/10/20 01:37 Sod Chlor 0.9% 1000ml Bag IV 12/10/20 02:30 999 mls/hr .Q1H1M MELISSA Administration Discontinued Medications Generic Name Dose Route Start Last Admin Trade Name Freq PRN Reason Stop Dose Admin Dexamethasone Sodium Phosphate 10 mg 12/10/20 01:30 12/10/20 01:37 Dexamethasone 4mg/Ml 5ml Mdv IV 12/10/20 01:31 10 mg ONCE ONE Administration Ketorolac Tromethamine 30 mg 12/10/20 01:30 12/10/20 01:37 Ketorolac 30mg/Ml Vial IV 12/10/20 01:31 30 mg ONCE ONE Administration ORDERS Category Date Time Status CTA Chest [CT angio chest PE protocol] Stat Cat Scan 12/10/20 01:28 Ordered Troponin I Q3H Lab 12/10/20 07:30 Ordered - Radiology Data #1 Image(s): Chest Image Reviewed: Yes I have reviewed radiologist's interpretation Preliminary Fin
[2020-12-10 02:03] LABS: Erythrocyte Sedimentation Rate 76 mm/hr (0-20); Procalcitonin 0.569 ng/mL (0.0-2.0)
[2020-12-10 02:16] LABS: Influenza A, PCR Not Detected (NotDetected); Influenza B, PCR Not Detected (NotDetected)
[2020-12-10 02:38] LABS: Coronavirus 19, PCR Detected (NotDetected)
[2020-12-10 04:36] LABS: Troponin I 0.04 ng/ml (0.00-0.034)
--- NOTE | 2020-12-10 04:55 | PC.NURSE ---
pt is on 3L NC. gave pt call light in case he needs to use the bath room.
[2020-12-10 05:36] LABS: Lymphocytes # 0.3 K/mm3 (0.7-4.5); Monocytes # 0.2 K/mm3 (0.1-1.0); Platelet Count 87 K/mm3 (142-424)
[2020-12-10 05:38] LABS: Basophils % 0.4 % (0.1-2.0); Eosinophils % 0.3 % (0.1-12.0); Hematocrit 33.8 % (42.0-52.0); Lymphocytes % 4.5 % (10-50); Mean Corpuscular HGB Conc 32.5 g/dL (31.8-35.4); Mean Corpuscular Hemoglobin 30.2 pg (27.0-31.2); Mean Corpuscular Volume 92.7 fl (80-94); Mean Platelet Volume 9.3 fl (7.4-10.4); Monocytes % 3.8 % (1.7-9.3); Neutrophils # 5.6 K/mm3 (1.8-7.8); Red Blood Count 3.65 M/mm3 (4.60-6.20); Red Cell Distribution Width 16.8 % (11.5-17.5); White Blood Count 6.2 K/mm3 (4.8-10.8)
[2020-12-10 05:44] LABS: Chloride 96 mmol/L (98-107); Sodium 134 mmol/L (136-145)
[2020-12-10 05:45] LABS: Potassium 5.1 mmoL/L (3.5-5.1)
[2020-12-10 05:48] LABS: Anion Gap 13.1 mEq/L (5-15); Blood Urea Nitrogen 62 mg/dl (9-20); Calcium 8.6 mg/dl (8.4-10.2); Carbon Dioxide 30 mmol/L (22.0-30.0); Creatinine Clearance Estimated 32 mL/min (50-200); Estimated Glomerular Filt Rate 36 ml/min (>60); GFR (African American) 44 ML/MIN (>60)
[2020-12-10 05:50] LABS: Glucose 165 mg/dl (74-100)
--- NOTE | 2020-12-10 06:59 | PC.NURSE ---
PT ARRIVED TO FLOOR VIA STRETCHER FROM EDW/STAFF AT [id number]
--- NOTE | 2020-12-10 08:50 | HMH.HP ---
*Admission Date: 12/10/20 *Chief complaint: Shortness of breath with exertion *History of present illness: 80-year-old male with COPD and history of lung cancer treated earlier in the year presented to the emergency department with increasing shortness of breath on exertion. Patient had been diagnosed with COVID-19 pneumonia on December 06 through the office. Patient uses supplemental oxygen at night at 2 L/min. He came to the ER at the encouragement of his daughter who felt like he was more short of breath. Patient denies fevers, chest pain, chills. Cough is nonproductive. Patient did receive Regeneron injection subcutaneously in the office on December 08. Patient is unvaccinated against SARS-CoV-2 [facility] History I have reviewed the patient's past medical history: Yes Medical History: Reports:: Aneurysm, Chronic Obstructive Pulmonary Disease (COPD), Coronary Artery Disease, Hyperlipidemia, Hypertension, Lung Disease Denies:: Diabetes Mellitus Type 1, Diabetes Mellitus Type 2, Internal Pacemaker, Seizures *Have you ever received a pneumonia vaccine?: Yes *Have you received a flu vaccine this season?: Yes Other Medical History: Denies: Blood Transfusion Reaction Other Surgeries: Yes: Cardiac Catheterization, Colonoscopy, Colon Resection, EGD, Hernia Repair, Other. No: Pacemaker - *Social History Smoking Status: Current every day smoker Tobacco Type: cigarettes # Packs/Day (cigarettes): 1 Alcohol Intake: never Alcohol Intake Frequency:: a few times a week Substance Use Type: denies use *Occupational Status:: disabled Household Members: spouse *Travel in the last 8 weeks: None Family Hx:: No significant family history, Coronary Artery Disease Review of Systems - Constitutional Reports lack of energy, Denies anorexia, Denies body ache(s), Denies chills - Eyes Denies blurry vision, Denies loss of vision - ENT Denies difficulty swallowing - *Cardiovascular Reports shortness of breath with activity, Denies chest pain at rest - *Respiratory Reports chest congestion, Reports cough, Reports shortness of breath, Reports shortness of breath with activity, Denies change in phlegm color - *Gastrointestinal Denies abdominal pain - *Genitourinary Denies difficulty urinating - *Musculoskeletal Reports joint pain - Integumentary/Breasts Denies hair loss - *Neurologic Reports weakness, Denies dizziness, Denies localized weakness, Denies seizure-like activity Meds Home Medications Medication Instructions Recorded Confirmed Type aspirin 81 mg tablet,delayed 81 mg PO DAILY tab 05/15/17 12/10/20 History release omeprazole 20 mg capsule,delayed 20 mg PO DAILY 11/11/18 12/10/20 History release cyclobenzaprine 10 mg tablet 10 mg PO HSP PRN #30 tab 08/16/19 12/10/20 Rx albuterol sulfate 90 mcg/actuation 2 inh INHALATION Q4HP PRN #6.7 g 03/15/20 12/10/20 Rx aerosol inhaler ipratropium 0.5 mg-albuterol 3 mg 3 ml INHALATION Q6H PRN #180 ml 03/21/20 12/10/20 Rx (2.5 mg base)/3 mL nebulization soln metoprolol tartrate 100 mg tablet 100 mg PO BID #180 tab 05/15/20 12/10/20 Rx furosemide 20 mg tablet 20 mg PO DAILY #30 tab 07/11/20 12/10/20 Rx Amlodipine Besylate [Amlodipine See Rx Instructions .ROUTE .COMPLEX 12/10/20 12/10/20 History 10mg Tab] Atorvastatin Calcium [Lipitor 40mg See Rx Instructions .ROUTE .COMPLEX 12/10/20 12/10/20 History Tab] Allergies Allergy/AdvReac Type Severity Reaction Status Date / Time lisinopril Allergy Intermediate angioedema Verified 04/18/20 13:51 Exam Vital signs and Labs for Last 24 Hours: Temp Pulse Resp BP Pulse Ox 98.5 F 89 22 142/84 H 94 L 12/10/20 05:49 12/10/20 05:49 12/10/20 05:49 12/10/20 05:49 12/10/20 02:45 Laboratory Results - last 24 hr 12/10/20 01:22: WBC 6.5, RBC 3.95 L, Hgb 11.9 L, Hct 36.4 L, MCV 92.2, MCH 30.2, MCHC 32.8, RDW 16.7, Plt Count 167, MPV 8.6, Neut % (Auto) 90.9 H, Lymph % (Auto) 4.0 L, [place] % (Auto) 4.7, Eo
--- NOTE | 2020-12-10 13:55 | HMH.PHAVTE ---
[facility] Pharmacy VTE Monitoring - Patient Demographics Admission date: 12/10/20 Report Date: 12/10/20 Time: 13:55 Allergies/Adverse Reactions: Patient Allergies lisinopril Allergy (Intermediate, Verified 04/18/20 13:51) angioedema Height: 1.83 m Weight: 72.121 kg Patient Problems: Current Active Problems Acute exacerbation of chronic obstructive airways disease (Acute) COVID-19 with pulmonary comorbidity (Acute) Viral pneumonia (Acute) COVID-19 virus infection (Acute) Acute and chronic respiratory failure (Acute) Emphysema lung (Acute) Lung cancer (Acute) Stage 3b chronic kidney disease (Acute) RBBB (Chronic) COPD (chronic obstructive pulmonary disease) (Chronic) - VTE Risk Labs: VTE Related Lab Results Hgb 11.0 g/dL (14.1-18.0) L 12/10/20 04:05 Hct 33.8 % (42.0-52.0) L 12/10/20 04:05 Plt Count 87 K/mm3 (142-424) L D 12/10/20 04:05 BUN 62 mg/dl (9-20) H 12/10/20 04:05 Creatinine 1.80 mg/dl (0.66-1.25) H 12/10/20 04:05 Estimated Creat Clear 32 mL/min (50-200) 12/10/20 04:05 - Prophylaxis Types of VTE Prophylaxis: TEDS Knee High, Pharmacological (MIL HOSE AND LOVENOX ORDERED) Location of Applied Device: Not Applicable
[2020-12-11] VITALS (7 sets, daily range): BP systolic 154–180; BP diastolic 84–111; PULSE 69–86; RESP 20–24; TEMP 36.5–36.9; O2SAT 87–98; BMI 21.4
--- NOTE | 2020-12-11 03:27 | PC.NURSE ---
Patient had uneventful night has remained on 4L nasal canula and tolerated well with 02 sats between 91-94%. He is a&o x4. Has had no c/o pain t/o the night. He reports feeling SOA on exertion . This nurse instructed patient to use call greco for assistance with transfers due to him feeling SOA. Call greco within reach, will continue to monitor.
--- NOTE | 2020-12-11 04:46 | PC.NURSE ---
Paged Dr. Grover at 0420 due to elevated blood pressure at 180/100. Gave order to administer captopril 6.25mg PO if systolic greater than 190. Will continue to monitor.
--- NOTE | 2020-12-11 06:56 | HMH.ACPN2 ---
Internal Medicine - PN: Subj *Date: 12/11/20 *Time: 06:56 Interval history: Patient reports dyspnea with light exertion such as standing at bedside to use a bedside urinal. Nursing staff confirms this. Patient did require increase in oxygen liter flow to 4 L/min. Patient did have elevated blood pressure overnight Exam Vital signs and Labs for Last 24 Hours: Temp Pulse Resp BP Pulse Ox 97.8 F 83 20 180/100 H 94 L 12/11/20 04:00 12/11/20 04:00 12/11/20 04:00 12/11/20 04:00 12/11/20 04:00 I & O for Last 24 hours: Intake & Output 12/08/20 12/09/20 12/10/20 12/11/20 11:59 11:59 11:59 11:59 Intake Total 120 / 120 120 / 120 Output Total 225 / 225 425 / 425 Balance -105 / -105 -305 / -305 Weight 159 lb 158 lb 11.725 oz Narrative: Patient looks comfortable sitting up in bed. No increased work of breathing. Lungs have distant breath sounds with some rales heard in the right upper lobe. Heart has a regular rate and rhythm. Abdomen is thin. Lower extremities have no edema Assessment and Plan (1) Viral pneumonia Status: Acute Category: Medical Code(s): J12.9 - Viral pneumonia, unspecified (2) COVID-19 virus infection Status: Acute Category: Medical Code(s): U07.1 - COVID-19 (3) Acute and chronic respiratory failure Status: Acute Category: Medical Code(s): J96.20 - Acute and chronic respiratory failure, unspecified whether with hypoxia or hypercapnia (4) Emphysema lung Status: Acute Category: Medical Code(s): J43.9 - Emphysema, unspecified (5) Lung cancer Status: Acute Category: Medical Code(s): C34.90 - Malignant neoplasm of unspecified part of unspecified bronchus or lung (6) KARMA (acute kidney injury) Status: Resolved Category: Medical Code(s): N17.9 - Acute kidney failure, unspecified (7) Stage 3b chronic kidney disease Status: Acute Category: Medical Code(s): N18.32 - Chronic kidney disease, stage 3b (8) Essential hypertension Status: Acute Category: Medical Code(s): I10 - Essential (primary) hypertension - Assessment and plan all Dx Assessment and Plan for all problems:: 1. Initiate Remdesivir in addition to dexamethasone and nutritional supplements 2. Monitor for increasing oxygen requirement 3. Add irbesartan 75 mg for better blood pressure control 4. Discontinue IV fluids
[2020-12-11 07:26] LABS: Basophils % 0.1 % (0.1-2.0); Hematocrit 36.4 % (42.0-52.0); Hemoglobin 11.7 g/dL (14.1-18.0); Lymphocytes # 0.5 K/mm3 (0.7-4.5); Lymphocytes % 5.4 % (10-50); Mean Corpuscular Hemoglobin 29.9 pg (27.0-31.2); Mean Corpuscular Volume 93.3 fl (80-94); Mean Platelet Volume 8.5 fl (7.4-10.4); Monocytes # 0.6 K/mm3 (0.1-1.0); Monocytes % 7.1 % (1.7-9.3); Neutrophils # 7.5 K/mm3 (1.8-7.8); Neutrophils % 87.3 % (37.0-80.0); Platelet Count 188 K/mm3 (142-424); Red Cell Distribution Width 16.8 % (11.5-17.5); White Blood Count 8.6 K/mm3 (4.8-10.8)
[2020-12-11 07:41] LABS: MANUAL DIFFERENTIAL MANUAL DIFFERENTIAL (MANUAL DIFF)
[2020-12-11 08:12] LABS: Anisocytosis 1+; Hypochromasia 2+; Lymphocytes % 5 % (10-50); Macrocytosis 1+; Monocytes % 6 % (2-9); Neutrophils % 89 % (42-76); Platelet Estimate Normal; Total Cells Counted 100
[2020-12-11 14:45] LABS: Anion Gap 11.4 mEq/L (5-15); Blood Urea Nitrogen 50 mg/dl (9-20); Calcium 8.5 mg/dl (8.4-10.2); Carbon Dioxide 30 mmol/L (22.0-30.0); Chloride 97 mmol/L (98-107); Creatinine Clearance Estimated 48 mL/min (50-200); Estimated Glomerular Filt Rate 58 ml/min (>60); GFR (African American) 70 ML/MIN (>60); Glucose 134 mg/dl (74-100); Potassium 4.4 mmoL/L (3.5-5.1); Sodium 134 mmol/L (136-145)
--- NOTE | 2020-12-11 19:28 | PC.NURSE ---
patient remained on 4L nasal cannula, unable to tolerate weaning of oxygen. Patient ambulated within the room q4 as tolerated and walked back and forth from the bathroom. Patient continues to have anxiety and complains of SOA despite spo2 remaining in low 90's upon assessment. PRN inhaler administered to aid in breathing. Fluids were discontinued today. No complaints of pain throughout shift
[2020-12-12] VITALS: BP 152/89; PULSE 72; RESP 16; TEMP 36.6; O2SAT 96
--- NOTE | 2020-12-12 03:08 | PC.NURSE ---
No acute changes t/o shift. Pt is A/O x4. Pt remains on 4L NC with O2 stats >90%. Pt c/o of nausea x1 this shift, admin meds per MAr with relief. Pt uses the urinal independently. VSS, call light within reach, will continue to monitor.
[2020-12-12 04:00] VITALS: BP 156/87; PULSE 68; RESP 20; TEMP 36.6; O2SAT 91
[2020-12-12 04:54] VITALS: BMI 17.4
--- NOTE | 2020-12-12 06:52 | HMH.ACPN2 ---
Internal Medicine - PN: Subj *Date: 12/12/20 *Time: 06:52 Interval history: Patient has no complaints this morning. He claims to feel better than he did even prior to delores his viral pneumonia. Patient had a transient decrease in O2 sats yesterday afternoon that required temporary increase in flow to 6 L/min via nasal cannula. He has since been weaned back to 4 L. Exam Vital signs and Labs for Last 24 Hours: Temp Pulse Resp BP Pulse Ox 97.8 F 68 20 156/87 H 91 L 12/12/20 04:00 12/12/20 04:00 12/12/20 04:00 12/12/20 04:00 12/12/20 04:00 Laboratory Results - last 24 hr 12/11/20 07:00: WBC 8.6 D, RBC 3.90 L, Hgb 11.7 L, Hct 36.4 L, MCV 93.3, MCH 29.9, MCHC 32.0, RDW 16.8, Plt Count 188 D, MPV 8.5, Neut % (Auto) 87.3 H, Lymph % (Auto) 5.4 L, [place] % (Auto) 7.1, Eos % (Auto) 0.0 L, Baso % (Auto) 0.1, Neut # (Auto) 7.5, Lymph # (Auto) 0.5 L, [place] # (Auto) 0.6, Eos # (Auto) 0.0, Baso # (Auto) 0.0, Total Counted 100, Neutrophils % (Manual) 89 H, Lymphocytes % (Manual) 5 L, Monocytes % (Manual) 6, Platelet Estimate Normal, Hypochromasia 2+, Anisocytosis 1+, Macrocytosis 1+ 12/11/20 07:00: Sodium 134 L, Potassium 4.4, Chloride 97 L, Carbon Dioxide 30, Anion Gap 11.4, BUN 50 H, Creatinine 1.20 D, Estimated Creat Clear 48, Estimated GFR 58 L, Est GFR ( Amer) 70 D, Glucose 134 H, Calcium 8.5 I & O for Last 24 hours: Intake & Output 12/09/20 12/10/20 12/11/20 12/12/20 11:59 11:59 11:59 11:59 Intake Total 120 / 120 600 / 600 480 / 480 Output Total 225 / 225 425 / 425 550 / 550 Balance -105 / -105 175 / 175 -70 / -70 Weight 159 lb 158 lb 11.725 oz 128 lb 8 oz Narrative: Patient looks comfortable sitting up in bed. I applied pulse oximeter to the left index finger with readings of 86 to 89% on 4 L/min of oxygen via nasal cannula. The same pulse oximeter was applied to his left ring finger with f O2 sat of 91%. Lungs have rales in the upper lobes posteriorly and bilaterally. Heart has a regular rate and rhythm. Abdomen is soft. Lower extremities have no edema. Assessment and Plan (1) Viral pneumonia Status: Acute Category: Medical Code(s): J12.9 - Viral pneumonia, unspecified (2) COVID-19 virus infection Status: Acute Category: Medical Code(s): U07.1 - COVID-19 (3) Acute and chronic respiratory failure Status: Acute Category: Medical Code(s): J96.20 - Acute and chronic respiratory failure, unspecified whether with hypoxia or hypercapnia (4) Emphysema lung Status: Acute Category: Medical Code(s): J43.9 - Emphysema, unspecified (5) Lung cancer Status: Acute Category: Medical Code(s): C34.90 - Malignant neoplasm of unspecified part of unspecified bronchus or lung (6) KARMA (acute kidney injury) Status: Resolved Category: Medical Code(s): N17.9 - Acute kidney failure, unspecified (7) Stage 3b chronic kidney disease Status: Acute Category: Medical Code(s): N18.32 - Chronic kidney disease, stage 3b (8) Essential hypertension Status: Acute Category: Medical Code(s): I10 - Essential (primary) hypertension - Assessment and plan all Dx Assessment and Plan for all problems:: Patient is stable. He has increased oxygen requirement compared to home where he only uses oxygen at night and has had some transient increased requirements via nasal cannula during the afternoon yesterday. Patient will remain hospitalized for close monitoring. He is greatly disappointed by this as he feels like he is well enough to go home. If patient's O2 sats can remain stable without need for increased oxygen over the next 24 hours would consider discharge. Patient will continue Remdesivir, dexamethasone.
[2020-12-12 07:45] LABS: Basophils % 0.4 % (0.1-2.0); Hemoglobin 12.2 g/dL (14.1-18.0); Lymphocytes # 0.6 K/mm3 (0.7-4.5); Lymphocytes % 7.3 % (10-50); Mean Corpuscular HGB Conc 32.1 g/dL (31.8-35.4); Mean Corpuscular Hemoglobin 29.9 pg (27.0-31.2); Mean Corpuscular Volume 93.1 fl (80-94); Mean Platelet Volume 8.5 fl (7.4-10.4); Monocytes # 0.6 K/mm3 (0.1-1.0); Monocytes % 7.5 % (1.7-9.3); Neutrophils % 84.7 % (37.0-80.0); Platelet Count 241 K/mm3 (142-424); Red Blood Count 4.08 M/mm3 (4.60-6.20); Red Cell Distribution Width 16.7 % (11.5-17.5); White Blood Count 8.2 K/mm3 (4.8-10.8)
[2020-12-12 07:57] LABS: Albumin Level 3.1 g/dl (3.5-5.0); Alkaline Phosphatase 85 U/L (38-126); Bilirubin,Unconjugated 0.4 mg/dL (0.0-1.1); Blood Urea Nitrogen 45 mg/dl (9-20); Calcium 8.8 mg/dl (8.4-10.2); Carbon Dioxide 33 mmol/L (22.0-30.0); Creatinine Clearance Estimated 47 mL/min (50-200); Estimated Glomerular Filt Rate 72 ml/min (>60); GFR (African American) 87 ML/MIN (>60); Glucose 122 mg/dl (74-100); Potassium 4.9 mmoL/L (3.5-5.1); Sodium 136 mmol/L (136-145)
[2020-12-12 08:00] VITALS: BP 152/84; PULSE 77; RESP 16; TEMP 36.6; O2SAT 94
[2020-12-12 08:04] LABS: Alanine Aminotransferase 24 U/L (12-78); Aspartate Amino Transferase 39 U/L (17-59); Bilirubin,Direct 0.1 mg/dl (0.0-0.4); Bilirubin,Indirect 0.4 mg/dL (0.0-0.9); Bilirubin,Total 0.5 mg/dl (0.2-1.3); Total Protein,Serum 6.6 g/dl (6.3-8.2)
[2020-12-12 08:07] LABS: Anion Gap 9.9 mEq/L (5-15); Chloride 98 mmol/L (98-107)
[2020-12-12 11:55] VITALS: BP 138/89; PULSE 66; RESP 18; TEMP 36.5; O2SAT 92
[2020-12-12 16:00] VITALS: BP 133/78; PULSE 70; RESP 18; TEMP 36.6; O2SAT 95
[2020-12-12 20:00] VITALS: BP 130/76; PULSE 77; RESP 18; TEMP 36.6; O2SAT 95
--- NOTE | 2020-12-12 23:20 | PC.NURSE ---
LATE ENTRY Pt has been extremely anxious this shift, but easily redirected. Pt has been up to the chair most of this shift. Pt has been between 3.5 and 4 L NC this shift w/ o2 sats >94%. No other acute changes or complaints, will continue to monitor.
[2020-12-13] VITALS: BP 160/86; PULSE 67; RESP 18; TEMP 36.6; O2SAT 90
[2020-12-13 04:00] VITALS: BP 136/81; PULSE 82; RESP 18; TEMP 36.6; O2SAT 90
[2020-12-13 05:00] VITALS: BMI 17.3
--- NOTE | 2020-12-13 07:21 | HMH.DCSUM ---
General - General Admission date:: 12/11/20 Discharge date: 12/13/20 HPI HPI: 80-year-old male with COPD and history of lung cancer treated earlier in the year presented to the emergency department with increasing shortness of breath on exertion. Patient had been diagnosed with COVID-19 pneumonia on December 06 through the office. Patient uses supplemental oxygen at night at 2 L/min. He came to the ER at the encouragement of his daughter who felt like he was more short of breath. Patient denies fevers, chest pain, chills. Cough is nonproductive. Patient did receive Regeneron injection subcutaneously in the office on December 08. Patient is unvaccinated against SARS-CoV-2 Hospital Course Hospital Course: Patient was admitted and placed on dexamethasone, Remdesivir for COVID-19 pneumonia with mild acute respiratory failure requiring increase in supplemental oxygen. Patient was using oxygen at night previously and required oxygen use during the day. Initially patient was requiring 3 L but this soon escalated to 4 L. Patient remained stable on 4 L via nasal cannula for 48 hours maintaining O2 sats in the low 90s. By the day of discharge patient reported he was back to baseline. Patient was discharged home. It was emphasized to the patient that he needs to avoid cigarettes when he returns home. He will continue supplemental oxygen 24 hours a day at 4 L/min via nasal cannula. O2 sat should stay above 88%. Objective Vital signs: Temp Pulse Resp BP Pulse Ox 98 F 82 18 136/81 90 L 12/13/20 04:00 12/13/20 04:00 12/13/20 04:00 12/13/20 04:00 12/13/20 04:00 no acute distress - *Routine Respiratory Exam Present: distant breath sounds - *Routine Cardiovascular Exam Present: RRR Results Labs on day of discharge: Labs from last 24 hours 12/12/20 12/12/20 12/12/20 07:18 07:18 07:18 WBC 8.2 RBC 4.08 L Hgb 12.2 L Hct 38.0 L MCV 93.1 MCH 29.9 MCHC 32.1 RDW 16.7 Plt Count 241 D MPV 8.5 Neut % (Auto) 84.7 H Lymph % (Auto) 7.3 L [place] % (Auto) 7.5 Eos % (Auto) 0.0 L Baso % (Auto) 0.4 Neut # (Auto) 7.0 Lymph # (Auto) 0.6 L [place] # (Auto) 0.6 Eos # (Auto) 0.0 Baso # (Auto) 0.0 Sodium 136 Potassium 4.9 Chloride 98 Carbon Dioxide 33 H Anion Gap 9.9 BUN 45 H Creatinine 1.00 Estimated Creat Clear 47 Estimated GFR 72 Est GFR ( Amer) 87 D Glucose 122 H Calcium 8.8 Total Bilirubin 0.5 Direct Bilirubin 0.1 Conjugated Bilirubin 0.0 Indirect Bilirubin 0.4 Unconjugated Bilirubin 0.4 AST 39 ALT 24 Alkaline Phosphatase 85 Total Protein 6.6 Albumin 3.1 L DS: Diagnosis - Discharge Diagnosis (1) Viral pneumonia Status: Acute (2) COVID-19 virus infection Status: Acute (3) Acute and chronic respiratory failure Status: Resolved (4) Emphysema lung Status: Acute (5) Lung cancer Status: Acute (6) KARMA (acute kidney injury) Status: Resolved (7) Stage 3b chronic kidney disease Status: Acute (8) Essential hypertension Status: Acute Discharge Plan - Patient Discharge Instructions ACTIVITY: Continue current activity DIET: continue same diet Patient Instructions: Chronic Obstructive Pulmonary Disease, DI for Chronic Obstructive Pulmonary Disease, Acute Kidney Injury, DI for COVID-19 (Suspected or Confirmed ) - Follow up Plan Follow up with: Karthik George MD [Staff Physician] - Disposition: Home, Self-Care Condition at discharge:: Stable Home Medications: Home Medications Medication Instructions Recorded Confirmed Type aspirin 81 mg tablet,delayed 81 mg PO DAILY tab 05/15/17 12/10/20 History release omeprazole 20 mg capsule,delayed 20 mg PO DAILY 11/11/18 12/10/20 History release cyclobenzaprine 10 mg tablet 10 mg PO HSP PRN #30 tab 08/16/19 12/10/20 Rx albuterol sulfate 90 mcg/actuation 2
[2020-12-13 07:37] LABS: Basophils % 0.3 % (0.1-2.0); Hematocrit 37.8 % (42.0-52.0); Lymphocytes # 0.8 K/mm3 (0.7-4.5); Lymphocytes % 8.9 % (10-50); Mean Corpuscular HGB Conc 31.7 g/dL (31.8-35.4); Mean Corpuscular Hemoglobin 29.2 pg (27.0-31.2); Mean Platelet Volume 8.2 fl (7.4-10.4); Monocytes # 0.8 K/mm3 (0.1-1.0); Monocytes % 9.3 % (1.7-9.3); Neutrophils # 7.2 K/mm3 (1.8-7.8); Neutrophils % 81.5 % (37.0-80.0); Platelet Count 272 K/mm3 (142-424); Red Blood Count 4.11 M/mm3 (4.60-6.20); White Blood Count 8.9 K/mm3 (4.8-10.8)
[2020-12-13 07:40] LABS: Alanine Aminotransferase 24 U/L (12-78); Albumin Level 3.1 g/dl (3.5-5.0); Alkaline Phosphatase 84 U/L (38-126); Aspartate Amino Transferase 37 U/L (17-59); Bilirubin,Direct 0.1 mg/dl (0.0-0.4); Bilirubin,Indirect 0.6 mg/dL (0.0-0.9); Bilirubin,Total 0.7 mg/dl (0.2-1.3); Bilirubin,Unconjugated 0.5 mg/dL (0.0-1.1); Total Protein,Serum 6.6 g/dl (6.3-8.2)
[2020-12-13 07:41] LABS: Anion Gap 8.9 mEq/L (5-15); Blood Urea Nitrogen 49 mg/dl (9-20); Calcium 8.8 mg/dl (8.4-10.2); Carbon Dioxide 33 mmol/L (22.0-30.0); Chloride 97 mmol/L (98-107); Creatinine Clearance Estimated 43 mL/min (50-200); Estimated Glomerular Filt Rate 64 ml/min (>60); GFR (African American) 78 ML/MIN (>60); Glucose 111 mg/dl (74-100); Potassium 4.9 mmoL/L (3.5-5.1); Sodium 134 mmol/L (136-145)
[2020-12-13 08:00] VITALS: BP 143/103; PULSE 87; RESP 18; TEMP 36.6; O2SAT 92
[2020-12-13 08:54] VITALS: BP 141/91; PULSE 83
[2020-12-13 09:00] VITALS: O2SAT 94
--- NOTE | 2020-12-13 10:19 | PC.NURSE ---
Pt states he is going to take meds when he gets home. D/Cd at 1015. Pt does wear home 02 and daughter informed to bring 02 when transferring pt home.
--- NOTE | 2020-12-13 10:36 | SW/DCPLANNER ---
DR WITT ORDERED PATIENT TO HAVE A CONCENTRATOR THAT COULD ACCOMMODATE UP TO 10 LITERS OF 02 THIS IS TO BE DELIVERED IN CASE PATIENT HAS TO BUMP HIS 02 UP. PATIENT IS ALREADY ESTABLISHED WITH [facility] AND I SENT ORDERS...PATIENT DISCHARGED TO HOME TODAY AND WILL FOLLOW UP WITH DR WITT IN THE NEXT WEEK..
== END 2020-12-13 10:15 | disposition home or self-care (01) | DRG 177 ==
LOC: ER 02:32 → 2ND 05:15
PROVIDERS: Admitting Provider Internal Medicine Adolescent Medicine; Emergency Provider Emergency Medicine; PCP Nurse Practitioner Family; Visit Provider Family Medicine
DX: U07.1 COVID-19 (principal); J12.82 Pneumonia due to coronavirus disease 2019; J96.20 Acute and chronic respiratory failure, unspecified whether with hypoxia or hypercapnia; C34.90 Malignant neoplasm of unspecified part of unspecified bronchus or lung; N17.9 Acute kidney failure, unspecified; F17.210 Nicotine dependence, cigarettes, uncomplicated; N18.30 Chronic kidney disease, stage 3 unspecified; I12.9 Hypertensive chronic kidney disease with stage 1 through stage 4 chronic kidney disease, or unspecified chronic kidney disease; E78.5 Hyperlipidemia, unspecified; Z99.81 Dependence on supplemental oxygen; J43.9 Emphysema, unspecified; N18.32 Chronic kidney disease, stage 3b
CPT/HCPCS: 36415; 71045; 80048; 80053; 80076; 83735; 84145; 84484; 85007; 85025; 85651; 86140; 93005; 94760; 94761; 96365; 96375; 99284; C9803; G0378; J2405; U0003; U0005

== ENCOUNTER → 2021-01-08 07:19 | Outpatient (CLI) | payer MEDICARE, OTHER, SELFPAY ==
--- NOTE | 2021-01-08 07:19 | US_ITS ---
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 On color Doppler the aortic endograft appears patent. On color Doppler there is no definite evidence of endoleak however the study is nondiagnostic due to the patient's size. IMPRESSION: Patent aortic endograft. Study is nondiagnostic for endoleak due to the patient's size. Dictated by: Ariadna Gilliam MD 01/10/2021 08:33 Ariadna Gilliam MD in [place] 01/10/2021 08:33
== END ==
PROVIDERS: PCP Nurse Practitioner Family; Visit Provider Physician Assistant
DX: I71.4 Abdominal aortic aneurysm, without rupture (principal)
CPT/HCPCS: 76770

== ENCOUNTER → 2021-04-30 14:25 | Outpatient (CLI) | payer MEDICARE, OTHER, SELFPAY | PROVIDERS: PCP Family Medicine; Visit Provider Physician Assistant | DX: E78.2 Mixed hyperlipidemia (principal); F17.200 Nicotine dependence, unspecified, uncomplicated; I11.9 Hypertensive heart disease without heart failure; I25.10 Atherosclerotic heart disease of native coronary artery without angina pectoris; I45.10 Unspecified right bundle-branch block; I70.1 Atherosclerosis of renal artery; I71.4 Abdominal aortic aneurysm, without rupture; I73.9 Peripheral vascular disease, unspecified; J44.9 Chronic obstructive pulmonary disease, unspecified; N28.9 Disorder of kidney and ureter, unspecified; R05.9 Cough, unspecified; R06.09 Other forms of dyspnea; R42 Dizziness and giddiness; R55 Syncope and collapse; R60.9 Edema, unspecified | CPT/HCPCS: 93270 ==

== ENCOUNTER → 2021-06-02 12:45 | Outpatient (CLI) | payer MEDICARE, OTHER, SELFPAY ==
[2021-06-02 13:10] LABS: Basophils # 0.1 K/mm3 (0-0.2); Eosinophils # 0.2 K/mm3 (0.0-0.4); Eosinophils % 2.6 % (0.1-12.0); Hematocrit 34.9 % (42.0-52.0); Hemoglobin 10.8 g/dL (14.1-18.0); Lymphocytes # 1.4 K/mm3 (0.7-4.5); Lymphocytes % 20.5 % (10-50); Mean Corpuscular HGB Conc 31.1 g/dL (31.8-35.4); Mean Corpuscular Hemoglobin 28.8 pg (27.0-31.2); Mean Corpuscular Volume 92.8 fl (80-94); Mean Platelet Volume 9.5 fl (7.4-10.4); Monocytes # 0.4 K/mm3 (0.1-1.0); Monocytes % 5.6 % (1.7-9.3); Neutrophils # 4.9 K/mm3 (1.8-7.8); Neutrophils % 70.3 % (37.0-80.0); Platelet Count 224 K/mm3 (142-424); Red Blood Count 3.76 M/mm3 (4.60-6.20); Red Cell Distribution Width 16.2 % (11.5-17.5)
[2021-06-02 14:35] LABS: Alanine Aminotransferase 12 U/L (12-78); Alkaline Phosphatase 112 U/L (38-126); Anion Gap 8.6 mEq/L (5-15); Aspartate Amino Transferase 23 U/L (17-59); Bilirubin,Direct 0.2 mg/dl (0.0-0.4); Bilirubin,Indirect 0.7 mg/dL (0.0-0.9); Bilirubin,Total 0.9 mg/dl (0.2-1.3); Bilirubin,Unconjugated 0.8 mg/dL (0.0-1.1); Blood Urea Nitrogen 32 mg/dl (9-20); Calcium 9.5 mg/dl (8.4-10.2); Carbon Dioxide 38 mmol/L (22.0-30.0); Chloride 96 mmol/L (98-107); Chol/HDL Ratio 2.1 (1-3.5); Cholesterol 174 mg/dl (140-200); Estimated Glomerular Filt Rate 32 ml/min (>60); GFR (African American) 39 ML/MIN (>60); Glucose 108 mg/dl (74-100); HDL Cholesterol 84 mg/dl (40-60); Potassium 4.6 mmoL/L (3.5-5.1); Sodium 138 mmol/L (136-145); Total Protein,Serum 7.4 g/dl (6.3-8.2); Triglycerides 85 mg/dl (30-150); VLDL Cholesterol 17 mg/dL (0-40)
[2021-06-02 14:46] LABS: Direct LDL Cholesterol 55.21 mg/dL (100-129)
[2021-06-02 14:52] LABS: Free T4 (Free Thyroxine) 1.35 ng/dl (0.78-2.19)
[2021-06-02 15:06] LABS: Thyroid Stimulating Hormone 2.45 uIU/mL (0.465-4.68)
== END ==
PROVIDERS: PCP Family Medicine; Visit Provider Physician Assistant
DX: E78.2 Mixed hyperlipidemia (principal); F17.200 Nicotine dependence, unspecified, uncomplicated; I11.9 Hypertensive heart disease without heart failure; I20.9 Angina pectoris, unspecified; I70.1 Atherosclerosis of renal artery; I71.4 Abdominal aortic aneurysm, without rupture; I73.9 Peripheral vascular disease, unspecified; R06.00 Dyspnea, unspecified; Z01.812 Encounter for preprocedural laboratory examination; Z11.52 Encounter for screening for COVID-19
CPT/HCPCS: 36415; 80048; 80061; 80076; 84439; 84443; 85025; C9803; U0003; U0005

== ENCOUNTER 2021-06-04 08:45 | Day surgery (SDC) | payer MEDICARE, OTHER, SELFPAY ==
[2021-06-04] VITALS (15 sets, daily range): BP systolic 172–217; BP diastolic 86–119; PULSE 56–80; RESP 17–19; TEMP 36.9; O2SAT 90–97; BMI 21.6
--- NOTE | 2021-06-04 | IR_ITS ---
APPROVED REPORT Patient Location: Outpatient Network Admin: DERECK Sevilla RT (R) PROCEDURES Left heart catheterization Left ventriculogram Selective coronary angiogram Drug-eluting stent deployment to the proximal mid and distal large circumflex artery INDICATION Coronary artery disease, Syncope, Informed consent was obtained prior to the procedure. COMPLICATIONS None Estimated Blood Loss: Less than 10 mls TECHNIQUE One percent lidocaine used to anesthetize the right anterior aspect of the wrist. The right radial artery was accessed via the Seldinger technique. A 6 [place] sheath was placed in the right radial artery. 2.5 mg of verapamil, 800 mcg of nitroglycerin, 1mg Lidocaine and 5000 U Heparin were given through the arterial sheath. The papa catheter was also used to perform left heart catheterization, left ventriculogram and selective coronary angiogram. At the end the diagnostic angiogram therapeutic heparin was administered giving a therapeutic ACT and the guide catheter was left in the left main artery followed by a Choice PT extra-support wire placed distally in the circumflex artery. A 3 mm x 38 mm Xience drug-eluting stent was deployed at 24 saima reducing the stenosis to 0%. A guide liner was then advanced and an additional 2.75 x 38 mm Xience drug-eluting stent was deployed at 24 saima distal to the first stent yet still overlapping it. The balloon was brought back and deployed at 28 saima to mesh the 2 stents. ZACHARY-3 flow was present before and after the procedure. After achieving excellent angiographic results the apparatus was removed the sheath was removed and hemostasis was achieved using TR banding patient was transferred to the postop already in stable condition ANGIOGRAPHIC RESULTS The left main artery Has a distal calcified 30% stenosis The left anterior descending artery Has proximal 10 to 20% stenoses with mid vessel 50-60% stenosis followed by a concentric 80 to 90% stenosis The circumflex artery Is a large codominant vessel with proximal 10 to 20% stenoses mid vessel calcified 40% stenosis followed by an additional 90% and then 80% stenosis in the large second obtuse marginal artery. The first obtuse marginal artery has proximal 40% calcified stenosis with additional 30 and 40% mid vessel stenosis The right coronary artery Is codominant and has long mid vessel calcified 30% stenosis with a distal 30% stenosis The PEREZ ventriculogram reveals Not performed The left ventricular end-diastolic pressure Not measured IMPRESSION Severe to critical disease in a large codominant circumflex artery with successful percutaneous revascularization reducing the stenosis to 0% with 2 contiguous drug-eluting stents Persistent moderate to severe stenosis in the mid LAD as described above Suspected renal artery stenosis based on abnormal creatinine hypertension and history of abnormal renal duplex PLAN 1. Dual antiplatelet therapy 2. Control of hypertension 3. In 2 weeks patient will be brought back to the Product Strategy Director will undergo stenting of the mid LAD via the right groin. At that time bilateral renal angiography will be performed. The patient's height and brachiocephalic tortuosity and large abdominal aortic aneurysm history makes radial access for the renal arteries difficult if not impossible 4. Cardiac rehabilitation following stenting of the LAD 5. LDL less than 55 to be achieved with high intensity statin 6. Cardiac rehabilitation Electronically signed by : Tj Day MD 06/04/2021 10:56:41
[2021-06-04 09:47] LABS: Anion Gap 6.9 mEq/L (5-15); Blood Urea Nitrogen 31 mg/dl (9-20); Calcium 9.5 mg/dl (8.4-10.2); Carbon Dioxide 36 mmol/L (22.0-30.0); Chloride 99 mmol/L (98-107); Creatinine Clearance Estimated 36 mL/min (50-200); Estimated Glomerular Filt Rate 41 ml/min (>60); GFR (African American) 50 ML/MIN (>60); Glucose 103 mg/dl (74-100); Potassium 4.9 mmoL/L (3.5-5.1); Sodium 137 mmol/L (136-145)
--- NOTE | 2021-06-04 14:31 | PC.NURSE ---
MD AWARE OF BP, SEE MAR FOR ORDER FOR MED OR BP
--- NOTE | 2021-06-04 14:40 | HMH.PHACLD ---
Timothy Rivera has received discharge medication counseling on the following medications: ASPIRIN ATORVASTATIN METOPROLOL BRILINTA (NEW) PATIENT HAS ALLERGY TO ACEI/ARB. PRESCRIPTION FOR BRILINTA DROPPED OFF BY CLINIC PHARMACY. PATIENT VERBALIZED UNDERSTANDING AND ALL QUESTIONS WERE ANSWERED. -LIUDMILA WILLIAM, PHARMD
[2021-06-04 14:45] LABS: CATHL Activated Clotting Time 293 SEC (74-125)
== END 2021-06-04 15:09 | disposition home or self-care (01) ==
LOC: CATHLAB 08:47
PROVIDERS: PCP Family Medicine; Visit Provider Internal Medicine
DX: I25.118 Atherosclerotic heart disease of native coronary artery with other forms of angina pectoris (principal); Z79.899 Other long term (current) drug therapy; I71.4 Abdominal aortic aneurysm, without rupture; I70.1 Atherosclerosis of renal artery; F17.210 Nicotine dependence, cigarettes, uncomplicated; I11.9 Hypertensive heart disease without heart failure; J44.9 Chronic obstructive pulmonary disease, unspecified; Z95.828 Presence of other vascular implants and grafts; R55 Syncope and collapse
CPT/HCPCS: 80048; 85347; 92928; 93458; 99152; 99153; C1725; C1769; C1875; C9600; J1644; Q9967

== ENCOUNTER → 2021-06-18 14:05 | Outpatient (CLI) | payer MEDICARE, OTHER, SELFPAY ==
[2021-06-18 15:01] LABS: Basophils % 0.6 % (0.1-2.0); Eosinophils # 0.2 K/mm3 (0.0-0.4); Eosinophils % 2.8 % (0.1-12.0); Hematocrit 32.9 % (42.0-52.0); Hemoglobin 10.6 g/dL (14.1-18.0); Lymphocytes # 1.4 K/mm3 (0.7-4.5); Lymphocytes % 19.6 % (10-50); Mean Corpuscular HGB Conc 32.3 g/dL (31.8-35.4); Mean Corpuscular Hemoglobin 29.5 pg (27.0-31.2); Mean Corpuscular Volume 91.3 fl (80-94); Mean Platelet Volume 7.8 fl (7.4-10.4); Monocytes # 0.5 K/mm3 (0.1-1.0); Monocytes % 6.7 % (1.7-9.3); Neutrophils # 5.1 K/mm3 (1.8-7.8); Neutrophils % 70.4 % (37.0-80.0); Platelet Count 215 K/mm3 (142-424); Red Cell Distribution Width 16.5 % (11.5-17.5); White Blood Count 7.2 K/mm3 (4.8-10.8)
[2021-06-18 15:52] LABS: Anion Gap 12.4 mEq/L (5-15); Blood Urea Nitrogen 41 mg/dl (9-20); Calcium 9.5 mg/dl (8.4-10.2); Carbon Dioxide 33 mmol/L (22.0-30.0); Chloride 100 mmol/L (98-107); Estimated Glomerular Filt Rate 34 ml/min (>60); GFR (African American) 41 ML/MIN (>60); Glucose 108 mg/dl (74-100); Potassium 5.4 mmoL/L (3.5-5.1); Sodium 140 mmol/L (136-145)
== END ==
PROVIDERS: Physician Assistant; Visit Provider Internal Medicine
DX: E78.2 Mixed hyperlipidemia (principal); F17.200 Nicotine dependence, unspecified, uncomplicated; I11.9 Hypertensive heart disease without heart failure; I25.10 Atherosclerotic heart disease of native coronary artery without angina pectoris; I45.10 Unspecified right bundle-branch block; I70.1 Atherosclerosis of renal artery; I71.4 Abdominal aortic aneurysm, without rupture; I73.9 Peripheral vascular disease, unspecified; J44.9 Chronic obstructive pulmonary disease, unspecified; N28.9 Disorder of kidney and ureter, unspecified; R06.09 Other forms of dyspnea; Z01.812 Encounter for preprocedural laboratory examination; Z11.52 Encounter for screening for COVID-19
CPT/HCPCS: 36415; 80048; 85025; C9803; U0003; U0005

== ENCOUNTER 2021-06-19 12:14 | Inpatient (IN) | payer MEDICARE, OTHER, SELFPAY ==
[2021-06-19] VITALS (35 sets, daily range): BP systolic 70–160; BP diastolic 49–84; PULSE 54–102; RESP 16–18; TEMP 33.2–36.9; O2SAT 92–100; BMI 20.9; BMI 23.2
--- NOTE | 2021-06-19 | CA_ITS ---
APPROVED REPORT EXAM: Comprehensive 2D, Doppler, and color-flow Echocardiogram Senior Sas Programmer: Samantha Sabillon RT(R) Ht: 6 ft 0 in Wt: 155lbs BSA: 1.91 BP: 110/64 mmHg Indications: pericardial effusion during cath. Limited echo to assess effusion. scanning was performed in intervals post draining as was needed per MD. Conclusion 1. Limited echocardiogram was performed pre and post pericardiocentesis. 2. Initial echocardiogram showed normal left ventricular size and function, moderate to large sized pericardial effusion with intermittent buckling of the right ventricle raising the concerns for presence of tamponade physiology. 3. After pericardiocentesis there is trivial pericardial effusion noted. Intermittent buckling of the right ventricle resolved. 4. Inferior vena cava was not visualized. Electronically signed by : Maxwell Hastings MD 06/19/2021 20:36:07
--- NOTE | 2021-06-19 07:10 | IR_ITS ---
APPROVED REPORT Patient Location: Outpatient Merchandise Coordinator: DERECK Gannon RT (R) PROCEDURES Selective coronary angiogram Drug-eluting stent deployment to the proximal mid and distal left anterior descending artery Right femoral vein central access Emergent pericardiocentesis with pericardial drain placement Emergent chest tube left lung Attempted coated stent placement/Graftmaster placement Right radial arterial line placement INDICATION Coronary artery disease, Abnormal high risk Myoview, Angina pectoris, LAD perforation with cardiac tamponade, Hemorrhagic shock secondary to LAD perforation and cardiac tamponade, Tension pneumothorax, Informed consent was obtained prior to the procedure. COMPLICATIONS Cardiac tamponade, Pneumothorax Estimated Blood Loss: LESS THAN 10 ML TECHNIQUE 1% lidocaine used anesthetize right groin the right femoral arteries accessed via the Salinger technique and a 6 [place]ese sheath was placed in the right femoral artery. An EBU 3.75 guide catheter was placed in the left main artery and therapeutic heparin was administered giving a therapeutic ACT. A Choice PT extra-support wire was placed distally and a 2 mm balloon was used to predilate the stenosis up and down the LAD. A guide liner was placed in anticipation of difficulty with delivery of the stent. The guide liner was advanced and a 2.5 x 38 mm resolute [place] stent was deployed at 12 saima reducing the distal stenosis to 40%. The balloon was brought back and inflated at 20 saima to further post dilate. This produced excellent angiographic results with wide patency of the mid to distal stent. Following this an additional 2.5 x 30 mm resolute [place] stent was placed proximal to the first stent yet still overlapping it this 1 was deployed at 20 saima. Angiography post stent deployment revealed a large perforation in the mid LAD free-flowing into the pericardium. A balloon was placed back into the perforation and inflated thereby immediately stopping the perforation. By this time patient was hypotensive and anesthesia was called for airway assistance. Patient was emergently prepped for emergency pericardiocentesis. Echo was called into the Aircraft Engine Cylinder Mechanic. Large pericardial effusion was identified. The patient was prepped and large needle was inserted into the pericardial space followed by a wire. This allowed passage of the dilator into the pericardial space followed by the pericardial drain. Large volume of blood was removed immediately from the pericardial space. It is estimated between 600 and 800 cc of pure blood was aspirated. Patient received a brief amount of chest compressions less than 1 minute in duration. Patient was adequately intubated. Fluoroscopy demonstrated a large left-sided pneumothorax. The scalpel was used to rito the skin between the fourth and fifth rib and a 28 chest tube was advanced into the large pneumothorax immediately relieving pressure and improving blood pressure. Following this placement of the chest tube Dr. Babar Cobos entered the Aircraft Engine Cylinder Mechanic and then assisted with securing the chest tube and placing to suction. A 2.5 x 16 mm Graftmaster stent could not be advanced beyond the proximal LAD due to extensive calcification in the proximal LAD. Likewise a 2.5 x 19 mm Graftmaster stent was also attempted to be placed with the guide liner in place but it would not traverse the guide liner. The guide liner was removed and additional dilation was performed proximally in the LAD with an attempt to place a 3.5 x 19 mm Graftmaster stent. The stent would not make it into the proximal LAD either therefore a 3 mm x 38 mm resolute [place] stent was placed in the proximal segment which extended into the mid segment overlappin
[2021-06-19 11:18] LABS: ABG Base Excess -10.4 mmol/L (-2.4-2.3); ABG HCO3 16.1 mmhg (22.0-26.0); ABG Oxygen Saturation 100 % (90-100); ABG PCO2 34.1 mmhg (35.0-45.0); ABG PH 7.29 mmol/L (7.35-7.45); ABG PO2 522.1 mmhg (80-100); ABG TCO2 17.2 mmhg (23-27)
[2021-06-19 11:19] LABS: Oxygen 100 %; Source A LINE; Tidal Volume AMBU
--- NOTE | 2021-06-19 12:40 | SUR.OPER ---
Pt had perforation of LAD, immediately recognized by Dr. Day. Balloon placed in LAD to seal off perforation; Pt's heart rate began to decrease and pt became asystolic without a pulse. CPR initiated under direction of Dr. Day. Echo lab notified for STAT BS US. Patient prepped for Pericardialcentesis. Dr. Hough and Lavon notified of need for chest tube. CPR intermittenly while pericardiocentesis being completed. Epi 1 AMP 10:27 10:28; 10:29; 10:39; 10:56; Pt intubated per Lobo Feeback CLAMP TRUCK DRIVER @ 10:27 with 7.5 21@ LL; FiO2 @ 100%; VT-16; peep- 5; PS-5; Proprofol drip started after intuabtion. Right art line inserted per Vane Day MD. Pericardialcentesis catheter left in place with sterile dressing applied. Pt stabalized and transferred to [facility].
[2021-06-19 13:16] LABS: Basophils # 0.1 K/mm3 (0-0.2); Basophils % 0.5 % (0.1-2.0); Eosinophils # 0.2 K/mm3 (0.0-0.4); Eosinophils % 1.1 % (0.1-12.0); Lymphocytes # 1.8 K/mm3 (0.7-4.5); Mean Corpuscular HGB Conc 32.4 g/dL (31.8-35.4); Mean Corpuscular Hemoglobin 29.5 pg (27.0-31.2); Mean Corpuscular Volume 91.1 fl (80-94); Mean Platelet Volume 8.6 fl (7.4-10.4); Monocytes # 0.7 K/mm3 (0.1-1.0); Monocytes % 4.3 % (1.7-9.3); Neutrophils % 83.2 % (37.0-80.0); Platelet Count 160 K/mm3 (142-424); Red Blood Count 4.06 M/mm3 (4.60-6.20); Red Cell Distribution Width 17.3 % (11.5-17.5); White Blood Count 16.8 K/mm3 (4.8-10.8)
--- NOTE | 2021-06-19 13:18 | HMH.PHAVTE ---
[facility] Pharmacy VTE Monitoring - Patient Demographics Admission date: 06/19/21 Report Date: 06/19/21 Time: 13:18 Allergies/Adverse Reactions: Patient Allergies lisinopril Allergy (Intermediate, Verified 06/14/21 09:05) angioedema Height: 1.83 m Weight: 70.307 kg - VTE Risk Labs: VTE Related Lab Results Hct 37.0 % (42.0-52.0) L 06/19/21 12:56 Plt Count 160 K/mm3 (142-424) D 06/19/21 12:56 - Prophylaxis VTE Prophylaxis Ordered?: Yes Types of VTE Prophylaxis: TEDS Knee High Location of Applied Device: Bilateral Lower Extremeties
[2021-06-19 13:19] LABS: MANUAL DIFFERENTIAL MANUAL DIFFERENTIAL (MANUAL DIFF)
[2021-06-19 13:22] LABS: Hemoglobin 11.9 g/dL (14.1-18.0)
--- NOTE | 2021-06-19 13:28 | XR_ITS ---
FINAL REPORT CLINICAL HISTORY: Hypoxia COMPARISON: 12/10/2020 FINDINGS: SINGLE VIEW CHEST The heart is normal in size. The mediastinum is unremarkable. Endotracheal tube tip terminates in the midthoracic trachea. The NG tube is folded in the distal thoracic esophagus. Left chest tube and presumed left pleural catheter are present. There is a left-sided apical pneumothorax with 16 mm of pleural separation. There are new multifocal pulmonary opacities worrisome for bilateral pneumonia. IMPRESSION: Malpositioned NG tube. Patient's nurse Kaleigh Daugherty was notified of findings at time of dictation. Left-sided apical pneumothorax. Bilateral pneumonia. Reviewed, Interpreted and Dictated by Peewee Raymundo III, MD Transcribed by Diane Ward Authenticated by Peewee Raymundo III, MD on 06/19/2021 03:02:26 PM [facility]
[2021-06-19 13:39] LABS: Eosinophils % 1 % (0-3); Lymphocytes % 13 % (10-50); Monocytes % 6 % (2-9); Neutrophils % 80 % (42-76); Platelet Estimate Normal; RBC Morphology Normal; Total Cells Counted 100
--- NOTE | 2021-06-19 13:39 | HMH.GSCON ---
*Admission Date: 06/19/21 *Reason for consult:: Chest tube management *History of present illness: This is an 81-year-old gentleman who required emergent chest tube placement during cardiac catheterization performed earlier today. The surgical service was consulted for ongoing chest tube management. Review of Systems - Review of Systems Review of systems:: unable to obtain [facility] History Medical History: Reports:: Aneurysm, Chronic Obstructive Pulmonary Disease (COPD), Coronary Artery Disease, Diabetes Mellitus Type 2, Hyperlipidemia, Hypertension, Lung Disease Denies:: Diabetes Mellitus Type 1, Internal Pacemaker, Seizures *Have you ever received a pneumonia vaccine?: Yes *Have you received a flu vaccine this season?: Yes Other Medical History: Denies: Blood Transfusion Reaction Other Surgeries: Yes: Cardiac Catheterization, Colonoscopy, Colon Resection, Coronary Stent, EGD, Hernia Repair, Other. No: Pacemaker - *Social History Last grade of school completed: GED Smoking Status: Former smoker Tobacco Type: cigarettes # Packs/Day (cigarettes): 1 Alcohol Intake: current Alcohol Intake Frequency:: 0-2 drinks per day Substance Use Type: denies use *Occupational Status:: retired Housing: house Household Members: spouse *Travel in the last 8 weeks: None Family Hx:: No significant family history, Coronary Artery Disease Meds Home Medications Medication Instructions Recorded Confirmed Type aspirin 81 mg tablet,delayed 81 mg PO DAILY tab 05/15/17 06/19/21 History release cyclobenzaprine 10 mg tablet 10 mg PO HSP PRN #30 tab 08/16/19 06/19/21 Rx albuterol sulfate 90 mcg/actuation 2 inh INHALATION Q4HP PRN #6.7 g 03/15/20 06/19/21 Rx aerosol inhaler ipratropium 0.5 mg-albuterol 3 mg 3 ml INHALATION Q6H PRN #180 ml 03/21/20 06/19/21 Rx (2.5 mg base)/3 mL nebulization soln Hydrocod/Acet 5/325 mg [[place] 1 tab PO Q6HP PRN 12/10/20 06/19/21 History 5/325mg tablet] furosemide 20 mg tablet 20 mg PO DAILY #90 tab 01/29/21 06/19/21 Rx omeprazole 20 mg capsule,delayed 40 mg PO DAILY cap 04/30/21 06/19/21 History release Amlodipine Besylate [Norvasc 10mg 10 mg PO DAILY 06/04/21 06/19/21 History tablet] ticagrelor 90 mg tablet 90 mg PO BID tab 06/14/21 06/19/21 History Atorvastatin Calcium [Lipitor 40mg See Rx Instructions .ROUTE .COMPLEX 06/19/21 06/19/21 History Tab] Metoprolol Tartrate [Lopressor 100 100 mg PO BID 06/19/21 06/19/21 History mg Tablets] Allergies Allergy/AdvReac Type Severity Reaction Status Date / Time lisinopril Allergy Intermediate angioedema Verified 06/14/21 09:05 Exam Vital signs and Labs for Last 24 Hours: Temp Pulse Resp BP Pulse Ox 93.3 F L 102 H 16 139/79 92 L 06/19/21 12:51 06/19/21 12:50 06/19/21 12:50 06/19/21 08:57 06/19/21 08:57 Laboratory Results - last 24 hr 06/18/21 14:33: Blood Type Confirm O Positive 06/19/21 10:50: Blood Type O Positive, Antibody Screen Negative, Crossmatch (AHG) See Detail 06/19/21 10:53: Specimen Source A line, O2 % 100, ABG pH 7.29 L, ABG pCO2 34.1 L, ABG pO2 522.1 H, ABG HCO3 16.1 L, ABG Total CO2 17.2 L, ABG O2 Saturation 100, ABG Base Excess -10.4 L, Tidal Volume Ambu 06/19/21 12:56: WBC 16.8 H D, RBC 4.06 L, Hgb 11.9 L D, Hct 37.0 L, MCV 91.1, MCH 29.5, MCHC 32.4, RDW 17.3, Plt Count 160 D, MPV 8.6, Neut % (Auto) 83.2 H, Lymph % (Auto) 11.0, [place] % (Auto) 4.3, Eos % (Auto) 1.1, Baso % (Auto) 0.5, Neut # (Auto) 14.0 H, Lymph # (Auto) 1.8, [place] # (Auto) 0.7, Eos # (Auto) 0.2, Baso # (Auto) 0.1 I & O for Last 24 hours: Intake & Output 06/17/21 06/18/21 06/19/21 06/20/21 11:59 11:59 11:59 11:59 Weight 155 lb - Constitutional Comments: Intubated/sedated - *Routine Respiratory Exam Comments: Left chest tube in position Results - Labs 06/19/21 12:56 Laboratory Results - last 24 hr 06/18/21 14:33: Blood Type Confirm O Positive 06/19/21 10:50: Blood Type O Positive, Antib
--- NOTE | 2021-06-19 13:50 | HMH.PHAINT ---
Patient's home medication list was verified using the patient's PBM claim history and med-rec from most recent visit with his provider.
--- NOTE | 2021-06-19 14:48 | HMH.PULMCON ---
*Admission Date: 06/19/21 *Reason for consult:: Acute hypoxic respiratory failure doing mechanical ventilatory support *History of present illness: Mr. Rivera is a 81-year-old male prior smoker greater than [id number] smoking history history of stage I adenocarcinoma status post radiation following in route he presented for an outpatient perforation procedure, experienced left pneumothorax status post surgical chest tube placement by surgical team, vascular complications, cardiology following, needing intubation mechanical ventilatory support and pulmonary was called for ventilator management. [facility] History Medical History: Reports:: Aneurysm, Chronic Obstructive Pulmonary Disease (COPD), Coronary Artery Disease, Diabetes Mellitus Type 2, Hyperlipidemia, Hypertension, Lung Disease Denies:: Diabetes Mellitus Type 1, Internal Pacemaker, Seizures *Have you ever received a pneumonia vaccine?: Yes *Have you received a flu vaccine this season?: Yes Other Medical History: Denies: Blood Transfusion Reaction Other Surgeries: Yes: Cardiac Catheterization, Colonoscopy, Colon Resection, Coronary Stent, EGD, Hernia Repair, Other. No: Pacemaker - *Social History Last grade of school completed: GED Smoking Status: Former smoker Tobacco Type: cigarettes # Packs/Day (cigarettes): 1 Alcohol Intake: current Alcohol Intake Frequency:: 0-2 drinks per day Substance Use Type: denies use *Occupational Status:: retired Housing: house Household Members: spouse *Travel in the last 8 weeks: None Family Hx:: No significant family history, Coronary Artery Disease ROS - Review of Systems Review of systems:: unable to obtain Patient intubated and sedated Meds Home Medications Medication Instructions Recorded Confirmed Type aspirin 81 mg tablet,delayed 81 mg PO DAILY tab 05/15/17 06/19/21 History release cyclobenzaprine 10 mg tablet 10 mg PO HSP PRN #30 tab 08/16/19 06/19/21 Rx albuterol sulfate 90 mcg/actuation 2 inh INHALATION Q4HP PRN #6.7 g 03/15/20 06/19/21 Rx aerosol inhaler ipratropium 0.5 mg-albuterol 3 mg 3 ml INHALATION Q6H PRN #180 ml 03/21/20 06/19/21 Rx (2.5 mg base)/3 mL nebulization soln Hydrocod/Acet 5/325 mg [[place] 1 tab PO Q6HP PRN 12/10/20 06/19/21 History 5/325mg tablet] furosemide 20 mg tablet 20 mg PO DAILY #90 tab 01/29/21 06/19/21 Rx omeprazole 20 mg capsule,delayed 40 mg PO DAILY cap 04/30/21 06/19/21 History release Amlodipine Besylate [Norvasc 10mg 10 mg PO DAILY 06/04/21 06/19/21 History tablet] ticagrelor 90 mg tablet 90 mg PO BID tab 06/14/21 06/19/21 History Atorvastatin Calcium [Lipitor 40mg 40 mg PO DAILY 06/19/21 06/19/21 History Tab] Metoprolol Tartrate [Lopressor 100 100 mg PO BID 06/19/21 06/19/21 History mg Tablets] Allergies Allergy/AdvReac Type Severity Reaction Status Date / Time lisinopril Allergy Intermediate angioedema Verified 06/14/21 09:05 Exam - Constitutional Constitutional:: Present: no acute distress - HENMT Exam HENMT: Present: normocephalic - Eye Exam Eyes:: Present: normal appearance both eyes and related structures - Neck Exam Neck:: Present: normal visual inspection - Respiratory Exam Respiratory:: Present: no respiratory distress. Absent: wheezing - Cardiovascular Exam Cardiac:: Present: S1, S2 - GI Exam GI:: Present: soft - Skin Exam Skin: Present: warm, no rash - Neurological Exam Neurological: Absent: alert, awake, normal cognition - Extremities Exam Extremities: Present: no cyanosis, no clubbing, no edema Internal Medicine - CN: Reslt - Labs CBC & Chem 7: 06/19/21 12:56 Labs: Short CBC 06/19/21 Range/Units 12:56 WBC 16.8 H D (4.8-10.8) K/mm3 Hgb 11.9 L D (14.1-18.0) g/dL Hct 37.0 L (42.0-52.0) % Plt Count 160 D (142-424) K/mm3 - ABG Interpretation ABG results: 06/19/21 10:53 ABG pH 7.29 L ABG pCO2 34.1 L ABG pO2 522.1 H ABG HCO3 16.1 L ABG Total
[2021-06-19 14:57] LABS: ABG HCO3 19.1 mmhg (22.0-26.0); ABG Oxygen Saturation 100 % (90-100); ABG PCO2 50.7 mmhg (35.0-45.0); ABG PO2 520.9 mmhg (80-100); ABG TCO2 20.7 mmhg (23-27)
[2021-06-19 14:58] LABS: Oxygen 100 %; PEEP 5; Source ALINE; Tidal Volume 400; Vent Rate 16
--- NOTE | 2021-06-19 16:07 | CA_ITS ---
APPROVED REPORT EXAM: Comprehensive 2D, Doppler, and color-flow Echocardiogram Invoice Checker: Samantha Sabillon RT(R) Ht: 6 ft 0 in Wt: 155lbs BSA: 1.91 BP: 113/59 mmHg Indications: Reassess effusion post cath x 5 hours. Limited windows as chest tube and catheter for pericardiocentesis in place obscuring windows. images obtained from subxiphoid. Conclusion 1. Limited echocardiogram was obtained post pericardiocentesis. 2. No significant pericardial effusion noted. 3. Normal left ventricular systolic function. 4. Inferior vena cava is normal size with more than 50% inspiratory collapse. Electronically signed by : Maxwell Hastings MD 06/19/2021 20:50:18
--- NOTE | 2021-06-19 18:46 | PC.NURSE ---
only able to obtain minimal information from assessment r/t pt arriving on unit intubated post code
--- NOTE | 2021-06-19 19:04 | HMH.HP ---
*Admission Date: 06/19/21 *Chief complaint: coronary artery disease, unstable angina *History of present illness: Patient is an 81-year-old white male who was admitted to our service following a procedure in the Boarding Specialist earlier today. Cardiology notes are reviewed. Patient became hypotensive and hypoxic, and required intubation. Pericardiocentesis was performed emergently. Pt noted to have a left sided pneumothorax, requiring chest tube. He was transfused prbc's and one unit of FFP. Pulmonary service called for vent mgt Co-morbid ca lung noted, s/p xrt. Repeat echo performed this afternoon. [facility] History Medical History: Reports:: Aneurysm, Chronic Obstructive Pulmonary Disease (COPD), Coronary Artery Disease, Diabetes Mellitus Type 2, Hyperlipidemia, Hypertension, Lung Disease Denies:: Diabetes Mellitus Type 1, Internal Pacemaker, Seizures *Have you ever received a pneumonia vaccine?: Yes *Have you received a flu vaccine this season?: Yes Other Medical History: Denies: Blood Transfusion Reaction Other Surgeries: Yes: Cardiac Catheterization, Colonoscopy, Colon Resection, Coronary Stent, EGD, Hernia Repair, Other. No: Pacemaker - *Social History Last grade of school completed: GED Smoking Status: Former smoker Tobacco Type: cigarettes # Packs/Day (cigarettes): 1 Alcohol Intake: current Alcohol Intake Frequency:: 0-2 drinks per day Substance Use Type: denies use *Occupational Status:: retired Housing: house Household Members: spouse *Travel in the last 8 weeks: None Family Hx:: No significant family history, Coronary Artery Disease Review of Systems - Review of Systems Review of systems:: unable to obtain Meds Home Medications Medication Instructions Recorded Confirmed Type aspirin 81 mg tablet,delayed 81 mg PO DAILY tab 05/15/17 06/19/21 History release cyclobenzaprine 10 mg tablet 10 mg PO HSP PRN #30 tab 08/16/19 06/19/21 Rx albuterol sulfate 90 mcg/actuation 2 inh INHALATION Q4HP PRN #6.7 g 03/15/20 06/19/21 Rx aerosol inhaler ipratropium 0.5 mg-albuterol 3 mg 3 ml INHALATION Q6H PRN #180 ml 03/21/20 06/19/21 Rx (2.5 mg base)/3 mL nebulization soln Hydrocod/Acet 5/325 mg [[place] 1 tab PO Q6HP PRN 12/10/20 06/19/21 History 5/325mg tablet] furosemide 20 mg tablet 20 mg PO DAILY #90 tab 01/29/21 06/19/21 Rx omeprazole 20 mg capsule,delayed 40 mg PO DAILY cap 04/30/21 06/19/21 History release Amlodipine Besylate [Norvasc 10mg 10 mg PO DAILY 06/04/21 06/19/21 History tablet] ticagrelor 90 mg tablet 90 mg PO BID tab 06/14/21 06/19/21 History Atorvastatin Calcium [Lipitor 40mg 40 mg PO DAILY 06/19/21 06/19/21 History Tab] Metoprolol Tartrate [Lopressor 100 100 mg PO BID 06/19/21 06/19/21 History mg Tablets] Allergies Allergy/AdvReac Type Severity Reaction Status Date / Time lisinopril Allergy Intermediate angioedema Verified 06/14/21 09:05 Exam Vital signs and Labs for Last 24 Hours: Temp Pulse Resp BP Pulse Ox 96.4 F L 82 18 133/83 93 L 06/19/21 16:37 06/19/21 18:07 06/19/21 18:08 06/19/21 15:25 06/19/21 18:08 Laboratory Results - last 24 hr 06/18/21 14:33: Blood Type Confirm O Positive 06/19/21 10:50: Blood Type O Positive, Antibody Screen Negative, Crossmatch (AHG) See Detail 06/19/21 10:53: Specimen Source A line, O2 % 100, ABG pH 7.29 L, ABG pCO2 34.1 L, ABG pO2 522.1 H, ABG HCO3 16.1 L, ABG Total CO2 17.2 L, ABG O2 Saturation 100, ABG Base Excess -10.4 L, Tidal Volume Ambu 06/19/21 11:47: Specimen Source [place], O2 % 100, ABG pH 7.20 L*, ABG pCO2 50.7 H, ABG pO2 520.9 H, ABG HCO3 19.1 L, ABG Total CO2 20.7 L, ABG O2 Saturation 100, ABG Base Excess -9.0 L, Vent Rate 16, Tidal Volume 400, PEEP 5 06/19/21 12:56: WBC 16.8 H D, RBC 4.06 L, Hgb 11.9 L D, Hct 37.0 L, MCV 91.1, MCH 29.5, MCHC 32.4, RDW 17.3, Plt Count 160 D, MPV 8.6, Neut % (Auto) 83.2 H, Lymph % (Auto) 11.0, [place] % (Auto) 4.3, Eos % (Auto) 1.1, Baso % (Auto) 0.5, Neut # (Auto) 14.
[2021-06-19 19:24] LABS: Coronavirus 19, PCR Not Detected (NotDetected); Influenza A, PCR Not Detected (NotDetected); Influenza B, PCR Not Detected (NotDetected)
--- NOTE | 2021-06-19 20:20 | PC.NURSE ---
unable to elevate pt HOB greater than 10degrees r/t pt having venous sheath in place to r groin. per Dr Day, pt hob to be 10 degrees
--- NOTE | 2021-06-19 20:30 | PC.NURSE ---
Addendum entered by Kaleigh Daugherty RN 06/19/21 20:37: unable to complete manual blood pressure on rue r/t art line and iv insertion sites. Original Note: Pt was intubated prior to arrival to unit. upon arrival at approx 1230 pt was on propofol and levophed. pt had chest tube in place (placed on suction by myself per Dr Day order). pericardial drain mid chest, venous sheath with levophed infusin, art line (that was connected and set up by myself and [employer] house lab[employer] staff at bedside) NG tube was inserted at bedside by [facility] [employer] staff, chawla cath inserted by stella hall RN
[2021-06-19 20:46] LABS: Chloride 112 mmol/L (98-107)
[2021-06-19 20:47] LABS: Potassium 4.5 mmoL/L (3.5-5.1); Sodium 137 mmol/L (136-145)
[2021-06-19 20:49] LABS: Blood Urea Nitrogen 35 mg/dl (9-20); Creatinine Clearance Estimated 39 mL/min (50-200); Estimated Glomerular Filt Rate 41 ml/min (>60); GFR (African American) 50 ML/MIN (>60)
[2021-06-19 20:50] LABS: Anion Gap 9.5 mEq/L (5-15); Calcium 6.8 mg/dl (8.4-10.2); Carbon Dioxide 20 mmol/L (22.0-30.0); Glucose 83 mg/dl (74-100)
[2021-06-19 21:05] LABS: Basophils % 0.2 % (0.1-2.0); Eosinophils % 0.2 % (0.1-12.0); Hematocrit 33.1 % (42.0-52.0); Lymphocytes # 0.9 K/mm3 (0.7-4.5); Lymphocytes % 6.9 % (10-50); Mean Corpuscular HGB Conc 33.3 g/dL (31.8-35.4); Mean Corpuscular Hemoglobin 29.7 pg (27.0-31.2); Mean Corpuscular Volume 89.3 fl (80-94); Mean Platelet Volume 7.9 fl (7.4-10.4); Monocytes # 0.8 K/mm3 (0.1-1.0); Monocytes % 6.2 % (1.7-9.3); Neutrophils # 11.4 K/mm3 (1.8-7.8); Neutrophils % 86.5 % (37.0-80.0); Platelet Count 118 K/mm3 (142-424); Red Cell Distribution Width 17.8 % (11.5-17.5); White Blood Count 13.2 K/mm3 (4.8-10.8)
--- NOTE | 2021-06-19 21:17 | PC.NURSE ---
Dr Day was notified face to face at approx 1400 that pt art line was still oozing blood and had traclet in place to hold pressure. also notified that pt rectal temp was 93.3 upon arrival to unit and has since dropped to 92 rectally. pt was placed on danielito paws, room temperature increased and has warm blankets in place. temp is not responding. per md continue to monitor. also notified that pt levophed drip was increased from 8mcg to 15mcg r/t bp in the 70's upon arrival to the unit. notified him that there was initially issues with the art line, but it has since been resolved and pt bp was noted to be trending upward. levophed drip to be weaned as tolerated. [id number]- notified Dr Hoguh that pt chest tube was noted to be oozing blood. pressure dressing was applied. (per md if site continues to ooze hole manual pressure) also notified that pt CT has air leak. states that this is to be expected, no new orders. if bleeding persists, have him paged. 1500 notified Vivian dalton in [facility] that pt temp was now 91.8. new orders received to infuse warm IVF for pt. 2 1000 ml NS bolus at 999ml/hr. then LR (not warmed) for maintenance fluids. (dr Day arrived on unit at 1505 to assess pt was well) 1635 notified md that pt temp was 96.4 1716 temp 98.2. pt was removed from danielito paws, will monitor closely. no new orders from md in regards to temp.
--- NOTE | 2021-06-19 21:26 | PC.NURSE ---
drip titrations: 1229 levo 8mcg 1235 levo 10mcg 1240 levo 15mcg 1530 levo 10mcg 1600 levo 5mcg 1630 levo off
[2021-06-20] VITALS (36 sets, daily range): BP systolic 83–155; BP diastolic 48–66; PULSE 76–104; RESP 16–47; TEMP 36.3–37.2; O2SAT 90–99; BMI 23.1
[2021-06-20 06:17] LABS: Basophils % 0.4 % (0.1-2.0); Eosinophils % 0.2 % (0.1-12.0); Hematocrit 28.6 % (42.0-52.0); Lymphocytes # 1.1 K/mm3 (0.7-4.5); Lymphocytes % 13.4 % (10-50); Mean Corpuscular HGB Conc 32.6 g/dL (31.8-35.4); Mean Corpuscular Hemoglobin 29.1 pg (27.0-31.2); Mean Corpuscular Volume 89.2 fl (80-94); Monocytes # 0.5 K/mm3 (0.1-1.0); Monocytes % 6.3 % (1.7-9.3); Neutrophils # 6.3 K/mm3 (1.8-7.8); Neutrophils % 79.6 % (37.0-80.0); Platelet Count 109 K/mm3 (142-424); Red Blood Count 3.21 M/mm3 (4.60-6.20); Red Cell Distribution Width 18.1 % (11.5-17.5); White Blood Count 7.9 K/mm3 (4.8-10.8)
[2021-06-20 06:19] LABS: Chloride 111 mmol/L (98-107); Potassium 4.2 mmoL/L (3.5-5.1); Sodium 137 mmol/L (136-145)
[2021-06-20 06:22] LABS: Anion Gap 6.2 mEq/L (5-15); Blood Urea Nitrogen 28 mg/dl (9-20); Calcium 6.9 mg/dl (8.4-10.2); Carbon Dioxide 24 mmol/L (22.0-30.0); Creatinine Clearance Estimated 41 mL/min (50-200); Estimated Glomerular Filt Rate 45 ml/min (>60); GFR (African American) 54 ML/MIN (>60); Glucose 101 mg/dl (74-100)
--- NOTE | 2021-06-20 07:00 | XR_ITS ---
PROCEDURE INFORMATION: Exam: XR Chest Exam date and time: 06/20/2021 5:09 AM Age: 81 years old Clinical indication: Device placement; Ett placement (vent status); Additional info: Ett and ng placement TECHNIQUE: Imaging protocol: XR of the chest. Views: 1 view. COMPARISON: CR XR CHEST PORTABLE 06/19/2021 1:41 PM FINDINGS: Tubes, catheters and devices: Left-sided pleural tube. ET tube and nasogastric tube unchanged. Lungs: Some patchy bibasilar airspace disease is again noted. Pleural spaces: Left-sided pneumothorax unchanged. Heart/Mediastinum: Unremarkable. No cardiomegaly. Bones/joints: Unremarkable. IMPRESSION: Left pneumothorax unchanged. Bibasilar airspace disease unchanged.
--- NOTE | 2021-06-20 07:23 | HMH.GSPN ---
Subjective Narrative: Per nursing, bleeding around chest tube site has improved with pressure dressings. He has had an intermittent air leak overnight. Progress Note: A&P (1) Pneumothorax, left Status: Acute (2) Emphysema lung Status: Acute (3) Essential hypertension Status: Acute (4) Neoplasm of lung Status: Acute (5) CAD (coronary artery disease) Status: Chronic (6) COPD (chronic obstructive pulmonary disease) Status: Chronic (7) HHD (hypertensive heart disease) Status: Chronic (8) PAD (peripheral artery disease) Status: Chronic (9) Renal insufficiency Status: Chronic Exam Vital signs and Labs for Last 24 Hours: Temp Pulse Resp BP Pulse Ox 98.9 F 83 16 102/60 L 97 06/20/21 05:00 06/20/21 07:00 06/20/21 07:00 06/20/21 07:00 06/20/21 07:00 Laboratory Results - last 24 hr 06/18/21 14:33: Blood Type Confirm O Positive 06/19/21 10:50: Blood Type O Positive, Antibody Screen Negative, Crossmatch (AHG) See Detail 06/19/21 10:53: Specimen Source A line, O2 % 100, ABG pH 7.29 L, ABG pCO2 34.1 L, ABG pO2 522.1 H, ABG HCO3 16.1 L, ABG Total CO2 17.2 L, ABG O2 Saturation 100, ABG Base Excess -10.4 L, Tidal Volume Ambu 06/19/21 11:47: Specimen Source [place], O2 % 100, ABG pH 7.20 L*, ABG pCO2 50.7 H, ABG pO2 520.9 H, ABG HCO3 19.1 L, ABG Total CO2 20.7 L, ABG O2 Saturation 100, ABG Base Excess -9.0 L, Vent Rate 16, Tidal Volume 400, PEEP 5 06/19/21 12:56: WBC 16.8 H D, RBC 4.06 L, Hgb 11.9 L D, Hct 37.0 L, MCV 91.1, MCH 29.5, MCHC 32.4, RDW 17.3, Plt Count 160 D, MPV 8.6, Neut % (Auto) 83.2 H, Lymph % (Auto) 11.0, [place] % (Auto) 4.3, Eos % (Auto) 1.1, Baso % (Auto) 0.5, Neut # (Auto) 14.0 H, Lymph # (Auto) 1.8, [place] # (Auto) 0.7, Eos # (Auto) 0.2, Baso # (Auto) 0.1, Total Counted 100, Neutrophils % (Manual) 80 H, Lymphocytes % (Manual) 13, Monocytes % (Manual) 6, Eosinophils % (Manual) 1, Platelet Estimate Normal, RBC Morphology Normal 06/19/21 18:51: SARS-CoV-2 (PCR) Not detected, Influenza A Untype (PCR) Not detected, Influenza Type B (PCR) Not detected 06/19/21 20:00: WBC 13.2 H, RBC 3.70 L, Hgb 11.0 L, Hct 33.1 L, MCV 89.3, MCH 29.7, MCHC 33.3, RDW 17.8 H, Plt Count 118 L D, MPV 7.9, Neut % (Auto) 86.5 H, Lymph % (Auto) 6.9 L, [place] % (Auto) 6.2, Eos % (Auto) 0.2, Baso % (Auto) 0.2, Neut # (Auto) 11.4 H, Lymph # (Auto) 0.9, [place] # (Auto) 0.8, Eos # (Auto) 0.0, Baso # (Auto) 0.0 06/19/21 20:00: Sodium 137, Potassium 4.5, Chloride 112 H, Carbon Dioxide 20 L, Anion Gap 9.5, BUN 35 H, Creatinine 1.60 H, Estimated Creat Clear 39, Estimated GFR 41 L, Est GFR ( Amer) 50 L D, Glucose 83, Calcium 6.8 L 06/20/21 05:20: WBC 7.9 D, RBC 3.21 L, Hct 28.6 L, MCV 89.2, MCH 29.1, MCHC 32.6, RDW 18.1 H, Plt Count 109 L, MPV 8.0, Neut % (Auto) 79.6, Lymph % (Auto) 13.4, [place] % (Auto) 6.3, Eos % (Auto) 0.2, Baso % (Auto) 0.4, Neut # (Auto) 6.3, Lymph # (Auto) 1.1, [place] # (Auto) 0.5, Eos # (Auto) 0.0, Baso # (Auto) 0.0 06/20/21 05:20: Sodium 137, Potassium 4.2, Chloride 111 H, Carbon Dioxide 24, Anion Gap 6.2, BUN 28 H, Creatinine 1.50 H, Estimated Creat Clear 41, Estimated GFR 45 L, Est GFR ( Amer) 54 L, Glucose 101 H D, Calcium 6.9 L I & O for Last 24 hours: Intake & Output 06/17/21 06/18/21 06/19/21 06/20/21 11:59 11:59 11:59 11:59 Intake Total 500 / 1000 5063.39 / 5063.39 Output Total 730 / 730 Balance 500 / 1000 4333.39 / 4333.39 Weight 155 lb 171 lb Microbiology Reports for the Last 24 Hours: Microbiology 06/19/21 12:22 Sputum - Endotracheal Tube Aspirate Gram Stain - Final - Constitutional Comments: Intubated/sedated - Routine Chest/Breast/Axilla Exam Comments: Chest tube in position. No sign of continuing blood loss. Airleak currently appreciable only with pressure adjustments. Continue chest tube to suction for now
--- NOTE | 2021-06-20 08:00 | PC.NURSE ---
RESP CARE NOTE: Pt placed into SBT mode with pressure control of 5 cmH2O, and PEEP of 5 cmH2O, and FIO2 of 45% per Dr Laguna verbal order.
--- NOTE | 2021-06-20 08:10 | HMH.CNCARD ---
History of Present Illness Consult date: 06/20/21 Requesting physician: Mitchell Hudson Chief complaint: coronary dissection Additional Medical History:: 1. CAD A. [facility], 06/03/2021, CHANDANA to circumflex. Persistent LAD disease to be readdressed in 2 weeks. B. [facility], 06/19/2021, Successful percutaneous revascularization of the proximal mid and distal LAD with 3 contiguous stents reducing all the stenoses to less than 10% with ZACHARY-3 flow down the LAD Perforation of the LAD which was treated with prolonged balloon inflation and drug-eluting stenting Attempted placement of 3 different Graftmaster stents which all of which were unsuccessful Successful pericardial drain placement with emergent pericardiocentesis secondary to cardiac tamponade Successful placement of right femoral venous sheath for hemorrhagic shock with successful repletion of 4 units of blood Successful placement of right radial arterial line Successful endotracheal intubation Successful chest tube placement 2. Hypertension A. Echocardiogram, 03/2020, technically difficult study. Biatrial enlargement, normal LV size with EF 55% and no regional wall motion abnormality. Grade 1 diastolic dysfunction. Mild RV enlargement with normal contractility. Mild MR and TR with RVSP 48 mmHg. 3. Hyperlipidemia, on statin therapy 4. Diabetes mellitus type 2 5. COPD 6. History of lung cancer status post x-ray therapy x2020. Followed by Dr. Yee 7. Chronic kidney disease with evidence of right renal artery stenosis on renal duplex dated 02/2020, treated medically with stable blood pressure 8. PAD with history of bilateral common iliac artery stents 9. History of abdominal aortic aneurysm status post aortic endograft, approx 2018, patent by ultrasound 12/2020 10. Obstructive sleep apnea 11. Renal artery stenosis A. Renal duplex, 02/2020, Study suggests greater than 60% stenosis of the right renal artery. Study suggests no evidence of stenosis of the left renal artery. 6.9 X 6.4 cm [place] aneurysm sac seen with 3.2 X 4.2 cm patent graft seen. History of present illness: 81-year-old white male admitted after planned outpatient procedure. During left heart catheterization with stenting of the LAD, patient suffered LAD dissection with subsequent free-flowing blood into the pericardial sac which was urgently and successfully treated. Patient did require intubation and mechanical ventilation, pericardial drain and placement of left-sided chest tube during the procedure. He was admitted for further treatment. Please see cardiac cath dictation for further information. Surgical consult has been obtained for management of chest tube and pulmonary consult has been obtained for management of the ventilator. Patient remains on the ventilator this morning with planned trial today for consideration of extubation. Patient's blood pressure is stable off of pressors. Repeat echocardiogram yesterday showed minimal pericardial fluid, we will plan to remove drain this morning. [facility] History Medical History: Reports:: Aneurysm, Chronic Obstructive Pulmonary Disease (COPD), Coronary Artery Disease, Diabetes Mellitus Type 2, Hyperlipidemia, Hypertension, Lung Disease Denies:: Diabetes Mellitus Type 1, Internal Pacemaker, Seizures *Have you ever received a pneumonia vaccine?: No *Have you received a flu vaccine this season?: No Other Medical History: Denies: Blood Transfusion Reaction Other Surgeries: Yes: Cardiac Catheterization, Colonoscopy, Colon Resection, Coronary Stent, EGD, Hernia Repair, Other. No: Pacemaker - *Social History Last grade of school completed: GED Smoking Status: Former smoker Tobacco Type: cigarettes # Packs/Day (cigarettes): 1 Alcohol Intake: never Alcohol Intake Frequency:: 0-2 drinks per day Substance Use Type: denies use *Occupational Status:: retired Housing: house Household Members: spouse *Travel in the last 8 weeks: None Family Hx:
--- NOTE | 2021-06-20 08:40 | PC.NURSE ---
Lis CASTILLO @ [facility] and discontinued pericardial drain. No issues noted. Dressing placed over site. Dr. Shay rodriguez.
--- NOTE | 2021-06-20 09:03 | HMH.PULMPN ---
Internal Medicine - PN: Subj *Date: 06/20/21 *Time: 11:48 Interval history: No acute respiratory events overnight. Continues to remain on minimal ventilator settings. Exam - Constitutional Constitutional:: Absent: no acute distress - HENMT Exam HENMT: Present: normocephalic - Eye Exam Eyes:: Present: normal appearance both eyes and related structures - Neck Exam Neck:: Present: normal visual inspection - Respiratory Exam Respiratory:: Present: no respiratory distress. Absent: wheezing - Cardiovascular Exam Cardiac:: Present: S1, S2 - GI Exam GI:: Present: soft - Skin Exam Skin: Present: warm - Neurological Exam Neurological: Present: awake. Absent: alert, normal cognition - Extremities Exam Extremities: Present: no cyanosis, no clubbing, no edema Assessment and Plan (1) Pneumothorax, left Status: Acute Category: Medical Code(s): J93.9 - Pneumothorax, unspecified (2) Emphysema lung Status: Acute Category: Medical Code(s): J43.9 - Emphysema, unspecified (3) Essential hypertension Status: Acute Category: Medical Code(s): I10 - Essential (primary) hypertension (4) Neoplasm of lung Status: Acute Category: Medical Code(s): D49.1 - Neoplasm of unspecified behavior of respiratory system (5) CAD (coronary artery disease) Status: Chronic Qualifiers: Coronary Disease-Associated Artery/Lesion type: [place] artery [place] vs. transplanted heart: [place] heart Associated angina: without angina Qualified Code(s): I25.10 - Atherosclerotic heart disease of [place] coronary artery without angina pectoris Category: Medical Code(s): I25.10 - Atherosclerotic heart disease of [place] coronary artery without angina pectoris (6) COPD (chronic obstructive pulmonary disease) Status: Chronic Qualifiers: COPD type: unspecified COPD Qualified Code(s): J44.9 - Chronic obstructive pulmonary disease, unspecified Category: Medical Code(s): J44.9 - Chronic obstructive pulmonary disease, unspecified (7) HHD (hypertensive heart disease) Status: Chronic Qualifiers: Heart failure presence: unspecified whether heart failure present Qualified Code(s): I11.9 - Hypertensive heart disease without heart failure Category: Medical Code(s): I11.9 - Hypertensive heart disease without heart failure (8) PAD (peripheral artery disease) Status: Chronic Category: Medical Code(s): I73.9 - Peripheral vascular disease, unspecified (9) Renal insufficiency Status: Chronic Category: Medical Code(s): N28.9 - Disorder of kidney and ureter, unspecified - Assessment and plan all Dx Assessment and Plan for all problems:: #Acute hypoxic respiratory failure mechanical ventilatory support: # Shock: 3-yGreater than [id number]-[id number] smoking history carries a diagnosis COPD, stage I lung cancer left upper lobe [place] Ca status post radiation completion currently under surveillance with most recent CT showed improving size of the nodule. Presented for an outpatient left heart cath catheterization needing mechanical ventilator support and pulmonary was called for ventilator management. Interval update: No acute change in ventilator settings. Continue to remain on minimal settings. Shock resolved not on any pressors. Map greater than 65. Cultures pending with no growth so far. Plan: -AnalgoSedation with propofol and fentanyl. No need for deep sedation. SBT as tolerated -Continue mechanical ventilatory support, currently on minimal settings including PEEP of 5, tidal volume 440 and FiO2 40%. ABG on this morning showed respiratory acidosis with a pH of 7.24 and PCO2 51.8. We will increase the rate to 20 from 16. Failed SBT this morning secondary to tachypnea. Properly manage pain with as needed fentanyl. Follow with tracheal aspirate. Chest x-ray post intubation showing left upper lobe possible postradiation changes along with dense circular consolidation in the right lower lo
[2021-06-20 09:10] LABS: ABG Base Excess -5.6 mmol/L (-2.4-2.3); ABG HCO3 21.8 mmhg (22.0-26.0); ABG Oxygen Saturation 92 % (90-100); ABG PH 7.24 mmol/L (7.35-7.45); ABG PO2 73.6 mmhg (80-100); ABG TCO2 23.3 mmhg (23-27)
[2021-06-20 09:15] LABS: Oxygen 45 %; PEEP 5; Pressure Support 5
[2021-06-20 09:16] LABS: ABG PCO2 51.8 mmhg (35.0-45.0)
--- NOTE | 2021-06-20 09:20 | PC.NURSE ---
RESP CARE NOTE: Pt placed back into Assist Control mode of ventilation at previous settings, per Dr Laguna.
--- NOTE | 2021-06-20 09:23 | PC.NURSE ---
Dr. Laguna @ ordered to STOP the Fentanyl gtt, STOP the Propofol gtt, and discontinue LR @ 125mL/hr. Will use Fentanyl 12.5mcg prn per Jase.
[2021-06-20 09:30] LABS: Microscopic, Urine URINE MICROSCOPIC (MICROSCOPIC)
[2021-06-20 09:37] LABS: Appearance,Urine CLEAR (Clear); Bilirubin,Urine Negative (Negative); Blood, Urine 1+ (Negative); Color,Urine YELLOW (Yellow); Glucose,Urine (UA) TRACE (Negative); Ketones,Urine Negative (Negative); Leukocyte Esterase,Urine Negative (Negative); Nitrate,Urine Negative (Negative); Protein,Urine 2+ (Negative); Urobilinogen,Urine 0.2 EU/dl (0.2)
[2021-06-20 09:40] LABS: Hemoglobin 9.4 g/dL (14.1-18.0)
--- NOTE | 2021-06-20 10:16 | HMH.ACPN2 ---
Internal Medicine - PN: Subj *Date: 06/20/21 *Time: 08:20 Interval history: on vent bprv spont fi02 45,peep 5,ps 5,rate [address] pericardial drain removed Exam Vital signs and Labs for Last 24 Hours: Temp Pulse Resp BP Pulse Ox 98.4 F 103 H 27 H 155/59 H 95 06/20/21 08:00 06/20/21 10:00 06/20/21 10:00 06/20/21 10:00 06/20/21 10:00 Laboratory Results - last 24 hr 06/18/21 14:33: Blood Type Confirm O Positive 06/19/21 10:50: Blood Type O Positive, Antibody Screen Negative, Crossmatch (AHG) See Detail 06/19/21 10:53: Specimen Source A line, O2 % 100, ABG pH 7.29 L, ABG pCO2 34.1 L, ABG pO2 522.1 H, ABG HCO3 16.1 L, ABG Total CO2 17.2 L, ABG O2 Saturation 100, ABG Base Excess -10.4 L, Tidal Volume Ambu 06/19/21 11:47: Specimen Source [place], O2 % 100, ABG pH 7.20 L*, ABG pCO2 50.7 H, ABG pO2 520.9 H, ABG HCO3 19.1 L, ABG Total CO2 20.7 L, ABG O2 Saturation 100, ABG Base Excess -9.0 L, Vent Rate 16, Tidal Volume 400, PEEP 5 06/19/21 12:56: WBC 16.8 H D, RBC 4.06 L, Hgb 11.9 L D, Hct 37.0 L, MCV 91.1, MCH 29.5, MCHC 32.4, RDW 17.3, Plt Count 160 D, MPV 8.6, Neut % (Auto) 83.2 H, Lymph % (Auto) 11.0, [place] % (Auto) 4.3, Eos % (Auto) 1.1, Baso % (Auto) 0.5, Neut # (Auto) 14.0 H, Lymph # (Auto) 1.8, [place] # (Auto) 0.7, Eos # (Auto) 0.2, Baso # (Auto) 0.1, Total Counted 100, Neutrophils % (Manual) 80 H, Lymphocytes % (Manual) 13, Monocytes % (Manual) 6, Eosinophils % (Manual) 1, Platelet Estimate Normal, RBC Morphology Normal 06/19/21 18:51: SARS-CoV-2 (PCR) Not detected, Influenza A Untype (PCR) Not detected, Influenza Type B (PCR) Not detected 06/19/21 20:00: WBC 13.2 H, RBC 3.70 L, Hgb 11.0 L, Hct 33.1 L, MCV 89.3, MCH 29.7, MCHC 33.3, RDW 17.8 H, Plt Count 118 L D, MPV 7.9, Neut % (Auto) 86.5 H, Lymph % (Auto) 6.9 L, [place] % (Auto) 6.2, Eos % (Auto) 0.2, Baso % (Auto) 0.2, Neut # (Auto) 11.4 H, Lymph # (Auto) 0.9, [place] # (Auto) 0.8, Eos # (Auto) 0.0, Baso # (Auto) 0.0 06/19/21 20:00: Sodium 137, Potassium 4.5, Chloride 112 H, Carbon Dioxide 20 L, Anion Gap 9.5, BUN 35 H, Creatinine 1.60 H, Estimated Creat Clear 39, Estimated GFR 41 L, Est GFR ( Amer) 50 L D, Glucose 83, Calcium 6.8 L 06/19/21 20:33: Urine Color Yellow, Urine Appearance Clear, Urine pH 5.0, Ur Specific [place] 1.020, Urine Protein 2+, Urine Glucose (UA) Trace, Urine Ketones Negative, Urine Blood 1+, Urine Nitrate Negative, Urine Bilirubin Negative, Urine Urobilinogen 0.2, Ur Leukocyte Esterase Negative, Urine RBC 5-10, Urine WBC 3-5, Ur Squamous Epith Cells 3-5, Urine Bacteria None 06/20/21 05:20: WBC 7.9 D, RBC 3.21 L, Hgb 9.4 L D, Hct 28.6 L, MCV 89.2, MCH 29.1, MCHC 32.6, RDW 18.1 H, Plt Count 109 L, MPV 8.0, Neut % (Auto) 79.6, Lymph % (Auto) 13.4, [place] % (Auto) 6.3, Eos % (Auto) 0.2, Baso % (Auto) 0.4, Neut # (Auto) 6.3, Lymph # (Auto) 1.1, [place] # (Auto) 0.5, Eos # (Auto) 0.0, Baso # (Auto) 0.0 06/20/21 05:20: Sodium 137, Potassium 4.2, Chloride 111 H, Carbon Dioxide 24, Anion Gap 6.2, BUN 28 H, Creatinine 1.50 H, Estimated Creat Clear 41, Estimated GFR 45 L, Est GFR ( Amer) 54 L, Glucose 101 H D, Calcium 6.9 L 06/20/21 07:00: Specimen Source a line, O2 % 45, ABG pH 7.24 L*, ABG pCO2 51.8 H, ABG pO2 73.6 L, ABG HCO3 21.8 L, ABG Total CO2 23.3, ABG O2 Saturation 92, ABG Base Excess -5.6 L, 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 Absent: lymphadenopathy - *Routine Respiratory Exam Present: [facility]
--- NOTE | 2021-06-20 11:30 | PC.NURSE ---
Dr. Day @ [facility]. He ordered to keep HR<80 and SBP<140. Esmolol gtt and Nipride gtt ordered. Esmolol gtt started @ 50mcg/kg/min. Will titrate per Dr. Day for goal parameters. Nipride gtt not started at this time.
--- NOTE | 2021-06-20 11:52 | CA_ITS ---
APPROVED REPORT EXAM: Comprehensive 2D, Doppler, and color-flow Echocardiogram Refining Still Operator: Samantha Sabillon RT(R) Ht: 6 ft 0 in Wt: 170lbs BSA: 1.99 BP: 113/85 mmHg Indications: recheck effusion 24 hours post pericardiocentesis and cath. Limited scanning as patient is currenlty intubated but lightly sedated. He was shielding with every attempt made to scan subxiphoid making imaging difficult. Chest tube in place limiting imaging to subxiphoid access only. Conclusion 1. Limited echocardiogram was obtained to evaluate for pericardial effusion. 2. No significant pericardial effusion noted. Electronically signed by : Maxwell Hastings MD 06/20/2021 21:26:48
--- NOTE | 2021-06-20 12:10 | PC.NURSE ---
RESP CARE NOTE: Respiratory rate increased to [address] Laguna verbal order.
--- NOTE | 2021-06-20 14:15 | PC.NURSE ---
RESP CARE NOTE: Pt placed back into Spontaneous Breathing trial of 5/[address] Laguna verbal order. Will continue to monitor patient.
--- NOTE | 2021-06-20 17:04 | PC.NURSE ---
Propofol gtt restarted per Dr. Laguna
[2021-06-20 17:42] LABS: POC Glucose,Bedside 113 (70-110)
--- NOTE | 2021-06-20 18:49 | PC.NURSE ---
received call from Dr. Day. He ordered to start LR @ 50mL/hr.
[2021-06-21] VITALS (31 sets, daily range): BP systolic 98–158; BP diastolic 48–71; PULSE 70–118; RESP 18–28; TEMP 36.1–36.9; O2SAT 93–99; BMI 23.1
--- NOTE | 2021-06-21 04:48 | PC.NURSE ---
Pt has been restless at times this shift. He remains on Propofol. Currently infusing @ 30 mcg/kg/min. Fentanyl @ 30 mcg/hr. Esmolol @ 100 mcg/kg/min. LR is infusing @ 50 ml/hr. Oral care and suctioning provided. Pt has had copious amounts of secretions. Vent settings are as follows: AC, FiO2 45, TV 440, R 20, PEEP 5. Medications administered mar. Titrated per protocol. VSS. No other concerns. Will continue to monitor.
--- NOTE | 2021-06-21 06:00 | XR_ITS ---
PROCEDURE INFORMATION: Exam: XR Chest Exam date and time: 06/21/2021 5:27 AM Age: 81 years old Clinical indication: Device placement; Ett placement (vent status); Additional info: Intubated/post code TECHNIQUE: Imaging protocol: XR of the chest. Views: 1 view. COMPARISON: CR XR CHEST PORTABLE 06/20/2021 5:09 AM FINDINGS: Tubes, catheters and devices: Endotracheal tube terminates approximately 4.8 cm above the vivek. Enteric tube terminates in the region of the gastric fundus. Left chest tube is in place. Lungs: Similar patchy opacities in the lung bases. Pleural spaces: Decreased size of the left pneumothorax. Probable small bilateral pleural effusions. Heart/Mediastinum: Unremarkable. No cardiomegaly. Bones/joints: Unremarkable. IMPRESSION: Decreased size of the left pneumothorax with similar patchy airspace opacities in the bilateral lung bases.
--- NOTE | 2021-06-21 06:18 | PC.NURSE ---
Propofol placed on standby.
--- NOTE | 2021-06-21 07:01 | P.PN_ITS ---
Subjective Narrative: The patient is now off sedation and per nursing is intermittently agitated. Nursing notes no air leak on chest tube overnight. Progress Note: A&P (1) Pneumothorax, left Status: Acute Assessment and plan: Persistent but decreasing apical pneumothorax. Continue chest tube to suction for now Once extubated (pending results of follow-up films) chest tube likely to be placed to waterseal (2) Emphysema lung Status: Acute (3) Essential hypertension Status: Acute (4) Neoplasm of lung Status: Acute (5) CAD (coronary artery disease) Status: Chronic (6) COPD (chronic obstructive pulmonary disease) Status: Chronic (7) HHD (hypertensive heart disease) Status: Chronic (8) PAD (peripheral artery disease) Status: Chronic (9) Renal insufficiency Status: Chronic Exam Vital signs and Labs for Last 24 Hours: Temp Pulse Resp BP Pulse Ox 97.9 F 83 28 H 134/59 L 96 06/21/21 04:00 06/21/21 06:51 06/21/21 06:51 06/21/21 06:51 06/21/21 06:51 Laboratory Results - last 24 hr 06/19/21 20:33: Urine Color Yellow, Urine Appearance Clear, Urine pH 5.0, Ur Specific [place] 1.020, Urine Protein 2+, Urine Glucose (UA) Trace, Urine Ketones Negative, Urine Blood 1+, Urine Nitrate Negative, Urine Bilirubin Negative, Urine Urobilinogen 0.2, Ur Leukocyte Esterase Negative, Urine RBC 5- 10, Urine WBC 3-5, Ur Squamous Epith Cells 3-5, Urine Bacteria None 06/20/21 05:20: Hgb 9.4 L D 06/20/21 07:00: Specimen Source a line, O2 % 45, ABG pH 7.24 L*, ABG pCO2 51.8 H , ABG pO2 73.6 L, ABG HCO3 21.8 L, ABG Total CO2 23.3, ABG O2 Saturation 92, ABG Base Excess -5.6 L, 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 - Constitutional no acute distress - *Routine Respiratory Exam Comments: no obvious air leak
[2021-06-21 08:05] LABS: ABG Base Excess -5.6 mmol/L (-2.4-2.3); ABG Oxygen Saturation 91 % (90-100); ABG PCO2 45.3 mmhg (35.0-45.0); ABG PH 7.29 mmol/L (7.35-7.45); ABG PO2 67.5 mmhg (80-100); ABG TCO2 22.4 mmhg (23-27)
[2021-06-21 08:16] LABS: Oxygen 45 %; PEEP 5; Pressure Support 5; Source A-LINE
[2021-06-21 08:22] LABS: Lactate Arterial 1.6 mmol/L (0.4-2.0)
--- NOTE | 2021-06-21 08:52 | XR_ITS ---
FINAL REPORT CLINICAL HISTORY: abdominal distention FINDINGS: ABDOMEN SINGLE VIEW There are multiple air-filled bowel loops in a nonspecific pattern, favor an ileus. NG tube tip terminates in the fundus. Aortic stent graft is present. IMPRESSION: Favor an ileus. Reviewed, Interpreted and Dictated by Peewee Raymundo III, MD Transcribed by Diane Ward Authenticated by Peewee Raymundo III, MD on 06/21/2021 10:41:50 AM [facility]
--- NOTE | 2021-06-21 09:21 | HMH.PULMPN ---
Internal Medicine - PN: Subj *Date: 06/21/21 *Time: 13:09 Interval history: No acute respiratory events overnight. Patient awake following commands. Complaining of chest pain. Exam - Constitutional Constitutional:: Absent: no acute distress, comfortable - HENMT Exam HENMT: Present: normocephalic, atraumatic - Eye Exam Eyes:: Present: normal appearance both eyes and related structures - Neck Exam Neck:: Present: normal visual inspection - Respiratory Exam Respiratory:: Present: no respiratory distress. Absent: wheezing - Cardiovascular Exam Cardiac:: Present: S1, S2 - GI Exam GI:: Present: soft - Skin Exam Skin: Present: warm, no rash - Neurological Exam Neurological: Present: alert, awake - Extremities Exam Extremities: Present: no cyanosis, no clubbing, no edema Assessment and Plan (1) Pneumothorax, left Status: Acute Category: Medical Code(s): J93.9 - Pneumothorax, unspecified (2) Emphysema lung Status: Acute Category: Medical Code(s): J43.9 - Emphysema, unspecified (3) Essential hypertension Status: Acute Category: Medical Code(s): I10 - Essential (primary) hypertension (4) Neoplasm of lung Status: Acute Category: Medical Code(s): D49.1 - Neoplasm of unspecified behavior of respiratory system (5) CAD (coronary artery disease) Status: Chronic Qualifiers: Coronary Disease-Associated Artery/Lesion type: [place] artery [place] vs. transplanted heart: [place] heart Associated angina: without angina Qualified Code(s): I25.10 - Atherosclerotic heart disease of [place] coronary artery without angina pectoris Category: Medical Code(s): I25.10 - Atherosclerotic heart disease of [place] coronary artery without angina pectoris (6) COPD (chronic obstructive pulmonary disease) Status: Chronic Qualifiers: COPD type: unspecified COPD Qualified Code(s): J44.9 - Chronic obstructive pulmonary disease, unspecified Category: Medical Code(s): J44.9 - Chronic obstructive pulmonary disease, unspecified (7) HHD (hypertensive heart disease) Status: Chronic Qualifiers: Heart failure presence: unspecified whether heart failure present Qualified Code(s): I11.9 - Hypertensive heart disease without heart failure Category: Medical Code(s): I11.9 - Hypertensive heart disease without heart failure (8) PAD (peripheral artery disease) Status: Chronic Category: Medical Code(s): I73.9 - Peripheral vascular disease, unspecified (9) Renal insufficiency Status: Chronic Category: Medical Code(s): N28.9 - Disorder of kidney and ureter, unspecified - Assessment and plan all Dx Assessment and Plan for all problems:: #Acute hypoxic respiratory failure mechanical ventilatory support: # Shock: 81-yGreater than 71-[id number]-saod smoking history carries a diagnosis COPD, stage I lung cancer left upper lobe [place] Ca status post radiation completion currently under surveillance with most recent CT reported to have improving size of the nodule. Presented for an outpatient left heart cath catheterization needing mechanical ventilator support and pulmonary was called for ventilator management. Interval update: No acute respiratory events overnight. Patient continued to remain on minimal ventilator settings. Repeat echocardiogram no evidence of pericardial effusion Plan: -AnalgoSedation with propofol and fentanyl. No need for deep sedation. Successfully passed SBT. Following commands. We will proceed with extubation to NC. -Successfully passed SBT. Copious secretions. We will proceed with extubation. Strong cough reflex. Chest x-ray post intubation showing left upper lobe possible postradiation changes along with dense circular consolidation in the right lower lobe. No significant change in chest x-ray from today. ABG from this morning showed mild hypercarbia PCO2 45 with a p.o. dose of 1.29. -Continue DuoNebs every 6 hours scheduled. Add budesonide ever
--- NOTE | 2021-06-21 09:22 | HMH.PNCARD ---
Subjective Date: 06/21/21 Time: 09:22 Principal diagnosis: Coronary dissection, left pneumothorax Interval history: 81-year-old white male remains on ventilator. Sedation has been reduced and patient is alert and responsive. He is now breathing above the ventilator. He does get agitated/anxious due to discomfort from the chest tube and the intubation which prevents him from talking. He does indicate some abdominal discomfort. Blood pressure and heart rate were relatively well controlled overnight on esmolol but as patient's sedation has been decreased his heart rate has increased due to agitation. We will go up on the esmolol little higher to see if we can regain control of his heart rate. Surgery note reviewed with no evidence of air leak noted. Considering chest tube to waterseal later today. Exam Vital signs and Labs for Last 24 Hours: Temp Pulse Resp BP Pulse Ox 97.9 F 83 28 H 134/59 L 96 06/21/21 04:00 06/21/21 06:51 06/21/21 06:51 06/21/21 06:51 06/21/21 06:51 Laboratory Results - last 24 hr 06/19/21 20:33: Urine Color Yellow, Urine Appearance Clear, Urine pH 5.0, Ur Specific [place] 1.020, Urine Protein 2+, Urine Glucose (UA) Trace, Urine Ketones Negative, Urine Blood 1+, Urine Nitrate Negative, Urine Bilirubin Negative, Urine Urobilinogen 0.2, Ur Leukocyte Esterase Negative, Urine RBC 5-10, Urine WBC 3-5, Ur Squamous Epith Cells 3-5, Urine Bacteria None 06/20/21 05:20: Hgb 9.4 L D 06/20/21 17:35: POC Glucose 113 H 06/21/21 06:00: Specimen Source A-line, O2 % 45, ABG pH 7.29 L, ABG pCO2 45.3 H, ABG pO2 67.5 L, ABG HCO3 21.0 L, ABG Total CO2 22.4 L, ABG O2 Saturation 91, ABG Base Excess -5.6 L, Dat Test N/a, PEEP 5 06/21/21 08:20: ABG Lactate 1.6 I & O for Last 24 hours: Intake & Output 06/18/21 06/19/21 06/20/21 06/21/21 11:59 11:59 11:59 11:59 Intake Total 500 / 1000 5497.39 / 5497.39 1773.625 / 1773.625 Output Total 955 / 1030 657 / 657 Balance 500 / 1000 4542.39 / 4467.39 1116.625 / 1116.625 Weight 155 lb 171 lb 170 lb 15.989 oz - Constitutional mild distress - *Routine Respiratory Exam Present: patient mechanically ventilated Comments: Bubbling sound heard bilaterally - *Routine Abdominal Exam Present: distended. Absent: tenderness - *Routine Neurological Exam Present: alert Progress Note: A&P (1) Pneumothorax, left Status: Acute (2) Emphysema lung Status: Acute (3) Essential hypertension Status: Acute (4) Neoplasm of lung Status: Acute (5) CAD (coronary artery disease) Status: Chronic (6) COPD (chronic obstructive pulmonary disease) Status: Chronic (7) HHD (hypertensive heart disease) Status: Chronic (8) PAD (peripheral artery disease) Status: Chronic (9) Renal insufficiency Status: Chronic Assessment and Plan for All Diagnoses:: 1. 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 Continue aspirin and Brilinta. Per Dr. Day, will use Nipride gtt and esmolol gtt to keep SBP <140 mm Hg and HR <80 bpm. Also, PRN IV metoprolol if needed. Limited echo yesterday showed no pericardial effusion. 2. Pericardial effusion status post pericardiocentesis, drain was successfully removed yesterday. 3. Pneumothorax, left chest, treated successfully with chest tube. Appreciate surgery's help. 4. Mechanical intubation and ventilation in setting of COPD, appreciate pulmonary's help. Weaning trial in process. 5. Chronic anemia (in the range of 11-12) with expected drop secondary to bloody pericardial effusion. Patient did receive blood transfusion and FFP during the cardiac cath/code. 6. Chronic renal insufficiency, stage II, stable with creatinine 1.5 and GFR 45. Known right renal artery stenosis. 7. History of AAA status post endograft placement.
[2021-06-21 09:37] LABS: Basophils % 0.1 % (0.1-2.0); Eosinophils # 0.1 K/mm3 (0.0-0.4); Eosinophils % 1.1 % (0.1-12.0); Hematocrit 29.4 % (42.0-52.0); Hemoglobin 9.6 g/dL (14.1-18.0); Lymphocytes # 0.7 K/mm3 (0.7-4.5); Lymphocytes % 6.1 % (10-50); Mean Corpuscular HGB Conc 32.8 g/dL (31.8-35.4); Mean Corpuscular Hemoglobin 29.8 pg (27.0-31.2); Mean Platelet Volume 8.6 fl (7.4-10.4); Monocytes # 0.7 K/mm3 (0.1-1.0); Monocytes % 6.3 % (1.7-9.3); Neutrophils % 86.3 % (37.0-80.0); Platelet Count 95 K/mm3 (142-424); Red Blood Count 3.23 M/mm3 (4.60-6.20); Red Cell Distribution Width 18.1 % (11.5-17.5); White Blood Count 11.6 K/mm3 (4.8-10.8)
[2021-06-21 09:49] LABS: MANUAL DIFFERENTIAL MANUAL DIFFERENTIAL (MANUAL DIFF)
--- NOTE | 2021-06-21 11:47 | DIET.NUTRFU ---
Addendum entered by Emely Levy RD, LD 06/21/21 15:40: X-ray of abdomen showed favor ileus pt already has an NG tube in place which can be used for suction. IVF discontinued at this time. Will continue to monitor labs Original Note: Patient intubated, tying SBT possible extubate. Hydration currently provided by IVF. If unable to extubate start TF: goal rate of glucerna at 80ml/hr ATC providing 1840kcal and 77gm protein with 1569ml/day free water. Hx of DM with glucose at 101H. Will continue to follow prognosis.
[2021-06-21 12:19] LABS: Anion Gap 12.8 mEq/L (5-15); Blood Urea Nitrogen 29 mg/dl (9-20); Calcium 8.1 mg/dl (8.4-10.2); Carbon Dioxide 19 mmol/L (22.0-30.0); Chloride 110 mmol/L (98-107); Creatinine Clearance Estimated 44 mL/min (50-200); Estimated Glomerular Filt Rate 48 ml/min (>60); GFR (African American) 59 ML/MIN (>60); Glucose 98 mg/dl (74-100); Potassium 4.8 mmoL/L (3.5-5.1); Sodium 137 mmol/L (136-145)
--- NOTE | 2021-06-21 12:22 | PC.NURSE ---
Addendum entered by Kaleigh Daugherty RN 06/21/21 21:16: pt placed on lcws per dr hough telephone order at approx 1230 Original Note: 1130 Dr Day notified of reading or KUB. advised to notified surgeon involved in care. [address] Hough that pt had abdominal distention this am, results show favor ileus pt already has an NG tube in place.
[2021-06-21 12:40] LABS: Eosinophils % 1 % (0-3); Lymphocytes % 9 % (10-50); Monocytes % 5 % (2-9); Neutrophils % 84 % (42-76); Platelet Estimate Moderate Decrease; Total Cells Counted 100
[2021-06-21 12:41] LABS: Rouleaux 1+
--- NOTE | 2021-06-21 12:56 | HMH.ACPN2 ---
Internal Medicine - PN: Subj *Date: 06/21/21 *Time: 08:56 Interval history: 81-year-old male patient resting in bed with eyes open he is more alert today than yesterday, following commands can show appropriate sounds and left appropriate lower extremities. Sedation has been turned off for a moment for spontaneous breathing trial. Esmolol drip remains, bowel sounds sluggish Exam Vital signs and Labs for Last 24 Hours: Temp Pulse Resp BP Pulse Ox 98.5 F 80 28 H 134/59 L 96 06/21/21 08:00 06/21/21 12:00 06/21/21 06:51 06/21/21 06:51 06/21/21 11:00 Laboratory Results - last 24 hr 06/20/21 17:35: POC Glucose 113 H 06/21/21 06:00: Specimen Source A-line, O2 % 45, ABG pH 7.29 L, ABG pCO2 45.3 H, ABG pO2 67.5 L, ABG HCO3 21.0 L, ABG Total CO2 22.4 L, ABG O2 Saturation 91, ABG Base Excess -5.6 L, Dat Test N/a, PEEP 5 06/21/21 08:20: ABG Lactate 1.6 06/21/21 09:29: WBC 11.6 H D, RBC 3.23 L, Hgb 9.6 L, Hct 29.4 L, MCV 91.0, MCH 29.8, MCHC 32.8, RDW 18.1 H, Plt Count 95 L, MPV 8.6, Neut % (Auto) 86.3 H, Lymph % (Auto) 6.1 L, [place] % (Auto) 6.3, Eos % (Auto) 1.1, Baso % (Auto) 0.1, Neut # (Auto) 10.0 H, Lymph # (Auto) 0.7, [place] # (Auto) 0.7, Eos # (Auto) 0.1, Baso # (Auto) 0.0, Total Counted 100, Neutrophils % (Manual) 84 H, Band Neutrophils % 1.0, Lymphocytes % (Manual) 9 L, Monocytes % (Manual) 5, Eosinophils % (Manual) 1, Platelet Estimate Moderate decrease, [place]le[place] 1+ 06/21/21 09:29: Sodium 137, Potassium 4.8, Chloride 110 H, Carbon Dioxide 19 L, Anion Gap 12.8, BUN 29 H, Creatinine 1.40 H, Estimated Creat Clear 44, Estimated GFR 48 L, Est GFR ( Amer) 59, Glucose 98, Calcium 8.1 L I & O for Last 24 hours: Intake & Output 06/18/21 06/19/21 06/20/21 06/21/21 23:59 23:59 23:59 23:59 Intake Total 4145.39 / 4313.39 2815 / 2909.625 810.625 / 810.625 Output Total 375 / 425 1092 / 1112 145 / 145 Balance 3770.39 / 3888.39 1723 / 1797.625 665.625 / 665.625 Weight 171 lb 11.841 oz 171 lb 170 lb 13.732 oz - *Routine HEENT Exam Head: Present: normocephalic Eye: Present: EOMI ENT: Present: mucous membranes moist - *Routine Respiratory Exam Present: patient mechanically ventilated, CTA bilaterally - *Routine Cardiovascular Exam Present: irregularly irregular - *Routine Abdominal Exam Present: soft, distended - *Routine Extremities Exam Present: full ROM, pulses intact. Absent: cyanosis, clubbing - *Routine Skin Exam Present: wounds - *Routine Neurological Exam Present: alert - Routine Psychiatric Exam Present: unable to assess Assessment and Plan (1) Pneumothorax, left Status: Acute Category: Medical Code(s): J93.9 - Pneumothorax, unspecified (2) Emphysema lung Status: Acute Category: Medical Code(s): J43.9 - Emphysema, unspecified (3) Essential hypertension Status: Acute Category: Medical Code(s): I10 - Essential (primary) hypertension (4) Neoplasm of lung Status: Acute Category: Medical Code(s): D49.1 - Neoplasm of unspecified behavior of respiratory system (5) CAD (coronary artery disease) Status: Chronic Qualifiers: Coronary Disease-Associated Artery/Lesion type: [place] artery [place] vs. transplanted heart: [place] heart Associated angina: without angina Qualified Code(s): I25.10 - Atherosclerotic heart disease of [place] coronary artery without angina pectoris Category: Medical Code(s): I25.10 - Atherosclerotic heart disease of [place] coronary artery without angina pectoris (6) COPD (chronic obstructive pulmonary disease) Status: Chronic Qualifiers: COPD type: unspecified COPD Qualified Code(s): J44.9 - Chronic obstructive pulmonary disease, unspecified Category: Medical Code(s): J44.9 - Chronic obstructive pulmonary disease, unspecified (7) HHD (hypertensive heart disease) Status: Chronic Qualifiers: Heart failure presence: unspecified whether heart failure present Qualified Code(s): I11.9 - Hypertensive hear
[2021-06-21 20:03] LABS: POC Glucose,Bedside 109 (70-110)
--- NOTE | 2021-06-21 20:57 | PC.WOUNDNOTE ---
am skin assessment pic
--- NOTE | 2021-06-21 21:11 | PC.NURSE ---
late entry: pt was extubated by Callie Burgess at approx 1100. pt tolerated well. pt was and is noted to have brown malodorous sputum and oral cavity. pt has had repeated oral care by staff. following extubation pt has refused oral care. he does have yaunker suction for any sputum her may produce. pt is a/o x3. c/o pain with coughing. pt has drainage noted to dressing to chest tube. pressure dressing placed as needed. no bleeding noted from art line. pt iv in l wrist began to leak, new iv started at approx 1720. no new drainage noted to pericardial drain dressing (than what was present at beginning of shift. )
--- NOTE | 2021-06-21 21:20 | PC.NURSE ---
[address] Laguna to dc lr fluids fentanyl drip turned down to 12.5 mcg at 1000, dc at 1030
[2021-06-21 23:08] LABS: POC Glucose,Bedside 109 (70-110)
[2021-06-22] VITALS (36 sets, daily range): BP systolic 89–143; BP diastolic 45–103; PULSE 80–100; RESP 18–24; TEMP 36.4–37.4; O2SAT 88–100; BMI 22.6
--- NOTE | 2021-06-22 06:00 | XR_ITS ---
PROCEDURE INFORMATION: Exam: XR Chest Exam date and time: 06/22/2021 5:18 AM Age: 81 years old Clinical indication: Device placement; Ett placement (vent status); Patient HX: Recently extubated; Additional info: Intubated/post code TECHNIQUE: Imaging protocol: XR of the chest. Views: 1 view. COMPARISON: CR XR CHEST PORTABLE 06/21/2021 5:27 AM FINDINGS: Tubes, catheters and devices: Interval removal of endotracheal tube. Stable NG tube and left chest tube. Lungs: Stable patchy bilateral lower lung opacities. Pleural spaces: Unremarkable. No pleural effusion. No pneumothorax. Heart/Mediastinum: Unremarkable. No cardiomegaly. Bones/joints: Unremarkable. IMPRESSION: Aside from interval removal of endotracheal tube, essentially stable appearance compared to the previous day, with findings above.
[2021-06-22 06:22] LABS: Chloride 108 mmol/L (98-107)
[2021-06-22 06:23] LABS: Potassium 5.1 mmoL/L (3.5-5.1); Sodium 132 mmol/L (136-145)
[2021-06-22 06:25] LABS: Blood Urea Nitrogen 34 mg/dl (9-20); Creatinine Clearance Estimated 40 mL/min (50-200); Estimated Glomerular Filt Rate 45 ml/min (>60); GFR (African American) 54 ML/MIN (>60)
[2021-06-22 06:26] LABS: Anion Gap 8.1 mEq/L (5-15); Calcium 7.5 mg/dl (8.4-10.2); Carbon Dioxide 21 mmol/L (22.0-30.0); Glucose 95 mg/dl (74-100)
[2021-06-22 06:28] LABS: Basophils % 0.2 % (0.1-2.0); Eosinophils # 0.2 K/mm3 (0.0-0.4); Eosinophils % 1.7 % (0.1-12.0); Hematocrit 28.3 % (42.0-52.0); Lymphocytes # 0.7 K/mm3 (0.7-4.5); Lymphocytes % 8.5 % (10-50); Mean Corpuscular HGB Conc 31.8 g/dL (31.8-35.4); Mean Corpuscular Hemoglobin 29.3 pg (27.0-31.2); Mean Corpuscular Volume 92.1 fl (80-94); Monocytes # 0.6 K/mm3 (0.1-1.0); Neutrophils # 7.2 K/mm3 (1.8-7.8); Neutrophils % 82.6 % (37.0-80.0); Platelet Count 106 K/mm3 (142-424); Red Blood Count 3.07 M/mm3 (4.60-6.20); White Blood Count 8.8 K/mm3 (4.8-10.8)
--- NOTE | 2021-06-22 07:07 | PC.NURSE ---
pt has rested intermittently t/o shift, has been treated for pain with PRN medications, on 8L high flow oxygen, chest tube dressing reinforced this shift
--- NOTE | 2021-06-22 08:05 | HMH.PULMPN ---
Internal Medicine - PN: Subj *Date: 06/22/21 *Time: 10:45 Interval history: No acute respiratory vents overnight. Patient tolerating nasal cannula well, weaned to 6 L this morning. Denies any new respiratory complaints. Exam - Constitutional Constitutional:: Absent: no acute distress, comfortable - HENMT Exam HENMT: Present: normocephalic - Eye Exam Eyes:: Present: normal appearance both eyes and related structures - Neck Exam Neck:: Present: normal visual inspection - Respiratory Exam Respiratory:: Present: able to speak in complete sentences, respiratory distress, crackles. Absent: accessory muscle use, wheezing - Cardiovascular Exam Cardiac:: Present: S1, S2 - GI Exam GI:: Present: soft, distended - Skin Exam Skin: Present: warm, no rash - Neurological Exam Neurological: Present: alert, awake, normal cognition - Extremities Exam Extremities: Present: no cyanosis, no clubbing, edema Assessment and Plan (1) Pneumothorax, left Status: Acute Category: Medical Code(s): J93.9 - Pneumothorax, unspecified (2) Emphysema lung Status: Acute Category: Medical Code(s): J43.9 - Emphysema, unspecified (3) Essential hypertension Status: Acute Category: Medical Code(s): I10 - Essential (primary) hypertension (4) Neoplasm of lung Status: Acute Category: Medical Code(s): D49.1 - Neoplasm of unspecified behavior of respiratory system (5) CAD (coronary artery disease) Status: Chronic Qualifiers: Coronary Disease-Associated Artery/Lesion type: [place] artery [place] vs. transplanted heart: [place] heart Associated angina: without angina Qualified Code(s): I25.10 - Atherosclerotic heart disease of [place] coronary artery without angina pectoris Category: Medical Code(s): I25.10 - Atherosclerotic heart disease of [place] coronary artery without angina pectoris (6) COPD (chronic obstructive pulmonary disease) Status: Chronic Qualifiers: COPD type: unspecified COPD Qualified Code(s): J44.9 - Chronic obstructive pulmonary disease, unspecified Category: Medical Code(s): J44.9 - Chronic obstructive pulmonary disease, unspecified (7) HHD (hypertensive heart disease) Status: Chronic Qualifiers: Heart failure presence: unspecified whether heart failure present Qualified Code(s): I11.9 - Hypertensive heart disease without heart failure Category: Medical Code(s): I11.9 - Hypertensive heart disease without heart failure (8) PAD (peripheral artery disease) Status: Chronic Category: Medical Code(s): I73.9 - Peripheral vascular disease, unspecified (9) Renal insufficiency Status: Chronic Category: Medical Code(s): N28.9 - Disorder of kidney and ureter, unspecified - Assessment and plan all Dx Assessment and Plan for all problems:: #Acute hypoxic respiratory failure: # CAP: Mr. matos is a 81 Y/O greater than 82-aeus-piif smoking history carries a diagnosis COPD, stage I lung cancer left upper lobe [place] Ca status post radiation completion currently under surveillance with most recent CT reported to have improving size of the nodule. Presented for an outpatient left heart cath catheterization needing mechanical ventilator support and pulmonary was called for ventilator management. Patient has been on minimal ventilator settings since intubation. His clinical status gradually improved, her perform SBT successful yesterday and was extubated. He was weaned to nasal cannula. His respiratory status remained stable on 6 to 8 L nasal cannula. Sputum cultures no organisms. Chest x-ray from yesterday and today, the noted opacity in the right lower lobe improving. Noted to have new right-sided effusion. Signs of volume overload on chest x-ray. Chest tube in place, the left apical pneumothorax noted on chest x-ray from yesterday can no longer be appreciated on chest x-ray from this morning. 1+ lower extremity edema noted on examination today Plan: -
--- NOTE | 2021-06-22 08:25 | HMH.GSPN ---
Subjective Narrative: The patient has been extubated. No definitive pneumothorax noted on morning chest x-ray. No air leak noted. He is currently on nasogastric decompression for ileus. Progress Note: A&P (1) Pneumothorax, left Status: Acute Assessment and plan: Chest tube to waterseal (2) Emphysema lung Status: Acute (3) Essential hypertension Status: Acute (4) Neoplasm of lung Status: Acute (5) CAD (coronary artery disease) Status: Chronic (6) COPD (chronic obstructive pulmonary disease) Status: Chronic (7) HHD (hypertensive heart disease) Status: Chronic (8) PAD (peripheral artery disease) Status: Chronic (9) Renal insufficiency Status: Chronic (10) Ileus Status: Acute Assessment and plan: The cardiology service is planning to implement enemas. Continue serial abdominal exams and continue nasogastric decompression for now. Exam Vital signs and Labs for Last 24 Hours: Temp Pulse Resp BP Pulse Ox 98.5 F 89 18 125/61 95 06/22/21 04:00 06/22/21 07:00 06/22/21 07:00 06/22/21 07:00 06/22/21 07:00 Laboratory Results - last 24 hr 06/20/21 21:20: POC Glucose 109 06/21/21 09:29: WBC 11.6 H D, RBC 3.23 L, Hgb 9.6 L, Hct 29.4 L, MCV 91.0, MCH 29.8, MCHC 32.8, RDW 18.1 H, Plt Count 95 L, MPV 8.6, Neut % (Auto) 86.3 H, Lymph % (Auto) 6.1 L, [place] % (Auto) 6.3, Eos % (Auto) 1.1, Baso % (Auto) 0.1, Neut # (Auto) 10.0 H, Lymph # (Auto) 0.7, [place] # (Auto) 0.7, Eos # (Auto) 0.1, Baso # (Auto) 0.0, Total Counted 100, Neutrophils % (Manual) 84 H, Band Neutrophils % 1.0, Lymphocytes % (Manual) 9 L, Monocytes % (Manual) 5, Eosinophils % (Manual) 1, Platelet Estimate Moderate decrease, Rouleaux 1+ 06/21/21 09:29: Sodium 137, Potassium 4.8, Chloride 110 H, Carbon Dioxide 19 L, Anion Gap 12.8, BUN 29 H, Creatinine 1.40 H, Estimated Creat Clear 44, Estimated GFR 48 L, Est GFR ( Amer) 59, Glucose 98, Calcium 8.1 L 06/21/21 22:20: POC Glucose 109 06/22/21 05:45: WBC 8.8, RBC 3.07 L, Hgb 9.0 L, Hct 28.3 L, MCV 92.1, MCH 29.3, MCHC 31.8, RDW 18.0 H, Plt Count 106 L, MPV 9.0, Neut % (Auto) 82.6 H, Lymph % (Auto) 8.5 L, [place] % (Auto) 7.0, Eos % (Auto) 1.7, Baso % (Auto) 0.2, Neut # (Auto) 7.2, Lymph # (Auto) 0.7, [place] # (Auto) 0.6, Eos # (Auto) 0.2, Baso # (Auto) 0.0 06/22/21 05:45: Sodium 132 L, Potassium 5.1, Chloride 108 H, Carbon Dioxide 21 L, Anion Gap 8.1, BUN 34 H, Creatinine 1.50 H, Estimated Creat Clear 40, Estimated GFR 45 L, Est GFR ( Amer) 54 L, Glucose 95, Calcium 7.5 L I & O for Last 24 hours: Intake & Output 06/19/21 06/20/21 06/21/21 06/22/21 11:59 11:59 11:59 11:59 Intake Total 500 / 1000 5497.39 / 5497.39 2162.625 / 2355.625 1636.875 / 1636.875 Output Total 955 / 1030 772 / 832 1633 / 1633 Balance 500 / 1000 4542.39 / 4467.39 1390.625 / 1523.625 3.875 / 3.875 Weight 155 lb 171 lb 170 lb 13.732 oz 167 lb 8.821 oz Microbiology Reports for the Last 24 Hours: Microbiology 06/19/21 18:51 Nose - Nasal MRSA Culture - Final Negative 06/19/21 12:22 Sputum - Endotracheal Tube Aspirate Gram Stain - Final 06/19/21 12:22 Sputum - Endotracheal Tube Aspirate Sputum Culture - Final Normal Respiratory Kaylin 06/19/21 13:57 Blood Blood Culture - Preliminary NO GROWTH AFTER 48 HOURS 06/19/21 13:57 Blood Blood Culture - Preliminary NO GROWTH AFTER 48 HOURS - Constitutional chronically ill appearing - *Routine Respiratory Exam Comments: No air leak noted on Pleur-evac - *Routine Abdominal Exam Present: distended
--- NOTE | 2021-06-22 13:01 | DIET.NUTRFU ---
Patient has been extubated. Recommend advancing diet as tolerated and will monitor to see if supplementation would be beneficial. glucose running at 98, 95. Will continue to monitor.
--- NOTE | 2021-06-22 13:13 | HMH.ACPN2 ---
Internal Medicine - PN: Subj *Date: 06/22/21 *Time: 08:35 Interval history: extubated ng,chest tube and chawla in place alert Exam Vital signs and Labs for Last 24 Hours: Temp Pulse Resp BP Pulse Ox 98.5 F 86 18 125/61 95 06/22/21 04:00 06/22/21 11:36 06/22/21 07:00 06/22/21 07:00 06/22/21 07:00 Laboratory Results - last 24 hr 06/19/21 10:50: Crossmatch (AHG) See Detail 06/20/21 21:20: POC Glucose 109 06/21/21 22:20: POC Glucose 109 06/22/21 05:45: WBC 8.8, RBC 3.07 L, Hgb 9.0 L, Hct 28.3 L, MCV 92.1, MCH 29.3, MCHC 31.8, RDW 18.0 H, Plt Count 106 L, MPV 9.0, Neut % (Auto) 82.6 H, Lymph % (Auto) 8.5 L, [place] % (Auto) 7.0, Eos % (Auto) 1.7, Baso % (Auto) 0.2, Neut # (Auto) 7.2, Lymph # (Auto) 0.7, [place] # (Auto) 0.6, Eos # (Auto) 0.2, Baso # (Auto) 0.0 06/22/21 05:45: Sodium 132 L, Potassium 5.1, Chloride 108 H, Carbon Dioxide 21 L, Anion Gap 8.1, BUN 34 H, Creatinine 1.50 H, Estimated Creat Clear 40, Estimated GFR 45 L, Est GFR ( Amer) 54 L, Glucose 95, Calcium 7.5 L I & O for Last 24 hours: Intake & Output 06/20/21 06/21/21 06/22/21 06/23/21 11:59 11:59 11:59 11:59 Intake Total 5497.39 / 5497.39 2162.625 / 2355.625 1860.075 / 1860.075 Output Total 955 / 1030 772 / 832 1633 / 1633 Balance 4542.39 / 4467.39 1390.625 / 1523.625 227.075 / 227.075 Weight 171 lb 170 lb 13.732 oz 167 lb 8.821 oz Microbiology Reports for the Last 24 Hours: Microbiology 06/19/21 18:51 Nose - Nasal MRSA Culture - Final Negative 06/19/21 12:22 Sputum - Endotracheal Tube Aspirate Gram Stain - Final 06/19/21 12:22 Sputum - Endotracheal Tube Aspirate Sputum Culture - Final Normal Respiratory Kaylin 06/19/21 13:57 Blood Blood Culture - Preliminary NO GROWTH AFTER 48 HOURS 06/19/21 13:57 Blood Blood Culture - Preliminary NO GROWTH AFTER 48 HOURS - Constitutional no acute distress - *Routine HEENT Exam Head: Present: normocephalic Eye: Present: PERRL ENT: Present: mucous membranes moist - *Routine Neck Exam Present: supple. Absent: lymphadenopathy - *Routine Respiratory Exam Present: crackles Comments: rales - *Routine Cardiovascular Exam Present: RRR - *Routine Abdominal Exam Present: soft. Absent: tenderness Comments: hypo bs - *Routine Extremities Exam Absent: cyanosis, clubbing, edema - *Routine Skin Exam Present: warm. Absent: rash Comments: chest tube dressing c/d/i - *Routine Neurological Exam Present: alert Assessment and Plan (1) Pneumothorax, left Status: Acute Category: Medical Code(s): J93.9 - Pneumothorax, unspecified chest tube in place (2) Emphysema lung Status: Acute Category: Medical Code(s): J43.9 - Emphysema, unspecified (3) Essential hypertension Status: Acute Category: Medical Code(s): I10 - Essential (primary) hypertension (4) Neoplasm of lung Status: Acute Category: Medical Code(s): D49.1 - Neoplasm of unspecified behavior of respiratory system (5) CAD (coronary artery disease) Status: Chronic Qualifiers: Coronary Disease-Associated Artery/Lesion type: [place] artery [place] vs. transplanted heart: [place] heart Associated angina: without angina Qualified Code(s): I25.10 - Atherosclerotic heart disease of [place] coronary artery without angina pectoris Category: Medical Code(s): I25.10 - Atherosclerotic heart disease of [place] coronary artery without angina pectoris (6) COPD (chronic obstructive pulmonary disease) Status: Chronic Qualifiers: COPD type: unspecified COPD Qualified Code(s): J44.9 - Chronic obstructive pulmonary disease, unspecified Category: Medical Code(s): J44.9 - Chronic obstructive pulmonary disease, unspecified (7) HHD (hypertensive heart disease) Status: Chronic Qualifiers: Heart failure presence: unspecified whether he
--- NOTE | 2021-06-22 13:33 | HMH.PNCARD ---
Subjective Date: 06/22/21 Time: 13:33 Principal diagnosis: Coronary dissection, left pneumothorax Interval history: 81-year-old white male in bed initially sleeping. Abdomen seems a little less distended today. Patient still has significant amount of pain when awake. Heart rate and blood pressure are controlled currently on esmolol drip. He continues to receive aspirin and Brilinta rectally. Discussed with Dr. Cobos and will initiate enemas as part of the treatment for his ileus. Exam Vital signs and Labs for Last 24 Hours: Temp Pulse Resp BP Pulse Ox 98.5 F 86 18 125/61 95 06/22/21 04:00 06/22/21 11:36 06/22/21 07:00 06/22/21 07:00 06/22/21 07:00 Laboratory Results - last 24 hr 06/19/21 10:50: Crossmatch (AHG) See Detail 06/20/21 21:20: POC Glucose 109 06/21/21 22:20: POC Glucose 109 06/22/21 05:45: WBC 8.8, RBC 3.07 L, Hgb 9.0 L, Hct 28.3 L, MCV 92.1, MCH 29.3, MCHC 31.8, RDW 18.0 H, Plt Count 106 L, MPV 9.0, Neut % (Auto) 82.6 H, Lymph % (Auto) 8.5 L, [place] % (Auto) 7.0, Eos % (Auto) 1.7, Baso % (Auto) 0.2, Neut # (Auto) 7.2, Lymph # (Auto) 0.7, [place] # (Auto) 0.6, Eos # (Auto) 0.2, Baso # (Auto) 0.0 06/22/21 05:45: Sodium 132 L, Potassium 5.1, Chloride 108 H, Carbon Dioxide 21 L, Anion Gap 8.1, BUN 34 H, Creatinine 1.50 H, Estimated Creat Clear 40, Estimated GFR 45 L, Est GFR ( Amer) 54 L, Glucose 95, Calcium 7.5 L I & O for Last 24 hours: Intake & Output 06/20/21 06/21/21 06/22/21 06/23/21 11:59 11:59 11:59 11:59 Intake Total 5497.39 / 5497.39 2162.625 / 2355.625 1860.075 / 1860.075 Output Total 955 / 1030 772 / 832 1633 / 1633 Balance 4542.39 / 4467.39 1390.625 / 1523.625 227.075 / 227.075 Weight 171 lb 170 lb 13.732 oz 167 lb 8.821 oz Microbiology Reports for the Last 24 Hours: Microbiology 06/19/21 18:51 Nose - Nasal MRSA Culture - Final Negative 06/19/21 12:22 Sputum - Endotracheal Tube Aspirate Gram Stain - Final 06/19/21 12:22 Sputum - Endotracheal Tube Aspirate Sputum Culture - Final Normal Respiratory Kaylin 06/19/21 13:57 Blood Blood Culture - Preliminary NO GROWTH AFTER 48 HOURS 06/19/21 13:57 Blood Blood Culture - Preliminary NO GROWTH AFTER 48 HOURS - *Routine Respiratory Exam Present: rhonchi Comments: Bubbling sounds heard bilaterally. Chest tube left chest - *Routine Cardiovascular Exam Present: RRR - *Routine Extremities Exam Absent: cyanosis, clubbing, edema - *Routine Neurological Exam Present: alert Progress Note: A&P (1) Pneumothorax, left Status: Acute (2) Emphysema lung Status: Acute (3) Essential hypertension Status: Acute (4) Neoplasm of lung Status: Acute (5) CAD (coronary artery disease) Status: Chronic (6) COPD (chronic obstructive pulmonary disease) Status: Chronic (7) HHD (hypertensive heart disease) Status: Chronic (8) PAD (peripheral artery disease) Status: Chronic (9) Renal insufficiency Status: Chronic Assessment and Plan for All Diagnoses:: 1. 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 Continue aspirin and Brilinta. Per Dr. Day, will use Nipride gtt and esmolol gtt to keep SBP <140 mm Hg and HR <80 bpm. Also, PRN IV metoprolol if needed. Limited echo showed no pericardial effusion and pericardial drain was removed 06/20/2021. 2. Pericardial effusion status post pericardiocentesis, drain was successfully removed. 3. Pneumothorax, left chest, treated successfully with chest tube. Appreciate surgery's help. 4. COPD, pulmonary help appreciated. Patient is now extubated since yesterday. 5. Chronic anemia (in the range of 11-12) with expected drop secondary to bloody pericardial effusion. Patient did receive blood transfusion and FFP during the cardia
--- NOTE | 2021-06-22 14:00 | XR_ITS ---
FINAL REPORT TECHNIQUE: Single view chest CLINICAL HISTORY: chest tube on water seal COMPARISON: One day prior FINDINGS: A single view of the chest was obtained. The heart is enlarged.. A left chest tube and NG tube are in place. There is bibasilar atelectasis or pneumonia as well as a left upper lobe opacity. There is a very small but improved, left superolateral pneumothorax with 4 mm of pleural separation. A skin fold is noted over the right thorax. IMPRESSION: Improved left pneumothorax. Otherwise, no significant interval change. Reviewed, Interpreted and Dictated by Peewee Raymundo III, MD Transcribed by Mare Hines Authenticated by Peewee Raymundo III, MD on 06/22/2021 04:03:36 PM [facility]
--- NOTE | 2021-06-22 19:17 | PC.WOUNDNOTE ---
skin on bottom skin on pt back under chest tube dressing that was removed r/t being soiled. assessment pic by adrianne arenas, loaded by adrianne zarate
--- NOTE | 2021-06-22 20:46 | PC.NURSE ---
patient has done okay this shift. two enemas given this shift no results noted. patient will answer questions one worded but is mostly moaning and crying out. when asked where pain is he states his chest. has required pain medication frequently. esmolol remains at the current rate of 120 mcg/kg/min. heart rate has remained in the 80s. systolic has remained less than 140. when asleep at times noted a lower bp but this would rebound back up with no issues noted. edema to bilateral arms and noted some to scrotal area. rectally given the brilinta and aspirin. chest tube to water seal with 60ml out. redressed the chest tube this shift. patient yells out during turns but was turned frequently no breakdown to bottom noted. did have some areas on back that look like blistered areas, that were under the tape. attempted to use less tape with the redressing of the chest tube. family did visit with patient.
[2021-06-23] VITALS (28 sets, daily range): BP systolic 52–178; BP diastolic 26–94; PULSE 79–132; RESP 5–50; TEMP 36–37.5; O2SAT 89–100; BMI 23.1
--- NOTE | 2021-06-23 01:11 | PC.NURSE ---
He is A&Ox3 with some confusion. He has been moaning frequently and has received PRN medication for pain. ART line is patent. He moves frequently and it is difficult to keep it in the proper position. Left chest tube in place. Chest tube became saturated and was changed via sterile technique. He continues on 8liters high flow. No BM thus far this shift. F/c patent with yellow, clear urine. He is being turned and repositioned q 2 hours.
--- NOTE | 2021-06-23 06:00 | XR_ITS ---
PROCEDURE INFORMATION: Exam: XR Chest Exam date and time: 06/23/2021 5:55 AM Age: 81 years old Clinical indication: Device placement; Other: Chest tube; Additional info: Intubated/post code also has chest tube TECHNIQUE: Imaging protocol: XR of the chest. Views: 1 view. COMPARISON: CR XR CHEST PORTABLE 06/22/2021 1:59 PM FINDINGS: Tubes, catheters and devices: Thoracostomy tube terminates in the medial aspect of the left hemithorax. Enteric tube is seen within the stomach. The tip is not identified Lungs: Hyperexpanded lung love consistent with COPD. Opacities in the left upper lobe in the right base may represent atelectasis or pneumonia. Pleural spaces: Unremarkable. No pleural effusion. No pneumothorax. Heart/Mediastinum: Stable cardiac silhouette Bones/joints: Unremarkable. IMPRESSION: 1. Thoracostomy tube terminates in the medial aspect of the left hemithorax. 2. Hyperexpanded lung love consistent with COPD. 3. Opacities in the left upper lobe in the right base may represent atelectasis or pneumonia.
--- NOTE | 2021-06-23 06:08 | PC.NURSE ---
Pt dislodged ART line. Catheter tip intact. MD stoneworker notified.
[2021-06-23 07:19] LABS: Basophils % 0.2 % (0.1-2.0); Eosinophils # 0.1 K/mm3 (0.0-0.4); Eosinophils % 0.9 % (0.1-12.0); Hematocrit 28.1 % (42.0-52.0); Hemoglobin 8.9 g/dL (14.1-18.0); Lymphocytes # 0.6 K/mm3 (0.7-4.5); Lymphocytes % 7.8 % (10-50); Mean Corpuscular HGB Conc 31.8 g/dL (31.8-35.4); Mean Corpuscular Hemoglobin 29.1 pg (27.0-31.2); Mean Corpuscular Volume 91.5 fl (80-94); Mean Platelet Volume 8.6 fl (7.4-10.4); Monocytes # 0.7 K/mm3 (0.1-1.0); Monocytes % 9.1 % (1.7-9.3); Platelet Count 118 K/mm3 (142-424); Red Blood Count 3.07 M/mm3 (4.60-6.20); White Blood Count 7.4 K/mm3 (4.8-10.8)
[2021-06-23 07:40] LABS: Chloride 109 mmol/L (98-107); Potassium 4.4 mmoL/L (3.5-5.1); Sodium 136 mmol/L (136-145)
[2021-06-23 07:43] LABS: Anion Gap 11.4 mEq/L (5-15); Blood Urea Nitrogen 36 mg/dl (9-20); Carbon Dioxide 20 mmol/L (22.0-30.0); Creatinine Clearance Estimated 44 mL/min (50-200); Estimated Glomerular Filt Rate 48 ml/min (>60); GFR (African American) 59 ML/MIN (>60)
[2021-06-23 07:44] LABS: Calcium 7.6 mg/dl (8.4-10.2); Glucose 91 mg/dl (74-100)
--- NOTE | 2021-06-23 08:15 | PC.NURSE ---
HR 130s and BP 80s/40s. EKG obtained and Dr. Day called. He ordered to start a Salomón gtt, Amio bolus, and Amio maintenance gtt. Dr. Hough @ BS and pulled left chest tube. Pt has been hollering out since I arrived. Pt not following commands nor is he A&O.
--- NOTE | 2021-06-23 08:55 | ECG_ITS ---
APPROVED REPORT Exam: Resting ECG HR:119 bpm ECG Measurements Heart Rate 119 AXES QRSd 149 QRS 89 QT 320 T 7 QTc 391 Conclusion ATRIAL FIBRILLATION WITH RAPID VENTRICULAR RESPONSE INTRAVENTRICULAR CONDUCTION DELAY [130+ ms QRS DURATION] ABNORMAL ECG UNCONFIRMED REPORT Electronically signed by : Karthik Arce MD 06/24/2021 09:06:33
--- NOTE | 2021-06-23 09:05 | PC.NURSE ---
Amio bolus started.
--- NOTE | 2021-06-23 09:10 | PC.NURSE ---
Salomón gtt started @ 20mcg/min
--- NOTE | 2021-06-23 09:15 | PC.NURSE ---
Amio maintenance gtt started @ 1mg/min
--- NOTE | 2021-06-23 09:50 | HMH.GSPN ---
Subjective Narrative: Per nursing, the patient has had a decline in overall condition (tachycardia/hypotension). He is no longer alert and oriented. His respiratory status has remained fairly stable since extubation. Progress Note: A&P (1) Pneumothorax, left Status: Acute Assessment and plan: No pneumothorax appreciable on morning films. Chest tube removed Follow-up chest x-ray ordered (2) Emphysema lung Status: Acute (3) Essential hypertension Status: Acute (4) Neoplasm of lung Status: Acute (5) CAD (coronary artery disease) Status: Chronic (6) COPD (chronic obstructive pulmonary disease) Status: Chronic (7) HHD (hypertensive heart disease) Status: Chronic (8) PAD (peripheral artery disease) Status: Chronic (9) Renal insufficiency Status: Chronic Exam Vital signs and Labs for Last 24 Hours: Temp Pulse Resp BP Pulse Ox 97.3 F L 125 H 22 97/63 L 100 06/23/21 08:00 06/23/21 08:00 06/23/21 08:00 06/23/21 08:00 06/23/21 08:00 Laboratory Results - last 24 hr 06/19/21 10:50: Crossmatch (AHG) See Detail 06/23/21 06:41: WBC 7.4, RBC 3.07 L, Hgb 8.9 L, Hct 28.1 L, MCV 91.5, MCH 29.1, MCHC 31.8, RDW 18.0 H, Plt Count 118 L, MPV 8.6, Neut % (Auto) 82.0 H, Lymph % (Auto) 7.8 L, [place] % (Auto) 9.1, Eos % (Auto) 0.9, Baso % (Auto) 0.2, Neut # (Auto) 6.0, Lymph # (Auto) 0.6 L, [place] # (Auto) 0.7, Eos # (Auto) 0.1, Baso # (Auto) 0.0 06/23/21 06:41: Sodium 136, Potassium 4.4, Chloride 109 H, Carbon Dioxide 20 L, Anion Gap 11.4, BUN 36 H, Creatinine 1.40 H, Estimated Creat Clear 44, Estimated GFR 48 L, Est GFR ( Amer) 59, Glucose 91, Calcium 7.6 L I & O for Last 24 hours: Intake & Output 06/20/21 06/21/21 06/22/21 04/09/22 11:59 11:59 11:59 11:59 Intake Total 5497.39 / 5497.39 2162.625 / 2355.625 2080.075 / 2146.075 1751.850 / 1751.850 Output Total 955 / 1030 772 / 832 1865 / 1940 1415 / 1415 Balance 4542.39 / 4467.39 1390.625 / 1523.625 215.075 / 206.075 336.850 / 336.850 Weight 171 lb 170 lb 13.732 oz 167 lb 8.821 oz 170 lb 6.4 oz Microbiology Reports for the Last 24 Hours: Microbiology 06/19/21 18:51 Nose - Nasal MRSA Culture - Final Negative 06/19/21 12:22 Sputum - Endotracheal Tube Aspirate Gram Stain - Final 06/19/21 12:22 Sputum - Endotracheal Tube Aspirate Sputum Culture - Final Normal Respiratory Kaylin - Constitutional chronically ill appearing, agitated - *Routine Respiratory Exam Comments: No air leak noted on chest tube - *Routine Cardiovascular Exam Present: tachycardia - *Routine Abdominal Exam Present: soft Comments: Less distended
--- NOTE | 2021-06-23 11:34 | HMH.ACPN2 ---
Internal Medicine - PN: Subj *Date: 06/23/21 *Time: 11:38 Interval history: Chest tube out left. Extubated. No longer alert. Dislodged art line. Monitor=aflutter Will start amiodarone. Cardiology may cardiovert tomorrow. Salomón on board. Exam Vital signs and Labs for Last 24 Hours: Temp Pulse Resp BP Pulse Ox 97.3 F L 115 H 22 97/63 L 97 06/23/21 08:00 06/23/21 10:32 06/23/21 08:00 06/23/21 08:00 06/23/21 10:32 Laboratory Results - last 24 hr 06/23/21 06:41: WBC 7.4, RBC 3.07 L, Hgb 8.9 L, Hct 28.1 L, MCV 91.5, MCH 29.1, MCHC 31.8, RDW 18.0 H, Plt Count 118 L, MPV 8.6, Neut % (Auto) 82.0 H, Lymph % (Auto) 7.8 L, [place] % (Auto) 9.1, Eos % (Auto) 0.9, Baso % (Auto) 0.2, Neut # (Auto) 6.0, Lymph # (Auto) 0.6 L, [place] # (Auto) 0.7, Eos # (Auto) 0.1, Baso # (Auto) 0.0 06/23/21 06:41: Sodium 136, Potassium 4.4, Chloride 109 H, Carbon Dioxide 20 L, Anion Gap 11.4, BUN 36 H, Creatinine 1.40 H, Estimated Creat Clear 44, Estimated GFR 48 L, Est GFR ( Amer) 59, Glucose 91, Calcium 7.6 L I & O for Last 24 hours: Intake & Output 06/20/21 06/21/21 06/22/21 06/23/21 23:59 23:59 23:59 23:59 Intake Total 2815 / 2909.625 1980.625 / 2025.625 2115.600 / 2115.600 1112.575 / 1112.575 Output Total 1092 / 1112 1641 / 1671 974 / 974 950 / 950 Balance 1723 / 1797.625 340.625 / 862.878 9801.600 / 1141.600 162.575 / 162.575 Weight 171 lb 170 lb 13.732 oz 167 lb 8.821 oz 170 lb 6.4 oz Microbiology Reports for the Last 24 Hours: Microbiology 06/19/21 18:51 Nose - Nasal MRSA Culture - Final Negative 06/19/21 12:22 Sputum - Endotracheal Tube Aspirate Gram Stain - Final 06/19/21 12:22 Sputum - Endotracheal Tube Aspirate Sputum Culture - Final Normal Respiratory Kaylin - Constitutional chronically ill appearing, agitated - *Routine HEENT Exam Head: Present: normocephalic Eye: Present: EOMI, PERRL ENT: Present: mucous membranes moist - *Routine Neck Exam Present: supple. Absent: lymphadenopathy - *Routine Respiratory Exam Present: distant breath sounds. Absent: accessory muscle use, respiratory distress - *Routine Cardiovascular Exam Present: tachycardia, irregular rhythm - *Routine Abdominal Exam Present: soft, normoactive bowel sounds. Absent: tenderness, mass - *Routine Extremities Exam Absent: cyanosis - *Routine Skin Exam Present: warm. Absent: rash - *Routine Neurological Exam Absent: alert, oriented X3, normal speech Assessment and Plan (1) Pneumothorax, left Status: Acute Category: Medical Code(s): J93.9 - Pneumothorax, unspecified (2) Emphysema lung Status: Acute Category: Medical Code(s): J43.9 - Emphysema, unspecified (3) Essential hypertension Status: Acute Category: Medical Code(s): I10 - Essential (primary) hypertension (4) Neoplasm of lung Status: Acute Category: Medical Code(s): D49.1 - Neoplasm of unspecified behavior of respiratory system (5) CAD (coronary artery disease) Status: Chronic Qualifiers: Coronary Disease-Associated Artery/Lesion type: [place] artery [place] vs. transplanted heart: [place] heart Associated angina: without angina Qualified Code(s): I25.10 - Atherosclerotic heart disease of [place] coronary artery without angina pectoris Category: Medical Code(s): I25.10 - Atherosclerotic heart disease of [place] coronary artery without angina pectoris (6) COPD (chronic obstructive pulmonary disease) Status: Chronic Qualifiers: COPD type: unspecified COPD Qualified Code(s): J44.9 - Chronic obstructive pulmonary disease, unspecified Category: Medical Code(s): J44.9 - Chronic obstructive pulmonary disease, unspecified (7) HHD (hypertensive heart disease) Status: Chronic Qualifiers: Heart failure presence: unspecified whether heart failure present Qualified Code(s): I11.9 - Hypertensive heart disease without heart failure
--- NOTE | 2021-06-23 13:00 | XR_ITS ---
FINAL REPORT CLINICAL HISTORY: chesst tube removed FINDINGS: SINGLE VIEW CHEST. This exam was performed on June 23 and was submitted for interpretation on July 04, 2021. A nasogastric tube is present with the tip below the diaphragm. There is cardiomegaly. The mediastinum is unremarkable. There are bilateral pulmonary opacities which may represent atelectasis or pneumonia. There is no pneumothorax. IMPRESSION: Bilateral atelectasis or pneumonia. Reviewed, Interpreted and Dictated by Peewee Raymundo III, MD Transcribed by Genia Worley Authenticated by Peewee Raymundo III, MD on 07/04/2021 01:52:07 PM [facility]
--- NOTE | 2021-06-23 15:42 | XR_ITS ---
PROCEDURE INFORMATION: Exam: XR Chest Exam date and time: 06/23/2021 3:15 PM Age: 81 years old Clinical indication: Screening exam; Other screening; Additional info: Tube placement-vent TECHNIQUE: Imaging protocol: XR of the chest. Views: 1 view. COMPARISON: CR XR CHEST PORTABLE 06/23/2021 1:13 PM FINDINGS: Tubes, catheters and devices: Endotracheal tube terminates 4 cm above the vivek. Enteric tube courses toward the stomach Lungs: Opacities in the right base and left upper lobe may represent atelectasis or pneumonia.. Pleural spaces: Unremarkable. No pleural effusion. No pneumothorax. Heart/Mediastinum: Unremarkable. No cardiomegaly. Bones/joints: Unremarkable. IMPRESSION: Opacities in the right base and left upper lobe may represent atelectasis or pneumonia..
--- NOTE | 2021-06-23 15:42 | PC.NURSE ---
Addendum entered by Maryjane Humphrey RN 06/23/21 16:15: Pt also on Amio gtt @ 1mg/min and Esmolol gtt @ 120mcg/kg/min. Both gtts for heart rate. Original Note: 1445: BP 85/53. Aflutter rate 80s. 1503: BP 52/26. Aflutter uncontrolled with rate 130s on monitor. @ BS. Increased [place] gtt to 100mcg/min. Aflutter quickly escalated to an agonal rythm with agonal breathing. Code blue called and CPR initiated. Dr. Day notified. 1505: Epi 1mg given. Pulse check. No pulse. CPR resumed. 1507: pulse check. Femoral pulse palpable. 1510: pt intubated by Dr. Matthews. 7.5 ETT 22 @ lip. Vent settings: AC 70% 440 20 5/- 1515: BP 157/94 and Aflutter with rate 110 on tele. 1519: Dr. Arce (oncall from Dr. Hudson) notified. Received new orders for Propofol gtt and Fentanyl gtt.
[2021-06-23 15:57] LABS: Lactate Arterial 2.3 mmol/L (0.4-2.0)
[2021-06-23 15:59] LABS: ABG PCO2 42.7 mmhg (35.0-45.0); ABG PH 7.21 mmol/L (7.35-7.45)
[2021-06-23 16:00] LABS: ABG Base Excess -11.1 mmol/L (-2.4-2.3); ABG HCO3 16.7 mmhg (22.0-26.0); ABG Oxygen Saturation 98 % (90-100); ABG PO2 131.6 mmhg (80-100); Allen's Test acceptable; Oxygen 70% %; PEEP 5; Tidal Volume 440; Vent Rate 20
--- NOTE | 2021-06-23 16:51 | PC.NURSE ---
Amio decreased to 0.5mg/min per protocol
--- NOTE | 2021-06-23 17:11 | P.PCN_ITS ---
[facility] Procedure Note Procedure Note:: I responded to a CODE BLUE on the second floor. When I arrived in the room the patient was undergoing CPR. He had recently undergone cardiac catheterization which resulted in a rupture of one of the coronary arteries. He developed a cardiac tamponade at the time. He is a full code. The patient was unres ponsive. I entered the room CPR was held after he had received 1 mg of epinephrine. The monitor showed cardiac activity. A pulse was palpable. The patient was unresponsive. Since the patient was unable to maintain an airway, I proceeded to intubate the patient. To intubate the patient he was preventilated with 100% oxygen. The vocal cords were visualized with a #4 straight blade. A 7.5 mm endotracheal tube was passed through the vocal cords under direct visualization. The cuff was inflated at 22 cm from the lip. Lateral breath sounds were audible post intubation. The patient's oxygen saturations were 97% after intubation. A CO2 detector turned from purple to yellow indicating exhalation of CO2 through the endotracheal tube. Advised the nursing staff to resume the patient's prior ventilation/ventilator orders. A chest x-ray has been obtained to confirm endotracheal tube placement. Shows the endotracheal tube at 4 cm above the vivek.
--- NOTE | 2021-06-23 18:15 | PC.NURSE ---
pt on a vent rate of 20 and has not overbreathed since initiation @ 1510 today. No nonverbal signs of pain noted. Fentanyl gtt not started.
[2021-06-24] VITALS (33 sets, daily range): BP systolic 77–118; BP diastolic 49–85; PULSE 80–120; RESP 12–23; TEMP 36.4–37.6; O2SAT 96–100
[2021-06-24 07:20] LABS: Basophils % 0.4 % (0.1-2.0); Eosinophils # 0.2 K/mm3 (0.0-0.4); Eosinophils % 2.2 % (0.1-12.0); Hematocrit 28.3 % (42.0-52.0); Hemoglobin 9.3 g/dL (14.1-18.0); Lymphocytes # 1.3 K/mm3 (0.7-4.5); Lymphocytes % 13.7 % (10-50); Mean Corpuscular Hemoglobin 29.2 pg (27.0-31.2); Mean Corpuscular Volume 88.5 fl (80-94); Mean Platelet Volume 8.6 fl (7.4-10.4); Monocytes # 0.9 K/mm3 (0.1-1.0); Neutrophils # 7.1 K/mm3 (1.8-7.8); Neutrophils % 74.6 % (37.0-80.0); Platelet Count 185 K/mm3 (142-424); Red Cell Distribution Width 18.6 % (11.5-17.5); White Blood Count 9.5 K/mm3 (4.8-10.8)
[2021-06-24 07:25] LABS: Sodium 134 mmol/L (136-145)
[2021-06-24 07:28] LABS: Blood Urea Nitrogen 39 mg/dl (9-20); Creatinine Clearance Estimated 41 mL/min (50-200); Estimated Glomerular Filt Rate 45 ml/min (>60); GFR (African American) 54 ML/MIN (>60); Glucose 109 mg/dl (74-100)
[2021-06-24 07:36] LABS: Potassium 4.9 mmoL/L (3.5-5.1)
[2021-06-24 07:37] LABS: Calcium 8.5 mg/dl (8.4-10.2); Chloride 105 mmol/L (98-107)
[2021-06-24 07:38] LABS: Anion Gap 15.9 mEq/L (5-15); Carbon Dioxide 18 mmol/L (22.0-30.0)
--- NOTE | 2021-06-24 07:42 | XR_ITS ---
PROCEDURE INFORMATION: Exam: XR Chest Exam date and time: 06/24/2021 9:04 AM Age: 81 years old Clinical indication: Other: Intubation; Additional info: Intubated TECHNIQUE: Imaging protocol: XR of the chest. Views: 1 view. COMPARISON: CR XR CHEST PORTABLE 06/23/2021 3:15 PM FINDINGS: Tubes, catheters and devices: Endotracheal tube terminates 2 cm above the vivek and could be withdrawn another 2 cm if desired.. Enteric tube is seen within the stomach Lungs: Hyperexpanded lung love consistent with COPD. Mild opacities in the right mid lung and both bases may represent atelectasis or pneumonia.. Pleural spaces: Unremarkable. No pleural effusion. No pneumothorax. Heart/Mediastinum: Stable cardiac silhouette Bones/joints: Unremarkable. IMPRESSION: 1. Endotracheal tube terminates 2 cm above the vivek and could be withdrawn another 2 cm if desired.. 2. Hyperexpanded lung love consistent with COPD. 3. Mild opacities in the right mid lung and both bases may represent atelectasis or pneumonia..
--- NOTE | 2021-06-24 09:40 | PC.NURSE ---
Amio gtt complete. Received call from Dr. Day with new order for Amiodarone 200mg po BID, start 1st dose now. Pt to received po med via NG tube. Dr. Day aware.
--- NOTE | 2021-06-24 10:00 | HMH.GSPN ---
Subjective Narrative: Patient reintubated during CODE BLUE yesterday. No definitive evidence of recurrent pneumothorax. Progress Note: A&P (1) Pneumothorax, left Status: Acute Assessment and plan: No definitive evidence of recurrent pneumothorax after reintubation yesterday. Continue management as per cardiology and primary service. (2) Emphysema lung Status: Acute (3) Essential hypertension Status: Acute (4) Neoplasm of lung Status: Acute (5) CAD (coronary artery disease) Status: Chronic (6) COPD (chronic obstructive pulmonary disease) Status: Chronic (7) HHD (hypertensive heart disease) Status: Chronic (8) PAD (peripheral artery disease) Status: Chronic (9) Renal insufficiency Status: Chronic Exam Vital signs and Labs for Last 24 Hours: Temp Pulse Resp BP Pulse Ox 98.6 F 102 H 12 79/53 L 98 06/24/21 08:00 06/24/21 08:00 06/24/21 08:56 06/24/21 08:00 06/24/21 08:56 Laboratory Results - last 24 hr 06/23/21 15:30: ABG Lactate 2.3 H 06/23/21 15:51: Specimen Source l radial, O2 % 70%, ABG pH 7.21 L*, ABG pCO2 42.7, ABG pO2 131.6 H, ABG HCO3 16.7 L, ABG Total CO2 18.0 L, ABG O2 Saturation 98, ABG Base Excess -11.1 L, Dat Test acceptable, Vent Rate 20, Tidal Volume 440, PEEP 5 06/24/21 07:05: WBC 9.5 D, RBC 3.20 L, Hgb 9.3 L, Hct 28.3 L, MCV 88.5, MCH 29.2, MCHC 33.0, RDW 18.6 H, Plt Count 185 D, MPV 8.6, Neut % (Auto) 74.6, Lymph % (Auto) 13.7, [place] % (Auto) 9.0, Eos % (Auto) 2.2, Baso % (Auto) 0.4, Neut # (Auto) 7.1, Lymph # (Auto) 1.3, [place] # (Auto) 0.9, Eos # (Auto) 0.2, Baso # (Auto) 0.0 06/24/21 07:05: Sodium 134 L, Potassium 4.9, Chloride 105, Carbon Dioxide 18 L, Anion Gap 15.9 H, BUN 39 H, Creatinine 1.50 H, Estimated Creat Clear 41, Estimated GFR 45 L, Est GFR ( Amer) 54 L, Glucose 109 H, Calcium 8.5 I & O for Last 24 hours: Intake & Output 06/21/21 06/22/21 06/23/21 06/24/21 11:59 11:59 11:59 11:59 Intake Total 2162.625 / 2355.625 2080.075 / 2146.075 1930.100 / 9825.766 7556.975 / 5229.975 Output Total 772 / 832 1865 / 1940 1440 / 1475 1005 / 1005 Balance 1390.625 / 1523.625 215.075 / 206.075 490.100 / 063.377 0310.975 / 4224.975 Weight 170 lb 13.732 oz 167 lb 8.821 oz 170 lb 6.4 oz Microbiology Reports for the Last 24 Hours: Microbiology 06/23/21 15:30 Sputum - Endotracheal Tube Aspirate Gram Stain - Final - Constitutional Comments: Intubated/sedated - *Routine Respiratory Exam Present: patient mechanically ventilated - *Routine Cardiovascular Exam Present: tachycardia
[2021-06-24 11:07] LABS: ABG Base Excess -8.8 mmol/L (-2.4-2.3); ABG HCO3 17.3 mmhg (22.0-26.0); ABG Oxygen Saturation 97 % (90-100); ABG PCO2 34.6 mmhg (35.0-45.0); ABG PH 7.32 mmol/L (7.35-7.45); ABG PO2 101.1 mmhg (80-100); ABG TCO2 18.4 mmhg (23-27)
[2021-06-24 11:10] LABS: Oxygen 50% %; PEEP 5; Tidal Volume 440; Vent Rate 20
[2021-06-24 11:11] LABS: Allen's Test acceptable; Source Left Radial
--- NOTE | 2021-06-24 11:48 | HMH.ACPN2 ---
Internal Medicine - PN: Subj *Date: 06/24/21 *Time: 11:48 Interval history: Events of yesterday noted. The patient coded, received 1 round of epi, 1 round of CPR and subsequently reintubated. Current vent settings and FiO2 of 50% rate of 20 volume 440 and 5 of PEEP. Blood gases have looked very good on the settings. Patient remains in atrial flutter. Deodorant drip has been transitioned to 200 mg p.o. twice daily Patient remains sedated on a propafenone drip. [place]-Synephrine is infusing as well as esmolol. Exam Vital signs and Labs for Last 24 Hours: Temp Pulse Resp BP Pulse Ox 98.6 F 113 H 20 118/78 100 06/24/21 08:00 06/24/21 11:00 06/24/21 11:00 06/24/21 11:00 06/24/21 11:00 Laboratory Results - last 24 hr 06/23/21 15:30: ABG Lactate 2.3 H 06/23/21 15:51: Specimen Source l radial, O2 % 70%, ABG pH 7.21 L*, ABG pCO2 42.7, ABG pO2 131.6 H, ABG HCO3 16.7 L, ABG Total CO2 18.0 L, ABG O2 Saturation 98, ABG Base Excess -11.1 L, Dat Test acceptable, Vent Rate 20, Tidal Volume 440, PEEP 5 06/24/21 07:05: WBC 9.5 D, RBC 3.20 L, Hgb 9.3 L, Hct 28.3 L, MCV 88.5, MCH 29.2, MCHC 33.0, RDW 18.6 H, Plt Count 185 D, MPV 8.6, Neut % (Auto) 74.6, Lymph % (Auto) 13.7, [place] % (Auto) 9.0, Eos % (Auto) 2.2, Baso % (Auto) 0.4, Neut # (Auto) 7.1, Lymph # (Auto) 1.3, [place] # (Auto) 0.9, Eos # (Auto) 0.2, Baso # (Auto) 0.0 06/24/21 07:05: Sodium 134 L, Potassium 4.9, Chloride 105, Carbon Dioxide 18 L, Anion Gap 15.9 H, BUN 39 H, Creatinine 1.50 H, Estimated Creat Clear 41, Estimated GFR 45 L, Est GFR ( Amer) 54 L, Glucose 109 H, Calcium 8.5 06/24/21 10:06: Specimen Source Left radial, O2 % 50%, ABG pH 7.32 L, ABG pCO2 34.6 L, ABG pO2 101.1 H, ABG HCO3 17.3 L, ABG Total CO2 18.4 L, ABG O2 Saturation 97, ABG Base Excess -8.8 L, Dat Test acceptable, Vent Rate 20, Tidal Volume 440, PEEP 5 I & O for Last 24 hours: Intake & Output 06/21/21 06/22/21 06/23/21 06/24/21 23:59 23:59 23:59 23:59 Intake Total 1980.625 / 2025.625 2115.600 / 2115.600 3671.550 / 3671.550 2732 / 2732 Output Total 1641 / 1671 974 / 974 1380 / 1430 655 / 655 Balance 340.625 / 684.937 8275.600 / 5507.680 4566.550 / 2241.550 7 / 2077 Weight 170 lb 13.732 oz 167 lb 8.821 oz 170 lb 6.4 oz Microbiology Reports for the Last 24 Hours: Microbiology 06/23/21 15:30 Sputum - Endotracheal Tube Aspirate Gram Stain - Final - Constitutional obtunded - *Routine HEENT Exam Head: Present: normocephalic Eye: Present: EOMI, PERRL ENT: Present: mucous membranes moist - *Routine Neck Exam Present: supple. Absent: lymphadenopathy - *Routine Respiratory Exam Present: patient mechanically ventilated - *Routine Cardiovascular Exam Present: RRR, tachycardia, irregular rhythm - *Routine Abdominal Exam Present: soft, normoactive bowel sounds. Absent: tenderness - *Routine Extremities Exam Absent: cyanosis, clubbing, edema - *Routine Skin Exam Present: warm. Absent: rash - *Routine Neurological Exam Present: altered mental status. Absent: vision grossly intact, hearing grossly intact Assessment and Plan (1) Pneumothorax, left Status: Acute Category: Medical Code(s): J93.9 - Pneumothorax, unspecified (2) Emphysema lung Status: Acute Category: Medical Code(s): J43.9 - Emphysema, unspecified (3) Essential hypertension Status: Acute Category: Medical Code(s): I10 - Essential (primary) hypertension (4) Neoplasm of lung Status: Acute Category: Medical Code(s): D49.1 - Neoplasm of unspecified behavior of respiratory system (5) CAD (coronary artery disease) Status: Chronic Qualifiers: Coronary Disease-Associated Artery/Lesion type: [place] artery [place] vs. transplanted heart: [place] heart Associated angina: without angina Qualified Code(s): I25.10 - Atherosclerotic heart disease of [place] coronary artery without angina pectoris Category: Medical Code(s): I25.10 - Atherosclerotic heart disease of
--- NOTE | 2021-06-24 18:10 | PC.NURSE ---
shift summary: pt continues on the vent. Not overbreathing on a rate of 20. Propofol gtt @ 25mcg/kg/min. Will withdraw to pain. Aflutter with vent rate of 110s continues with Esmolol gtt @ 200mcg/kg/min. Normotensive with [place] gtt @ 60mcg/min. Dr. Hudson met with family @ 1pm. Family has decided to continue FULL CODE status @ this time.
--- NOTE | 2021-06-24 19:00 | PC.NURSE ---
RR in the 30s and pt bucking the vent. Propofol gtt increased to 50mcg/kg/min
[2021-06-24 20:09] LABS: POC Glucose,Bedside 119 (70-110)
[2021-06-25] VITALS (31 sets, daily range): BP systolic 81–118; BP diastolic 51–78; PULSE 105–118; RESP 20–33; TEMP 36.4–36.9; O2SAT 96–100; BMI 23.1
[2021-06-25 00:43] LABS: POC Glucose,Bedside 132 (70-110)
[2021-06-25 00:43] LABS: POC Glucose,Bedside 126 (70-110)
[2021-06-25 00:43] LABS: POC Glucose,Bedside 124 (70-110)
[2021-06-25 00:43] LABS: POC Glucose,Bedside 130 (70-110)
[2021-06-25 05:25] LABS: Basophils # 0.1 K/mm3 (0-0.2); Eosinophils # 0.2 K/mm3 (0.0-0.4); Eosinophils % 1.9 % (0.1-12.0); Hemoglobin 8.8 g/dL (14.1-18.0); Lymphocytes # 1.3 K/mm3 (0.7-4.5); Lymphocytes % 13.7 % (10-50); Mean Corpuscular HGB Conc 31.9 g/dL (31.8-35.4); Mean Corpuscular Hemoglobin 28.8 pg (27.0-31.2); Mean Corpuscular Volume 90.4 fl (80-94); Mean Platelet Volume 9.1 fl (7.4-10.4); Monocytes # 0.8 K/mm3 (0.1-1.0); Monocytes % 8.7 % (1.7-9.3); Neutrophils # 7.2 K/mm3 (1.8-7.8); Neutrophils % 74.7 % (37.0-80.0); Platelet Count 211 K/mm3 (142-424); Red Blood Count 3.04 M/mm3 (4.60-6.20); White Blood Count 9.6 K/mm3 (4.8-10.8)
[2021-06-25 05:29] LABS: Hematocrit 27.5 % (42.0-52.0)
[2021-06-25 05:44] LABS: Alanine Aminotransferase 178 U/L (12-78); Albumin Level 2.5 g/dl (3.5-5.0); Albumin/Globulin Ratio 0.9 (1.1-1.8); Alkaline Phosphatase 129 U/L (38-126); Anion Gap 7.5 mEq/L (5-15); Aspartate Amino Transferase 197 U/L (17-59); Bilirubin,Total 1.6 mg/dl (0.2-1.3); Blood Urea Nitrogen 35 mg/dl (9-20); Calcium 7.4 mg/dl (8.4-10.2); Carbon Dioxide 19 mmol/L (22.0-30.0); Chloride 108 mmol/L (98-107); Creatinine Clearance Estimated 47 mL/min (50-200); Estimated Glomerular Filt Rate 53 ml/min (>60); GFR (African American) 64 ML/MIN (>60); Globulin 2.8 g/dL (1.3-3.2); Glucose 110 mg/dl (74-100); Potassium 4.5 mmoL/L (3.5-5.1); Sodium 130 mmol/L (136-145); Total Protein,Serum 5.3 g/dl (6.3-8.2)
--- NOTE | 2021-06-25 06:00 | XR_ITS ---
PROCEDURE INFORMATION: Exam: XR Chest Exam date and time: 06/25/2021 6:08 AM Age: 81 years old Clinical indication: Device placement; Ett placement (vent status); Additional info: Daily while intubated TECHNIQUE: Imaging protocol: XR of the chest. Views: 1 view. COMPARISON: CR XR CHEST PORTABLE 06/24/2021 9:04 AM FINDINGS: Tubes, catheters and devices: ET tube nasogastric tube are unchanged. Lungs: Some patchy airspace changes are noted bilaterally. Pleural spaces: Right-sided pleural fluid or scarring is unchanged. Heart/Mediastinum: Unremarkable. No cardiomegaly. Bones/joints: Unremarkable. IMPRESSION: Centrally stable exam. Right-sided CP angle blunting is present which may be scarring or small effusion.
[2021-06-25 08:00] LABS: ABG Base Excess -11.2 mmol/L (-2.4-2.3); ABG HCO3 15.8 mmhg (22.0-26.0); ABG Oxygen Saturation 97 % (90-100); ABG PCO2 35.4 mmhg (35.0-45.0); ABG PH 7.27 mmol/L (7.35-7.45); ABG PO2 104.4 mmhg (80-100); ABG TCO2 16.9 mmhg (23-27)
[2021-06-25 08:02] LABS: Allen's Test Acceptable; Oxygen 50 %; PEEP 5; Source Right Radial; Tidal Volume 440; Vent Rate 20
--- NOTE | 2021-06-25 08:03 | HMH.PNCARD ---
Subjective Date: 06/25/21 Time: 08:03 Principal diagnosis: Coronary dissection, left pneumothorax Interval history: 81-year-old white male sedated, intubated on mechanical ventilation. Events of the weekend including code were reviewed. Patient remains on propofol drip for sedation, esmolol drip for rate control and [place]-Synephrine for blood pressure support. He is on oral amiodarone (after IV amiodarone loading) due to atrial flutter over the weekend. Chest tube was removed over the weekend. Patient dislodged his art line site was subsequently removed also. Exam Vital signs and Labs for Last 24 Hours: Temp Pulse Resp BP Pulse Ox 99.6 F 114 H 20 86/57 L 97 06/24/21 20:00 06/25/21 07:00 06/25/21 07:00 06/25/21 07:00 06/25/21 07:00 Laboratory Results - last 24 hr 06/23/21 01:50: POC Glucose 132 H 06/23/21 11:46: POC Glucose 126 H 06/23/21 16:48: POC Glucose 130 H 06/24/21 10:06: Specimen Source Left radial, O2 % 50%, ABG pH 7.32 L, ABG pCO2 34.6 L, ABG pO2 101.1 H, ABG HCO3 17.3 L, ABG Total CO2 18.4 L, ABG O2 Saturation 97, ABG Base Excess -8.8 L, Dat Test acceptable, Vent Rate 20, Tidal Volume 440, PEEP 5 06/24/21 11:08: POC Glucose 124 H 06/24/21 20:02: POC Glucose 119 H 06/25/21 05:16: WBC 9.6, RBC 3.04 L, Hgb 8.8 L, Hct 27.5 L, MCV 90.4, MCH 28.8, MCHC 31.9, RDW 19.0 H, Plt Count 211, MPV 9.1, Neut % (Auto) 74.7, Lymph % (Auto) 13.7, [place] % (Auto) 8.7, Eos % (Auto) 1.9, Baso % (Auto) 1.0, Neut # (Auto) 7.2, Lymph # (Auto) 1.3, [place] # (Auto) 0.8, Eos # (Auto) 0.2, Baso # (Auto) 0.1 06/25/21 05:16: Sodium 130 L, Potassium 4.5, Chloride 108 H, Carbon Dioxide 19 L, Anion Gap 7.5, BUN 35 H, Creatinine 1.30 H, Estimated Creat Clear 47, Estimated GFR 53 L, Est GFR ( Amer) 64, Glucose 110 H, Calcium 7.4 L, Total Bilirubin 1.6 H, AST 197 H, ALT 178 H, Alkaline Phosphatase 129 H, Total Protein 5.3 L D, Albumin 2.5 L, Globulin 2.8, Albumin/Globulin Ratio 0.9 L 06/25/21 06:00: Specimen Source Right radial, O2 % 50, ABG pH 7.27 L, ABG pCO2 35.4, ABG pO2 104.4 H, ABG HCO3 15.8 L, ABG Total CO2 16.9 L, ABG O2 Saturation 97, ABG Base Excess -11.2 L, Dat Test Acceptable, Vent Rate 20, Tidal Volume 440, PEEP 5 I & O for Last 24 hours: Intake & Output 06/22/21 06/23/21 06/24/21 06/25/21 11:59 11:59 11:59 11:59 Intake Total 2080.075 / 2146.075 1930.100 / 5074.916 5971.975 / 5290.975 3413.050 / 3413.050 Output Total 1865 / 1940 1440 / 1475 1135 / 1185 1400 / 1400 Balance 215.075 / 206.075 490.100 / 499.665 3631.975 / 4105.975 2013.050 / 2013.050 Weight 167 lb 8.821 oz 170 lb 6.4 oz 170 lb 6.4 oz Microbiology Reports for the Last 24 Hours: Microbiology 06/19/21 13:57 Blood Blood Culture - Final NO GROWTH AFTER 5 DAYS 06/19/21 13:57 Blood Blood Culture - Final NO GROWTH AFTER 5 DAYS - Constitutional Comments: Sedated, intubated on mechanical ventilation. - *Routine Respiratory Exam Present: patient mechanically ventilated - *Routine Cardiovascular Exam Present: tachycardia - *Routine Extremities Exam Present: edema. Absent: cyanosis, clubbing Progress Note: A&P (1) Pneumothorax, left Status: Acute (2) Emphysema lung Status: Acute (3) Essential hypertension Status: Acute (4) Neoplasm of lung Status: Acute (5) CAD (coronary artery disease) Status: Chronic (6) COPD (chronic obstructive pulmonary disease) Status: Chronic (7) HHD (hypertensive heart disease) Status: Chronic (8) PAD (peripheral artery disease) Status: Chronic (9) Renal insufficiency Status: Chronic (10) Atrial flutter Status: Acute Assessment and Plan for All Diagnoses:: 1. 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 Continue aspirin and Brilinta. On esmolol gtt HR controlled with goal of < 80 bpm. 2. Respiratory [place]
--- NOTE | 2021-06-25 09:31 | HMH.ACPN2 ---
Internal Medicine - PN: Subj *Date: 06/25/21 *Time: 09:00 Interval history: on vent settings ac/acmv, fio2 50%,tv 440,rate 20,peep5,ps5 chawla at bedside draing clear yellow urine ng in place Exam Vital signs and Labs for Last 24 Hours: Temp Pulse Resp BP Pulse Ox 97.7 F 111 H 20 91/59 L 98 06/25/21 08:00 06/25/21 08:00 06/25/21 08:00 06/25/21 08:00 06/25/21 08:00 Laboratory Results - last 24 hr 06/23/21 01:50: POC Glucose 132 H 06/23/21 11:46: POC Glucose 126 H 06/23/21 16:48: POC Glucose 130 H 06/24/21 10:06: Specimen Source Left radial, O2 % 50%, ABG pH 7.32 L, ABG pCO2 34.6 L, ABG pO2 101.1 H, ABG HCO3 17.3 L, ABG Total CO2 18.4 L, ABG O2 Saturation 97, ABG Base Excess -8.8 L, Dat Test acceptable, Vent Rate 20, Tidal Volume 440, PEEP 5 06/24/21 11:08: POC Glucose 124 H 06/24/21 20:02: POC Glucose 119 H 06/25/21 05:16: WBC 9.6, RBC 3.04 L, Hgb 8.8 L, Hct 27.5 L, MCV 90.4, MCH 28.8, MCHC 31.9, RDW 19.0 H, Plt Count 211, MPV 9.1, Neut % (Auto) 74.7, Lymph % (Auto) 13.7, [place] % (Auto) 8.7, Eos % (Auto) 1.9, Baso % (Auto) 1.0, Neut # (Auto) 7.2, Lymph # (Auto) 1.3, [place] # (Auto) 0.8, Eos # (Auto) 0.2, Baso # (Auto) 0.1 06/25/21 05:16: Sodium 130 L, Potassium 4.5, Chloride 108 H, Carbon Dioxide 19 L, Anion Gap 7.5, BUN 35 H, Creatinine 1.30 H, Estimated Creat Clear 47, Estimated GFR 53 L, Est GFR ( Amer) 64, Glucose 110 H, Calcium 7.4 L, Total Bilirubin 1.6 H, AST 197 H, ALT 178 H, Alkaline Phosphatase 129 H, Total Protein 5.3 L D, Albumin 2.5 L, Globulin 2.8, Albumin/Globulin Ratio 0.9 L 06/25/21 06:00: Specimen Source Right radial, O2 % 50, ABG pH 7.27 L, ABG pCO2 35.4, ABG pO2 104.4 H, ABG HCO3 15.8 L, ABG Total CO2 16.9 L, ABG O2 Saturation 97, ABG Base Excess -11.2 L, Dat Test Acceptable, Vent Rate 20, Tidal Volume 440, PEEP 5 I & O for Last 24 hours: Intake & Output 06/22/21 06/23/21 06/24/21 06/25/21 11:59 11:59 11:59 11:59 Intake Total 2080.075 / 2146.075 1930.100 / 6485.994 3889.975 / 5290.975 3527.750 / 3527.750 Output Total 1865 / 1940 1440 / 1475 1135 / 1185 1550 / 1550 Balance 215.075 / 206.075 490.100 / 278.419 4780.975 / 4105.975 1977.750 / 1977.750 Weight 167 lb 8.821 oz 170 lb 6.4 oz 170 lb 6.4 oz Microbiology Reports for the Last 24 Hours: Microbiology 06/19/21 13:57 Blood Blood Culture - Final NO GROWTH AFTER 5 DAYS 06/19/21 13:57 Blood Blood Culture - Final NO GROWTH AFTER 5 DAYS - Constitutional no acute distress, chronically ill appearing - *Routine HEENT Exam Head: Present: normocephalic Eye: Present: PERRL ENT: Present: mucous membranes moist - *Routine Neck Exam Present: supple. Absent: lymphadenopathy - *Routine Respiratory Exam Present: patient mechanically ventilated - *Routine Cardiovascular Exam Present: irregular rhythm Comments: a flutter - *Routine Abdominal Exam Present: soft. Absent: tenderness, distended - *Routine Extremities Exam Absent: cyanosis, clubbing, edema - *Routine Skin Exam Present: warm. Absent: rash Comments: dressing in place - *Routine Neurological Exam sedated Assessment and Plan (1) Pneumothorax, left Status: Acute Category: Medical Code(s): J93.9 - Pneumothorax, unspecified (2) Emphysema lung Status: Acute Category: Medical Code(s): J43.9 - Emphysema, unspecified (3) Essential hypertension Status: Acute Category: Medical Code(s): I10 - Essential (primary) hypertension (4) Neoplasm of lung Status: Acute Category: Medical Code(s): D49.1 - Neoplasm of unspecified behavior of respiratory system (5) CAD (coronary artery disease) Status: Chronic Qualifiers: Coronary Disease-Associated Artery/Lesion type: [place] artery [place] vs. transplanted heart: [place] heart Associated angina: without angina Qualified Code(s): I25.10 - Atherosclerotic heart disease of [place] coronary artery without angina p
--- NOTE | 2021-06-25 10:37 | PC.NURSE ---
Pt's belongings found at the steward/stewardess smoke room. Bag given to daughter, Lety, who confirms that all of his belongings are in the bag. She will take everything home with her today.
--- NOTE | 2021-06-25 11:14 | DIET.NUTRFU ---
Addendum entered by Emely Levy RD, LD 06/26/21 12:03: Labs reviewed on 06/26, no changes at this time Original Note: RD rounded with provider today, patient is intubated. Coded over weekend, poor prognosis, family is still wanting full code. TF is not feasible at this time d/t ileus and still receiving suction. Labs reviewed Na 130, K 4.5, BUN 35, Cr 1.3 and glucose 110. He is showing edema to hands and arms. He is receiving fluid mixed with multiple medications. Will continue to monitor labs to determine if bolus fluids are needed. Urine out via Penny is fair avg around 900ml/day. Will continue to monitor for condition changes
[2021-06-25 11:26] LABS: POC Glucose,Bedside 116 (70-110)
--- NOTE | 2021-06-25 13:30 | HMH.ACPN ---
Internal Medicine - PN: Subj *Date: 06/25/21 *Time: 13:30 Exam Vital signs and Labs for Last 24 Hours: Temp Pulse Resp BP Pulse Ox 97.7 F 110 H 20 89/59 L 98 06/25/21 12:00 06/25/21 13:00 06/25/21 13:00 06/25/21 13:00 06/25/21 13:00 Laboratory Results - last 24 hr 06/23/21 01:50: POC Glucose 132 H 06/23/21 11:46: POC Glucose 126 H 06/23/21 16:48: POC Glucose 130 H 06/24/21 11:08: POC Glucose 124 H 06/24/21 20:02: POC Glucose 119 H 06/25/21 05:16: WBC 9.6, RBC 3.04 L, Hgb 8.8 L, Hct 27.5 L, MCV 90.4, MCH 28.8, MCHC 31.9, RDW 19.0 H, Plt Count 211, MPV 9.1, Neut % (Auto) 74.7, Lymph % (Auto) 13.7, [place] % (Auto) 8.7, Eos % (Auto) 1.9, Baso % (Auto) 1.0, Neut # (Auto) 7.2, Lymph # (Auto) 1.3, [place] # (Auto) 0.8, Eos # (Auto) 0.2, Baso # (Auto) 0.1 06/25/21 05:16: Sodium 130 L, Potassium 4.5, Chloride 108 H, Carbon Dioxide 19 L, Anion Gap 7.5, BUN 35 H, Creatinine 1.30 H, Estimated Creat Clear 47, Estimated GFR 53 L, Est GFR ( Amer) 64, Glucose 110 H, Calcium 7.4 L, Total Bilirubin 1.6 H, AST 197 H, ALT 178 H, Alkaline Phosphatase 129 H, Total Protein 5.3 L D, Albumin 2.5 L, Globulin 2.8, Albumin/Globulin Ratio 0.9 L 06/25/21 06:00: Specimen Source Right radial, O2 % 50, ABG pH 7.27 L, ABG pCO2 35.4, ABG pO2 104.4 H, ABG HCO3 15.8 L, ABG Total CO2 16.9 L, ABG O2 Saturation 97, ABG Base Excess -11.2 L, Dat Test Acceptable, Vent Rate 20, Tidal Volume 440, PEEP 5 06/25/21 11:19: POC Glucose 116 H I & O for Last 24 hours: Intake & Output 06/22/21 06/23/21 06/24/21 06/25/21 23:59 23:59 23:59 23:59 Intake Total 2115.600 / 2115.600 3671.550 / 3671.550 5787.775 / 5787.775 598.300 / 598.300 Output Total 974 / 974 1380 / 1430 1455 / 1555 1240 / 1240 Balance 1141.600 / 2194.323 1118.550 / 2241.550 4332.775 / 4232.775 -641.700 / -641.700 Weight 76 kg 77.292 kg 77.292 kg Microbiology Reports for the Last 24 Hours: Microbiology 06/19/21 13:57 Blood Blood Culture - Final NO GROWTH AFTER 5 DAYS 06/19/21 13:57 Blood Blood Culture - Final NO GROWTH AFTER 5 DAYS Assessment and Plan (1) Pneumothorax, left Status: Acute Category: Medical Code(s): J93.9 - Pneumothorax, unspecified (2) Emphysema lung Status: Acute Category: Medical Code(s): J43.9 - Emphysema, unspecified (3) Essential hypertension Status: Acute Category: Medical Code(s): I10 - Essential (primary) hypertension (4) Neoplasm of lung Status: Acute Category: Medical Code(s): D49.1 - Neoplasm of unspecified behavior of respiratory system (5) CAD (coronary artery disease) Status: Chronic Qualifiers: Coronary Disease-Associated Artery/Lesion type: [place] artery [place] vs. transplanted heart: [place] heart Associated angina: without angina Qualified Code(s): I25.10 - Atherosclerotic heart disease of [place] coronary artery without angina pectoris Category: Medical Code(s): I25.10 - Atherosclerotic heart disease of [place] coronary artery without angina pectoris (6) COPD (chronic obstructive pulmonary disease) Status: Chronic Qualifiers: COPD type: unspecified COPD Qualified Code(s): J44.9 - Chronic obstructive pulmonary disease, unspecified Category: Medical Code(s): J44.9 - Chronic obstructive pulmonary disease, unspecified (7) HHD (hypertensive heart disease) Status: Chronic Qualifiers: Heart failure presence: unspecified whether heart failure present Qualified Code(s): I11.9 - Hypertensive heart disease without heart failure Category: Medical Code(s): I11.9 - Hypertensive heart disease without heart failure (8) PAD (peripheral artery disease) Status: Chronic Category: Medical Code(s): I73.9 - Peripheral vascular disease, unspecified (9) Renal insufficiency Status: Chronic Category: Medical Code(s): N28.9 - Disorder of kidney and ureter, unspecified (10) Atrial flutter Status: Acute [place]
--- NOTE | 2021-06-25 21:25 | XR_ITS ---
PROCEDURE INFORMATION: Exam: XR Chest Exam date and time: 06/25/2021 9:35 PM Age: 81 years old Clinical indication: Cardiovascular condition or disease; Cardiac arrest; Additional info: Protocol for code TECHNIQUE: Imaging protocol: XR of the chest. Views: 1 view. Portable AP supine exam 9:38 p.m. COMPARISON: CR XR CHEST PORTABLE 06/25/2021 6:08 AM FINDINGS: Tubes, catheters and devices: Endotracheal tube tip located approximately 7 cm above the vivek, minimally retracted compared with the prior exam. An enteric tube again noted extending below the diaphragm, the tip is not included on this exam to assess for interval change in position. Overlying compliance monitor electrodes and cardioversion paddles. Overlying oxygen tubing. Lungs: Question mild bilateral apical interstitial scarring left greater than right. Increased haziness of central bronchovascular markings compared with the earlier exam. Persistent lower pulmonary interstitial prominence and some hazy right central and lower pulmonary airspace opacity. Pleural spaces: Question pleural tenting/scarring or trace pleural fluid on the right. Left apical pleural thickening versus apical fluid. No pneumothorax is seen on this supine exam. Heart/Mediastinum: Borderline cardiomegaly, accentuated by portable AP technique. Vasculature: Calcified plaque in the aortic arch. Bones/joints: Bones appear mildly demineralized. No definite acute fracture.There are spinal degenerative changes, with multilevel disc narrrowing and spondylosis. IMPRESSION: 1. Slightly increased central bronchovascular markings and hazy airspace opacities in the right lung compared with the prior exam, which could be worsened vascular congestion versus pneumonia. 2. Borderline cardiomegaly. Cardioversion paddles. 3. Endotracheal tube appears minimally retracted compared with the earlier exam, tip now approximately 7 cm above the vivek. Enteric tube is incompletely imaged on this exam. 4. Additional nonemergency and chronic findings as above.
--- NOTE | 2021-06-25 21:27 | ECG_ITS ---
APPROVED REPORT Exam: Resting ECG HR:100 bpm ECG Measurements Heart Rate 100 AXES OH 232 P 87 QRSd 144 QRS -78 QT 355 T 0 QTc 412 Conclusion SINUS TACHYCARDIA WITH FIRST DEGREE AV BLOCK POSSIBLE LEFT ATRIAL ENLARGEMENT [-0.1mV P-WAVE IN V1/V2] INTRAVENTRICULAR CONDUCTION DELAY [130+ ms QRS DURATION] POSSIBLE ANTERIOR MYOCARDIAL INFARCTION , OF INDETERMINATE AGE [30 ms Q WAVE IN V3/V4, OR R < 0.2 mV IN V4] ACUTE WA INTERPRETATION BASED ON A DEFAULT AGE OF 40 YEARS UNCONFIRMED REPORT Electronically signed by : Karthik Arce MD 06/28/2021 17:44:30
[2021-06-25 21:30] LABS: ABG Base Excess -13.8 mmol/L (-2.4-2.3); ABG HCO3 13.6 mmhg (22.0-26.0); ABG Oxygen Saturation 100 % (90-100); ABG PCO2 32.7 mmhg (35.0-45.0); ABG PH 7.24 mmol/L (7.35-7.45); ABG PO2 464.7 mmhg (80-100); ABG TCO2 14.6 mmhg (23-27)
[2021-06-25 21:31] LABS: Allen's Test Non Applicable; Oxygen 100% %; Source Right Radial
[2021-06-25 21:33] LABS: Basophils # 0.2 K/mm3 (0-0.2); Basophils % 1.4 % (0.1-2.0); Eosinophils # 0.2 K/mm3 (0.0-0.4); Eosinophils % 1.9 % (0.1-12.0); Hematocrit 29.7 % (42.0-52.0); Lymphocytes # 3.4 K/mm3 (0.7-4.5); Mean Corpuscular HGB Conc 33.1 g/dL (31.8-35.4); Mean Corpuscular Hemoglobin 30.4 pg (27.0-31.2); Mean Corpuscular Volume 91.8 fl (80-94); Mean Platelet Volume 8.7 fl (7.4-10.4); Monocytes % 7.8 % (1.7-9.3); Neutrophils # 7.5 K/mm3 (1.8-7.8); Neutrophils % 60.9 % (37.0-80.0); Platelet Count 265 K/mm3 (142-424); Red Blood Count 3.23 M/mm3 (4.60-6.20); Red Cell Distribution Width 19.4 % (11.5-17.5); White Blood Count 12.3 K/mm3 (4.8-10.8)
[2021-06-25 21:37] LABS: Chloride 110 mmol/L (98-107)
[2021-06-25 21:38] LABS: Potassium 5.6 mmoL/L (3.5-5.1); Sodium 127 mmol/L (136-145)
[2021-06-25 21:40] LABS: Alanine Aminotransferase 168 U/L (12-78); Alkaline Phosphatase 157 U/L (38-126); Aspartate Amino Transferase 127 U/L (17-59); Bilirubin,Total 1.1 mg/dl (0.2-1.3); Blood Urea Nitrogen 33 mg/dl (9-20); Creatinine Clearance Estimated 47 mL/min (50-200); Estimated Glomerular Filt Rate 53 ml/min (>60); GFR (African American) 64 ML/MIN (>60)
[2021-06-25 21:41] LABS: Albumin Level 2.4 g/dl (3.5-5.0); Albumin/Globulin Ratio 0.9 (1.1-1.8); Anion Gap 9.6 mEq/L (5-15); Calcium 7.4 mg/dl (8.4-10.2); Carbon Dioxide 13 mmol/L (22.0-30.0); Globulin 2.8 g/dL (1.3-3.2); Glucose 135 mg/dl (74-100); Total Protein,Serum 5.2 g/dl (6.3-8.2)
[2021-06-25 21:42] LABS: Hemoglobin 9.9 g/dL (14.1-18.0)
[2021-06-25 21:59] LABS: Troponin I 1.56 ng/ml (0.00-0.034)
--- NOTE | 2021-06-25 22:12 | PC.NURSE ---
2114: CODE BLUE CALLED PER Jairo MÁRQUEZ RN - SHE WITNESSED PATIENT BECOME BRADYCARDIC ON TELEMETRY, WENT TO BEDSIDE. NO PULSE PALPATED. CPR INITIATED. 2116: DR. ANDRADE AT BEDSIDE 2116: EPINEPHRINE 1MG IVP GIVEN PER Vane GARCIA RN AND FLUSHED 2118: RHYTHM CHECK: PEA, NO PULSE. CPR RESUMED. Jairo MÁRQUEZ NOTIFIED FAMILY OF CHANGE IN PATIENT CONDITION. 2119: EPINEPHRINE 1MG IVP GIVEN PER Vane GARCIA RN AND FLUSHED 2120: RHYTHM CHECK:SINUS TACHYCARDIA, CAROTID PULSE PALPATED PER DR. ANDRADE. HR: 104, MANUAL BP: 78/60 LMaria Antonia MÁRQUEZ RN INCREASED NEOSYNEPHRINE DRIP TO 125MG/MIN 2121: DR. ANDRADE DRAWING ABG AND BLOOD EMERGENT VERBAL STAT ORDERS FOR: CBC, CMP, TROPONIN, PCXR AND EKG. LAB, RADIOLOGY AND R.T. AT BEDSIDE. 2123: DR. ANDRADE SPEAKING TO DR. GRIMES. EKG SENT TO DR. GRIMES. NO NEW ORDERS PER DR. GRIMES. 2134: FAMILY AT BEDSIDE. DR. ANDRADE SPEAKING WITH FAMILY. 2134: DR. ANDRADE GAVE VERBAL EMERGENT ORDER FOR 1AMP SODIUM BICARBONATE.
--- NOTE | 2021-06-25 23:56 | PC.NURSE ---
2114-on monitor outside pt's room, showed pt's HR 108, then HR 30, entered pt's room, HR on monitor 26, felt for pulse, no pulse present, called code and started compressions and acls protocol; see code sheet for code information
[2021-06-26] VITALS (38 sets, daily range): BP systolic 82–187; BP diastolic 49–90; PULSE 100–124; RESP 22–35; TEMP 36.6–37.1; O2SAT 96–100; BMI 23.1
--- NOTE | 2021-06-26 05:34 | PC.NURSE ---
notified Meera Johnson with [facility] of pt's GCS of 3T, [facility] stated not following and okay to proceed and notify with cardiac TOD
--- NOTE | 2021-06-26 06:00 | XR_ITS ---
PROCEDURE INFORMATION: Exam: XR Chest Exam date and time: 06/26/2021 5:26 AM Age: 81 years old Clinical indication: Device placement; Ett placement (vent status); Additional info: Daily while intubated TECHNIQUE: Imaging protocol: XR of the chest. Views: 1 view. COMPARISON: CR XR CHEST PORTABLE 06/25/2021 9:35 PM FINDINGS: Tubes, catheters and devices: Stable appearance of the visualized postsurgical changes and support lines/tubes. Lungs: Mild non-specific interstitial/alveolar opacities in the basilar regions bilaterally, which appears similar to previous. Pleural spaces: Question trace pleural effusions and/or pleural thickening. No pneumothorax. Heart/Mediastinum: Unremarkable. No cardiomegaly. Vasculature: Vascular calcifications. Bones/joints: No acute fracture. IMPRESSION: Similar appearance to previous as detailed in the body of the report.
[2021-06-26 06:16] LABS: Basophils # 0.1 K/mm3 (0-0.2); Basophils % 0.5 % (0.1-2.0); Eosinophils # 0.1 K/mm3 (0.0-0.4); Eosinophils % 0.4 % (0.1-12.0); Hematocrit 25.3 % (42.0-52.0); Lymphocytes # 0.8 K/mm3 (0.7-4.5); Lymphocytes % 5.7 % (10-50); Mean Corpuscular HGB Conc 32.7 g/dL (31.8-35.4); Mean Corpuscular Hemoglobin 29.6 pg (27.0-31.2); Mean Corpuscular Volume 90.6 fl (80-94); Mean Platelet Volume 9.1 fl (7.4-10.4); Monocytes # 0.9 K/mm3 (0.1-1.0); Monocytes % 6.5 % (1.7-9.3); Neutrophils # 11.5 K/mm3 (1.8-7.8); Neutrophils % 86.7 % (37.0-80.0); Platelet Count 276 K/mm3 (142-424); Red Blood Count 2.79 M/mm3 (4.60-6.20); Red Cell Distribution Width 19.6 % (11.5-17.5); White Blood Count 13.2 K/mm3 (4.8-10.8)
[2021-06-26 06:20] LABS: MANUAL DIFFERENTIAL MANUAL DIFFERENTIAL (MANUAL DIFF)
[2021-06-26 06:25] LABS: Hemoglobin 8.4 g/dL (14.1-18.0)
[2021-06-26 06:34] LABS: Chloride 110 mmol/L (98-107); Potassium 4.9 mmoL/L (3.5-5.1); Sodium 131 mmol/L (136-145)
[2021-06-26 06:37] LABS: Alanine Aminotransferase 182 U/L (12-78); Albumin Level 2.5 g/dl (3.5-5.0); Albumin/Globulin Ratio 0.9 (1.1-1.8); Alkaline Phosphatase 148 U/L (38-126); Anion Gap 7.9 mEq/L (5-15); Aspartate Amino Transferase 137 U/L (17-59); Bilirubin,Total 1.3 mg/dl (0.2-1.3); Blood Urea Nitrogen 36 mg/dl (9-20); Carbon Dioxide 18 mmol/L (22.0-30.0); Creatinine Clearance Estimated 47 mL/min (50-200); Estimated Glomerular Filt Rate 53 ml/min (>60); GFR (African American) 64 ML/MIN (>60); Globulin 2.9 g/dL (1.3-3.2); Total Protein,Serum 5.4 g/dl (6.3-8.2)
[2021-06-26 06:38] LABS: Glucose 103 mg/dl (74-100)
[2021-06-26 07:24] LABS: Lymphocytes % 6 % (10-50); Monocytes % 8 % (2-9); Neutrophils % 86 % (42-76); Nucleated Red Blood Cells 2; Total Cells Counted 100
[2021-06-26 07:27] LABS: Platelet Estimate Normal; RBC Morphology Normal
[2021-06-26 07:44] LABS: ABG Base Excess -11.7 mmol/L (-2.4-2.3); ABG HCO3 15.6 mmhg (22.0-26.0); ABG Oxygen Saturation 94 % (90-100); ABG PCO2 36.9 mmhg (35.0-45.0); ABG PH 7.24 mmol/L (7.35-7.45); ABG PO2 79.6 mmhg (80-100); ABG TCO2 16.7 mmhg (23-27)
[2021-06-26 07:45] LABS: Allen's Test Acceptable; Oxygen 50 %; PEEP 5; Source Left Radial; Tidal Volume 440; Vent Rate 20
[2021-06-26 08:02] LABS: Lactate Arterial 1.3 mmol/L (0.4-2.0)
--- NOTE | 2021-06-26 09:25 | HMH.ACPN2 ---
Internal Medicine - PN: Subj *Date: 06/26/21 *Time: 19:44 Interval history: 81-year-old male patient resting quietly in bed, remains on ventilator 20/440/50 +5, propofol, madeleine-, esmolol infusing. CODE RANDALL was called last night after patient became pulseless, CPR started, ROSC was achieved after 1 round of epinephrine. Exam Vital signs and Labs for Last 24 Hours: Temp Pulse Resp BP Pulse Ox 98.5 F 120 H 33 H 107/69 L 100 06/26/21 08:00 06/26/21 08:00 06/26/21 07:00 06/26/21 07:00 06/26/21 07:00 Laboratory Results - last 24 hr 06/25/21 11:19: POC Glucose 116 H 06/25/21 21:25: WBC 12.3 H D, RBC 3.23 L, Hgb 9.9 L D, Hct 29.7 L, MCV 91.8, MCH 30.4, MCHC 33.1, RDW 19.4 H, Plt Count 265 D, MPV 8.7, Neut % (Auto) 60.9, Lymph % (Auto) 28.0, [place] % (Auto) 7.8, Eos % (Auto) 1.9, Baso % (Auto) 1.4, Neut # (Auto) 7.5, Lymph # (Auto) 3.4, [place] # (Auto) 1.0, Eos # (Auto) 0.2, Baso # (Auto) 0.2 06/25/21 21:25: Sodium 127 L, Potassium 5.6 H D, Chloride 110 H, Carbon Dioxide 13 L, Anion Gap 9.6, BUN 33 H, Creatinine 1.30 H, Estimated Creat Clear 47, Estimated GFR 53 L, Est GFR ( Amer) 64, Glucose 135 H D, Calcium 7.4 L, Total Bilirubin 1.1, AST 127 H D, ALT 168 H, Alkaline Phosphatase 157 H, Troponin I 1.56 H, Total Protein 5.2 L, Albumin 2.4 L, Globulin 2.8, Albumin/Globulin Ratio 0.9 L 06/25/21 21:26: Specimen Source Right radial, O2 % 100%, ABG pH 7.24 L*, ABG pCO2 32.7 L, ABG pO2 464.7 H, ABG HCO3 13.6 L, ABG Total CO2 14.6 L, ABG O2 Saturation 100, ABG Base Excess -13.8 L, Dat Test Non applicable 06/26/21 05:35: WBC 13.2 H, RBC 2.79 L, Hgb 8.4 L D, Hct 25.3 L, MCV 90.6, MCH 29.6, MCHC 32.7, RDW 19.6 H, Plt Count 276, MPV 9.1, Neut % (Auto) 86.7 H, Lymph % (Auto) 5.7 L, [place] % (Auto) 6.5, Eos % (Auto) 0.4, Baso % (Auto) 0.5, Neut # (Auto) 11.5 H, Lymph # (Auto) 0.8, [place] # (Auto) 0.9, Eos # (Auto) 0.1, Baso # (Auto) 0.1, Total Counted 100, Neutrophils % (Manual) 86 H, Lymphocytes % (Manual) 6 L, Monocytes % (Manual) 8, Nucleated RBCs 2, Platelet Estimate Normal, RBC Morphology Normal 06/26/21 05:35: Sodium 131 L, Potassium 4.9, Chloride 110 H, Carbon Dioxide 18 L, Anion Gap 7.9, BUN 36 H, Creatinine 1.30 H, Estimated Creat Clear 47, Estimated GFR 53 L, Est GFR ( Amer) 64, Glucose 103 H D, Calcium 7.0 L, Total Bilirubin 1.3, AST 137 H, ALT 182 H, Alkaline Phosphatase 148 H, Total Protein 5.4 L, Albumin 2.5 L, Globulin 2.9, Albumin/Globulin Ratio 0.9 L 06/26/21 06:00: ABG Lactate 1.3 06/26/21 06:00: Specimen Source Left radial, O2 % 50, ABG pH 7.24 L*, ABG pCO2 36.9, ABG pO2 79.6 L, ABG HCO3 15.6 L, ABG Total CO2 16.7 L, ABG O2 Saturation 94, ABG Base Excess -11.7 L, Dat Test Acceptable, Vent Rate 20, Tidal Volume 440, PEEP 5 I & O for Last 24 hours: Intake & Output 06/23/21 06/24/21 06/25/21 06/26/21 23:59 23:59 23:59 23:59 Intake Total 3671.550 / 3671.550 5787.775 / 5787.775 6250.875 / 6250.875 2964.000 / 2964.000 Output Total 1380 / 1430 1455 / 1555 1765 / 1930 660 / 660 Balance 2291.550 / 2241.550 4332.775 / 4232.775 4485.875 / 4320.875 2304.000 / 2304.000 Weight 170 lb 6.4 oz 170 lb 6.4 oz 170 lb 6 oz - Constitutional no acute distress, chronically ill appearing - *Routine Respiratory Exam Present: patient mechanically ventilated, rhonchi - *Routine Cardiovascular Exam Present: irregular rhythm - *Routine Abdominal Exam Present: soft, normoactive bowel sounds. Absent: firm - *Routine Extremities Exam Present: pulses intact. Absent: cyanosis, clubbing - *Routine Skin Exam Present: dry, wounds. Absent: cyanosis, erythema - *Routine Neurological Exam Present: altered mental status - Routine Psychiatric Exam Present: unable to assess Assessment and Plan (1) Pneumothorax, left Status: Acute Category: Medical Code(s): J93.9 - Pneumothorax, unspecified (2) Emphysema lung Status: Acute Category: Medical Code(s): J43.9 - Emphysema, unspecified (3) Essential hypertension Status: Acute
--- NOTE | 2021-06-26 09:28 | PC.NURSE ---
dr. edmondson and arminda mcdowell pa in room speaking with multiple family members at this time
--- NOTE | 2021-06-26 11:44 | HMH.PNCARD ---
Subjective Date: 06/26/21 Time: 09:30 Principal diagnosis: Coronary dissection, left pneumothorax Interval history: 81 yo WM in bed. Eyes open but poorly attentive to verbal and physical stimuli. Pt was again coded last night. EKG is concerning for OK in distribution of recent stents. Long discussion with family that a positive outcome continues to dwindle and is highly unlikely at this time. REcommend extubating him and giving the family time to say goodbye while keeping him comfortable. They will discuss and make decision today. Exam Vital signs and Labs for Last 24 Hours: Temp Pulse Resp BP Pulse Ox 98.5 F 120 H 34 H 121/78 100 06/26/21 08:00 06/26/21 10:56 06/26/21 10:00 06/26/21 10:00 06/26/21 10:00 Laboratory Results - last 24 hr 06/25/21 21:25: WBC 12.3 H D, RBC 3.23 L, Hgb 9.9 L D, Hct 29.7 L, MCV 91.8, MCH 30.4, MCHC 33.1, RDW 19.4 H, Plt Count 265 D, MPV 8.7, Neut % (Auto) 60.9, Lymph % (Auto) 28.0, [place] % (Auto) 7.8, Eos % (Auto) 1.9, Baso % (Auto) 1.4, Neut # (Auto) 7.5, Lymph # (Auto) 3.4, [place] # (Auto) 1.0, Eos # (Auto) 0.2, Baso # (Auto) 0.2 06/25/21 21:25: Sodium 127 L, Potassium 5.6 H D, Chloride 110 H, Carbon Dioxide 13 L, Anion Gap 9.6, BUN 33 H, Creatinine 1.30 H, Estimated Creat Clear 47, Estimated GFR 53 L, Est GFR ( Amer) 64, Glucose 135 H D, Calcium 7.4 L, Total Bilirubin 1.1, AST 127 H D, ALT 168 H, Alkaline Phosphatase 157 H, Troponin I 1.56 H, Total Protein 5.2 L, Albumin 2.4 L, Globulin 2.8, Albumin/Globulin Ratio 0.9 L 06/25/21 21:26: Specimen Source Right radial, O2 % 100%, ABG pH 7.24 L*, ABG pCO2 32.7 L, ABG pO2 464.7 H, ABG HCO3 13.6 L, ABG Total CO2 14.6 L, ABG O2 Saturation 100, ABG Base Excess -13.8 L, Dat Test Non applicable 06/26/21 05:35: WBC 13.2 H, RBC 2.79 L, Hgb 8.4 L D, Hct 25.3 L, MCV 90.6, MCH 29.6, MCHC 32.7, RDW 19.6 H, Plt Count 276, MPV 9.1, Neut % (Auto) 86.7 H, Lymph % (Auto) 5.7 L, [place] % (Auto) 6.5, Eos % (Auto) 0.4, Baso % (Auto) 0.5, Neut # (Auto) 11.5 H, Lymph # (Auto) 0.8, [place] # (Auto) 0.9, Eos # (Auto) 0.1, Baso # (Auto) 0.1, Total Counted 100, Neutrophils % (Manual) 86 H, Lymphocytes % (Manual) 6 L, Monocytes % (Manual) 8, Nucleated RBCs 2, Platelet Estimate Normal, RBC Morphology Normal 06/26/21 05:35: Sodium 131 L, Potassium 4.9, Chloride 110 H, Carbon Dioxide 18 L, Anion Gap 7.9, BUN 36 H, Creatinine 1.30 H, Estimated Creat Clear 47, Estimated GFR 53 L, Est GFR ( Amer) 64, Glucose 103 H D, Calcium 7.0 L, Total Bilirubin 1.3, AST 137 H, ALT 182 H, Alkaline Phosphatase 148 H, Total Protein 5.4 L, Albumin 2.5 L, Globulin 2.9, Albumin/Globulin Ratio 0.9 L 06/26/21 06:00: ABG Lactate 1.3 06/26/21 06:00: Specimen Source Left radial, O2 % 50, ABG pH 7.24 L*, ABG pCO2 36.9, ABG pO2 79.6 L, ABG HCO3 15.6 L, ABG Total CO2 16.7 L, ABG O2 Saturation 94, ABG Base Excess -11.7 L, Dat Test Acceptable, Vent Rate 20, Tidal Volume 440, PEEP 5 I & O for Last 24 hours: Intake & Output 06/23/21 06/24/21 06/25/2106/26/22 11:59 11:59 11:59 11:59 Intake Total 1930.100 / 4545.549 9312.975 / 5290.975 3654.075 / 3654.075 8738.250 / 8738.250 Output Total 1440 / 1475 1135 / 1185 1725 / 1865 1450 / 1450 Balance 490.100 / 346.901 8392.975 / 4105.975 1929.075 / 0495.738 7912.250 / 7288.250 Weight 170 lb 6.4 oz 170 lb 6.4 oz 170 lb 6 oz Microbiology Reports for the Last 24 Hours: Microbiology 06/23/21 15:30 Sputum - Endotracheal Tube Aspirate Gram Stain - Final 06/23/21 15:30 Sputum - Endotracheal Tube Aspirate Sputum Culture - Final Normal Respiratory Kaylin - Constitutional Comments: On vent with eyes open but poorly responsive. - *Routine Respiratory Exam Present: patient mechanically ventilated, CTA bilaterally - *Routine Cardiovascular Exam Present: RRR, tachycardia - *Routine Extremities Exam Present: edema. Absent: cyanosis, clubbing Progress Note: A&P (1) Pneumothorax, left Status: Acute (2) Emphysema lung
[2021-06-26 13:04] LABS: POC Glucose,Bedside 128 (70-110)
--- NOTE | 2021-06-26 15:33 | XR_ITS ---
PROCEDURE INFORMATION: Exam: XR Abdomen Exam date and time: 06/26/2021 4:52 PM Age: 81 years old Clinical indication: Screening exam; Other: Ileus; Additional info: Follow up on ileus; Patient on vent. TECHNIQUE: Imaging protocol: XR of the abdomen. Views: Frontal supine view of the abdomen. 1 View. COMPARISON: CR XR KUB 06/21/2021 9:16 AM FINDINGS: Gastrointestinal tract: The bowel gas pattern is not remarkable. Vasculature: And aortic stent graft is present. Bones/joints: Unremarkable. IMPRESSION: Nonspecific bowel gas pattern, resolving ileus. Decreasing bowel air when compared to prior.
--- NOTE | 2021-06-26 16:35 | PC.NURSE ---
1503: notified Mavis mcdowell that pt hr has been in the 120's for the past hour, pt esmolol is as high as it can go (200mcg). Pt madeleine is at 10mcg bp is 140/70. Dr Day at bedside at 1505. discussed pt condition with family. Dr Day states to turn off all sedation at 0730 in am, and have RT begin SBT. ordered to also have bipap ready and available. RT notified of physician orders. verbal order also received for pt to have 40 of lasix iv times 1 dose now, and pt to have KUB to evaluate previous ileus.
[2021-06-26 22:36] LABS: POC Glucose,Bedside 121 (70-110)
[2021-06-27] VITALS (32 sets, daily range): BP systolic 100–151; BP diastolic 61–89; PULSE 79–116; RESP 13–37; TEMP 36.7–36.8; O2SAT 96–100; BMI 25.3
--- NOTE | 2021-06-27 06:00 | XR_ITS ---
PROCEDURE INFORMATION: Exam: XR Chest Exam date and time: 06/27/2021 4:26 AM Age: 81 years old Clinical indication: Device placement; Ett placement (vent status); Additional info: Daily while intubated TECHNIQUE: Imaging protocol: XR of the chest. Views: 1 view. COMPARISON: CR XR CHEST PORTABLE 06/26/2021 5:26 AM FINDINGS: Tubes, catheters and devices: The ET tube and nasogastric tube are in good position. Lungs: Some patchy lung space changes are bilaterally. Pleural spaces: Unremarkable. No pleural effusion. No pneumothorax. Heart/Mediastinum: The heart is enlarged but unchanged from prior. Bones/joints: Unremarkable. IMPRESSION: Stable exam.
[2021-06-27 06:51] LABS: POC Glucose,Bedside 123 (70-110)
[2021-06-27 07:23] LABS: Basophils # 0.1 K/mm3 (0-0.2); Basophils % 0.5 % (0.1-2.0); Eosinophils # 0.3 K/mm3 (0.0-0.4); Eosinophils % 1.5 % (0.1-12.0); Hemoglobin 10.2 g/dL (14.1-18.0); Lymphocytes # 1.3 K/mm3 (0.7-4.5); Lymphocytes % 7.8 % (10-50); Mean Corpuscular HGB Conc 31.9 g/dL (31.8-35.4); Mean Corpuscular Hemoglobin 29.6 pg (27.0-31.2); Mean Corpuscular Volume 92.9 fl (80-94); Mean Platelet Volume 8.6 fl (7.4-10.4); Monocytes # 1.3 K/mm3 (0.1-1.0); Monocytes % 7.9 % (1.7-9.3); Neutrophils # 13.7 K/mm3 (1.8-7.8); Neutrophils % 82.4 % (37.0-80.0); Platelet Count 298 K/mm3 (142-424); Red Blood Count 3.44 M/mm3 (4.60-6.20); Red Cell Distribution Width 20.2 % (11.5-17.5); White Blood Count 16.6 K/mm3 (4.8-10.8)
[2021-06-27 07:28] LABS: MANUAL DIFFERENTIAL MANUAL DIFFERENTIAL (MANUAL DIFF)
[2021-06-27 07:51] LABS: Chloride 114 mmol/L (98-107); Sodium 133 mmol/L (136-145)
[2021-06-27 07:52] LABS: Potassium 5.1 mmoL/L (3.5-5.1)
[2021-06-27 07:54] LABS: Alanine Aminotransferase 146 U/L (12-78); Albumin Level 2.1 g/dl (3.5-5.0); Albumin/Globulin Ratio 0.8 (1.1-1.8); Alkaline Phosphatase 148 U/L (38-126); Anion Gap 9.1 mEq/L (5-15); Aspartate Amino Transferase 108 U/L (17-59); Bilirubin,Total 1.1 mg/dl (0.2-1.3); Blood Urea Nitrogen 35 mg/dl (9-20); Carbon Dioxide 15 mmol/L (22.0-30.0); Creatinine Clearance Estimated 61 mL/min (50-200); Estimated Glomerular Filt Rate 64 ml/min (>60); GFR (African American) 77 ML/MIN (>60); Globulin 2.6 g/dL (1.3-3.2); Total Protein,Serum 4.7 g/dl (6.3-8.2)
[2021-06-27 07:55] LABS: Calcium 7.2 mg/dl (8.4-10.2); Glucose 97 mg/dl (74-100)
[2021-06-27 09:24] LABS: Eosinophils % 1 % (0-3); Lymphocytes % 7 % (10-50); Monocytes % 8 % (2-9); Neutrophils % 84 % (42-76); Nucleated Red Blood Cells 3; Total Cells Counted 100
[2021-06-27 09:28] LABS: Hypochromasia 1+; Platelet Estimate Normal
--- NOTE | 2021-06-27 10:33 | HMH.ACPN2 ---
Internal Medicine - PN: Subj *Date: 06/27/21 *Time: 08:10 Interval history: family at bedside vent settings vca.cmv fio2 50,tv 440,rate20,ps5,peep5 Exam Vital signs and Labs for Last 24 Hours: Temp Pulse Resp BP Pulse Ox 98.3 F 112 H 33 H 121/80 100 06/27/21 04:00 06/27/21 06:45 06/27/21 10:21 06/27/21 06:45 06/27/21 10:21 Laboratory Results - last 24 hr 06/25/21 22:08: POC Glucose 128 H 06/26/21 22:26: POC Glucose 121 H 06/27/21 06:04: POC Glucose 123 H 06/27/21 06:56: WBC 16.6 H D, RBC 3.44 L, Hgb 10.2 L, Hct 32.0 L, MCV 92.9, MCH 29.6, MCHC 31.9, RDW 20.2 H, Plt Count 298, MPV 8.6, Neut % (Auto) 82.4 H, Lymph % (Auto) 7.8 L, [place] % (Auto) 7.9, Eos % (Auto) 1.5, Baso % (Auto) 0.5, Neut # (Auto) 13.7 H, Lymph # (Auto) 1.3, [place] # (Auto) 1.3 H, Eos # (Auto) 0.3, Baso # (Auto) 0.1, Total Counted 100, Neutrophils % (Manual) 84 H, Lymphocytes % (Manual) 7 L, Monocytes % (Manual) 8, Eosinophils % (Manual) 1, Nucleated RBCs 3, Platelet Estimate Normal, Hypochromasia 1+ 06/27/21 06:56: Sodium 133 L, Potassium 5.1, Chloride 114 H, Carbon Dioxide 15 L, Anion Gap 9.1, BUN 35 H, Creatinine 1.10, Estimated Creat Clear 61, Estimated GFR 64, Est GFR ( Amer) 77 D, Glucose 97, Calcium 7.2 L, Total Bilirubin 1.1, AST 108 H, ALT 146 H, Alkaline Phosphatase 148 H, Total Protein 4.7 L, Albumin 2.1 L D, Globulin 2.6, Albumin/Globulin Ratio 0.8 L I & O for Last 24 hours: Intake & Output 06/24/21 06/25/21 06/26/21 06/27/21 11:59 11:59 11:59 11:59 Intake Total 5290.975 / 5290.975 3654.075 / 3654.075 8812.250 / 8835.250 5309.708 / 5309.708 Output Total 1135 / 1185 1725 / 1865 1450 / 1450 1877 / 1877 Balance 4155.975 / 4105.975 1929.075 / 1968.637 2002.250 / 7385.250 3432.708 / 3432.708 Weight 170 lb 6.4 oz 170 lb 6 oz 187 lb 2.759 oz Microbiology Reports for the Last 24 Hours: Microbiology 06/23/21 15:30 Sputum - Endotracheal Tube Aspirate Gram Stain - Final 06/23/21 15:30 Sputum - Endotracheal Tube Aspirate Sputum Culture - Final Normal Respiratory Kaylin - Constitutional no acute distress - *Routine HEENT Exam Head: Present: normocephalic Eye: Present: PERRL ENT: Present: mucous membranes moist - *Routine Neck Exam Present: supple. Absent: lymphadenopathy - *Routine Respiratory Exam Present: patient mechanically ventilated - *Routine Cardiovascular Exam Present: tachycardia - *Routine Abdominal Exam Present: soft, normoactive bowel sounds. Absent: tenderness - *Routine Extremities Exam Absent: cyanosis, clubbing, edema - *Routine Skin Exam Present: warm. Absent: rash - *Routine Neurological Exam sedated Assessment and Plan (1) Pneumothorax, left Status: Acute Category: Medical Code(s): J93.9 - Pneumothorax, unspecified (2) Emphysema lung Status: Acute Category: Medical Code(s): J43.9 - Emphysema, unspecified (3) Essential hypertension Status: Acute Category: Medical Code(s): I10 - Essential (primary) hypertension (4) Neoplasm of lung Status: Acute Category: Medical Code(s): D49.1 - Neoplasm of unspecified behavior of respiratory system (5) CAD (coronary artery disease) Status: Chronic Qualifiers: Coronary Disease-Associated Artery/Lesion type: [place] artery [place] vs. transplanted heart: [place] heart Associated angina: without angina Qualified Code(s): I25.10 - Atherosclerotic heart disease of [place] coronary artery without angina pectoris Category: Medical Code(s): I25.10 - Atherosclerotic heart disease of [place] coronary artery without angina pectoris (6) COPD (chronic obstructive pulmonary disease) Status: Chronic Qualifiers: COPD type: unspecified COPD Qualified Code(s): J44.9 - Chronic obstructive pulmonary disease, unspecified Category: Medical Code(s): J44.9 - Chronic obstructive pulmonary disease, unspecified (7) HHD (hypertensive heart disease) Status: Chronic
--- NOTE | 2021-06-27 12:05 | PC.NURSE ---
Pt placed back on AC mode on ventilator.
--- NOTE | 2021-06-27 12:17 | HMH.PNCARD ---
Subjective Date: 06/27/21 Time: 12:17 Principal diagnosis: Coronary dissection, left pneumothorax Interval history: 81-year-old white male in the bed in no acute distress. Patient tolerated SBT trial for about 2 hours and then tidal volume began to decrease with increase in respiratory rate. We will now place him back on the ventilator for 2 hours and repeat SBT trial for 20 minutes. If tidal volume remains strong then will pull of the endotracheal tube out and use BiPAP if needed. This was discussed with the sons and daughters. And this is what they wish. Exam Vital signs and Labs for Last 24 Hours: Temp Pulse Resp BP Pulse Ox 98.3 F 108 H 13 121/80 99 06/27/21 04:00 06/27/21 12:14 06/27/21 12:14 06/27/21 06:45 06/27/21 12:14 Laboratory Results - last 24 hr 06/25/21 22:08: POC Glucose 128 H 06/26/21 22:26: POC Glucose 121 H 06/27/21 06:04: POC Glucose 123 H 06/27/21 06:56: WBC 16.6 H D, RBC 3.44 L, Hgb 10.2 L, Hct 32.0 L, MCV 92.9, MCH 29.6, MCHC 31.9, RDW 20.2 H, Plt Count 298, MPV 8.6, Neut % (Auto) 82.4 H, Lymph % (Auto) 7.8 L, [place] % (Auto) 7.9, Eos % (Auto) 1.5, Baso % (Auto) 0.5, Neut # (Auto) 13.7 H, Lymph # (Auto) 1.3, [place] # (Auto) 1.3 H, Eos # (Auto) 0.3, Baso # (Auto) 0.1, Total Counted 100, Neutrophils % (Manual) 84 H, Lymphocytes % (Manual) 7 L, Monocytes % (Manual) 8, Eosinophils % (Manual) 1, Nucleated RBCs 3, Platelet Estimate Normal, Hypochromasia 1+ 06/27/21 06:56: Sodium 133 L, Potassium 5.1, Chloride 114 H, Carbon Dioxide 15 L, Anion Gap 9.1, BUN 35 H, Creatinine 1.10, Estimated Creat Clear 61, Estimated GFR 64, Est GFR ( Amer) 77 D, Glucose 97, Calcium 7.2 L, Total Bilirubin 1.1, AST 108 H, ALT 146 H, Alkaline Phosphatase 148 H, Total Protein 4.7 L, Albumin 2.1 L D, Globulin 2.6, Albumin/Globulin Ratio 0.8 L I & O for Last 24 hours: Intake & Output 06/25/21 06/26/21 06/27/21 06/28/21 11:59 11:59 11:59 11:59 Intake Total 3654.075 / 3654.075 8812.250 / 8835.250 5431.383 / 5431.383 Output Total 1725 / 1865 1450 / 1450 1877 / 1877 Balance 1929.075 / 2618.645 0571.250 / 7385.250 3554.383 / 3554.383 Weight 170 lb 6.4 oz 170 lb 6 oz 187 lb 2.759 oz Microbiology Reports for the Last 24 Hours: Microbiology 06/23/21 15:30 Sputum - Endotracheal Tube Aspirate Gram Stain - Final 06/23/21 15:30 Sputum - Endotracheal Tube Aspirate Sputum Culture - Final Normal Respiratory Kaylin - *Routine Respiratory Exam Present: CTA bilaterally - *Routine Cardiovascular Exam Present: RRR, tachycardia Progress Note: A&P (1) Pneumothorax, left Status: Acute (2) Emphysema lung Status: Acute (3) Essential hypertension Status: Acute (4) Neoplasm of lung Status: Acute (5) CAD (coronary artery disease) Status: Chronic (6) COPD (chronic obstructive pulmonary disease) Status: Chronic (7) HHD (hypertensive heart disease) Status: Chronic (8) PAD (peripheral artery disease) Status: Chronic (9) Renal insufficiency Status: Chronic (10) Atrial flutter Status: Acute Assessment and Plan for All Diagnoses:: 1. 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 Continue aspirin and Brilinta. On esmolol gtt HR 120's bpm. 2. Respiratory Failure, SBT trial this a.m successful but will restart vent for rest for 2 hours. Family doesn't want chest compressions only medical code if it recurs. 3. Possible right pneumonia, on levoquin 4. COPD/history of lung cancer with XRT. 5. Chronic anemia (in the range of 11-12) with expected drop secondary to bloody pericardial effusion. Patient did receive blood transfusion and FFP during the cardiac cath/initial code. Hemoglobin 10.2 today after IV Lasix yesterday. 6. Chronic renal insufficiency, stage II, stable with creatinine 1.1 and GFR 61. Known right renal artery stenosis. 7. A.
--- NOTE | 2021-06-27 13:43 | PC.NURSE ---
0705 fentanyl and propofol turned off by off going shift in preparation of SBT. SBT started at approx 0840 per order from Mavis mcdowell. notified Mavis mcdowell at approx 0940 that pt was breathing 17 times per min, and tidal volume was around 500-600, yet pt was not yet alert enough to follow any commands. per mavis mcdowell, wait to extubate pt until he is more alert. upon reassessment of pt respiratory status, pt rr was 37 and tv was noted to be 250-340 at times. called and notified of respiratory status. pt children expressed concerns of spouse not understanding situation. Dr Edmondson asked to come to floor and speak with family in regards to plan and expectations. 1200 Dr Edmondson on floor, speaking with family. advised pt to be placed back on AC mode on vent and back on sedation for 2 hours. the SBT for 20 mins. if pt volumes hold steady pt to be extubated. Dr Edmondson advised pt to be placed on bipap if unable to manage volumes on his own. if further decline noted, pt to be reintubated. family states they do not want pt to have chest compressions. Dr Edmondson advised that pt will not have chest compressions, but can/will receive ACLS meds, defibrillation and reintubation if required. pt rr noted to be 20 and pt resting comfortably on propofol 40mcg. at approx 1400 pt sedation stopped in preparation for SBT. 1420 spoke with pt and children. clarified with family resuscitation wishes. per , son and daughter, if patient heart stops beating and pt stops breathing: no ACLS drugs, no defibrillation, no chest compressions, and no re/intubation. 1435 called and notified Mavis Mcdowell of family wishes, and request medications to keep pt comfortable. mavis mcdowell gave order for morphine 1mg q1hprn mild pain/air hunger/comfort and morphine 2 mg iv q1hprn moderate-severe pain/air hunger/comfort dr Edmondson at bedside at 1440. spoke with family about situation. staff to proceed with extubation, place on nasal cannula and change to bipap if condition deteriorates. pt extubated at approx 1450. order received from dr edmondson at 1500, pt to receive 80mg of iv lasix x 1 dose now.
--- NOTE | 2021-06-27 14:57 | PC.NURSE ---
Pt. extubated at 1450.
--- NOTE | 2021-06-27 20:34 | PC.NURSE ---
1999-bp 149/84, decreased madeleine drip to 80mcg 2114-bp 151/86, decreased madeleine drip to 60mcg 2029-bp 141/81, decreased madeleine drip to 50mcg
[2021-06-28] VITALS (19 sets, daily range): BP systolic 89–125; BP diastolic 52–74; PULSE 73–111; RESP 20–33; TEMP 36.6–37.1; O2SAT 93–100; BMI 26.2
--- NOTE | 2021-06-28 00:46 | PC.NURSE ---
2100-bp 126/74, decreased madeleine drip to 45mcg 2130-bp 133/73, decreased madeleine drip to 40mcg 2200-bp 136/80, decreased madeleine drip to 35mcg 2230-bp 118/67 2300-bp 128/74, decreased madeleine drip to 30mcg 2330-bp 111/71 0000-bp 112/60, decreased madeleine drip to 25mcg 0030-bp 113/54, decreased madeleine drip to 20mcg 0045-bp 100/57
--- NOTE | 2021-06-28 00:50 | PC.NURSE ---
2315-HR 116, increased esmolol drip from 100 to 200 0000-HR 81, decreased esmolol drip to 150 0030-HR 88, increased esmolol drip to 175
[2021-06-28 07:45] LABS: Chloride 112 mmol/L (98-107); Potassium 4.3 mmoL/L (3.5-5.1); Sodium 134 mmol/L (136-145)
[2021-06-28 07:48] LABS: Alanine Aminotransferase 107 U/L (12-78); Albumin Level 2.1 g/dl (3.5-5.0); Albumin/Globulin Ratio 0.9 (1.1-1.8); Alkaline Phosphatase 138 U/L (38-126); Aspartate Amino Transferase 65 U/L (17-59); Bilirubin,Total 1.4 mg/dl (0.2-1.3); Blood Urea Nitrogen 37 mg/dl (9-20); Calcium 6.9 mg/dl (8.4-10.2); Carbon Dioxide 17 mmol/L (22.0-30.0); Creatinine Clearance Estimated 58 mL/min (50-200); Estimated Glomerular Filt Rate 58 ml/min (>60); GFR (African American) 70 ML/MIN (>60); Globulin 2.3 g/dL (1.3-3.2); Glucose 91 mg/dl (74-100); Total Protein,Serum 4.4 g/dl (6.3-8.2)
[2021-06-28 07:51] LABS: Anion Gap 9.3 mEq/L (5-15)
--- NOTE | 2021-06-28 08:26 | HMH.PNCARD ---
Subjective Date: 06/28/21 Time: 08:26 Principal diagnosis: Coronary dissection, left pneumothorax Interval history: 81-year-old white male in bed resting but with increased respiratory rate with audible congestion. Eyes closed. Patient was extubated successfully yesterday without the need for BiPAP therapy overnight. He remains on oxygen by nasal cannula. Blood pressure supported with [place]-Synephrine with current blood pressure 88/54 mmHg. Heart rate 112 bpm at this time on maximum esmolol drip. NG tube removed and pt not taking oral meds (including amiodarone and DAPT). Will give DAPT rectally and restart IV amiodarone if needed. Exam Vital signs and Labs for Last 24 Hours: Temp Pulse Resp BP Pulse Ox 98.1 F 77 32 H 104/60 L 100 06/28/21 04:00 06/28/21 06:18 06/28/21 06:00 06/28/21 06:00 06/28/21 06:18 Laboratory Results - last 24 hr 06/27/21 06:56: Total Counted 100, Neutrophils % (Manual) 84 H, Lymphocytes % (Manual) 7 L, Monocytes % (Manual) 8, Eosinophils % (Manual) 1, Nucleated RBCs 3, Platelet Estimate Normal, Hypochromasia 1+ 06/28/21 05:27: Sodium 134 L, Potassium 4.3, Chloride 112 H, Carbon Dioxide 17 L, Anion Gap 9.3, BUN 37 H, Creatinine 1.20, Estimated Creat Clear 58, Estimated GFR 58 L, Est GFR ( Amer) 70, Glucose 91, Calcium 6.9 L, Total Bilirubin 1.4 H, AST 65 H D, ALT 107 H D, Alkaline Phosphatase 138 H, Total Protein 4.4 L, Albumin 2.1 L, Globulin 2.3, Albumin/Globulin Ratio 0.9 L I & O for Last 24 hours: Intake & Output 06/25/21 06/26/21 06/27/21 06/28/21 11:59 11:59 11:59 11:59 Intake Total 3654.075 / 3654.075 8812.250 / 8835.250 5431.383 / 5431.383 2805.850 / 2805.850 Output Total 1725 / 1865 1450 / 1450 1877 / 2227 4650 / 4650 Balance 1929.075 / 1519.292 2505.250 / 7385.250 3554.383 / 3204.383 -1844.150 / -1844.150 Weight 170 lb 6.4 oz 170 lb 6 oz 187 lb 2.759 oz 193 lb 4.8 oz - Constitutional somnolent - *Routine Respiratory Exam Present: rhonchi - *Routine Cardiovascular Exam Present: RRR, tachycardia Progress Note: A&P (1) Pneumothorax, left Status: Acute (2) Emphysema lung Status: Acute (3) Essential hypertension Status: Acute (4) Neoplasm of lung Status: Acute (5) CAD (coronary artery disease) Status: Chronic (6) COPD (chronic obstructive pulmonary disease) Status: Chronic (7) HHD (hypertensive heart disease) Status: Chronic (8) PAD (peripheral artery disease) Status: Chronic (9) Renal insufficiency Status: Chronic (10) Atrial flutter Status: Acute Assessment and Plan for All Diagnoses:: 1. 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 Continue aspirin and Brilinta (rectally if needed). On esmolol gtt HR 110-120's bpm. 2. Respiratory Failure, extubated yesterday. Tolerating nasal cannula oxygen without need for BiPAP therapy. 3. Possible right pneumonia, finished several days of levaquin. 4. COPD/history of lung cancer with XRT. 5. Chronic anemia (in the range of 11-12) with expected drop secondary to bloody pericardial effusion. Patient did receive blood transfusion and FFP during the cardiac cath/initial code. Hemoglobin 10.2 yesterday. 6. Chronic renal insufficiency, stage II, stable with creatinine 1.2 and GFR 58. Known right renal artery stenosis. 7. A. flutter with RVR over the weekend, s/p amio gtt now on oral amiodarone. Maintaining sinus rhythm. May need to restart IV amiodarone for HR control. 8. Ileus, improving 9. Pericardial effusion status post pericardiocentesis, drain was successfully removed. 10. Left Pneumothorax during pericardiocentesis attempt, treated successfully with chest tube, now removed. 11. History of AAA status post endograft placement Patient is DNR with only medical code in place. Discussed with family to see if they can get him to sit up and eat. We will back off on
--- NOTE | 2021-06-28 09:47 | HMH.ACPN2 ---
Internal Medicine - PN: Subj *Date: 06/28/21 *Time: 12:19 Interval history: 81-year-old male patient sitting in bed in no apparent distress, current oxygenation 100% on 4 L per nasal cannula. Granddaughter is in room, patient does not respond to verbal or tactile stimuli. Exam Vital signs and Labs for Last 24 Hours: Temp Pulse Resp BP Pulse Ox 98.1 F 77 32 H 104/60 L 100 06/28/21 04:00 06/28/21 06:18 06/28/21 06:00 06/28/21 06:00 06/28/21 06:18 Laboratory Results - last 24 hr 06/28/21 05:27: Sodium 134 L, Potassium 4.3, Chloride 112 H, Carbon Dioxide 17 L, Anion Gap 9.3, BUN 37 H, Creatinine 1.20, Estimated Creat Clear 58, Estimated GFR 58 L, Est GFR ( Amer) 70, Glucose 91, Calcium 6.9 L, Total Bilirubin 1.4 H, AST 65 H D, ALT 107 H D, Alkaline Phosphatase 138 H, Total Protein 4.4 L, Albumin 2.1 L, Globulin 2.3, Albumin/Globulin Ratio 0.9 L I & O for Last 24 hours: Intake & Output 06/25/21 06/26/21 06/27/21 06/28/21 23:59 23:59 23:59 23:59 Intake Total 6250.875 / 6250.875 6498.383 / 6498.383 2578.600 / 2578.600 2319.925 / 2319.925 Output Total 1765 / 1930 1602 / 1602 3285 / 3535 2300 / 2300 Balance 4485.875 / 4320.875 4896.383 / 4896.383 -706.400 / -956.400 19.925 / 19.925 Weight 170 lb 6.4 oz 170 lb 6 oz 187 lb 2.759 oz 193 lb 4.8 oz - Constitutional no acute distress - *Routine Respiratory Exam Present: CTA bilaterally. Absent: accessory muscle use - *Routine Cardiovascular Exam Present: tachycardia - *Routine Abdominal Exam Present: soft, normoactive bowel sounds. Absent: firm - *Routine Extremities Exam Present: pulses intact. Absent: cyanosis, clubbing - *Routine Skin Exam Present: dry. Absent: cyanosis, erythema - *Routine Neurological Exam Present: altered mental status - Routine Psychiatric Exam Present: unable to assess Assessment and Plan (1) Pneumothorax, left Status: Acute Category: Medical Code(s): J93.9 - Pneumothorax, unspecified (2) Emphysema lung Status: Acute Category: Medical Code(s): J43.9 - Emphysema, unspecified (3) Essential hypertension Status: Acute Category: Medical Code(s): I10 - Essential (primary) hypertension (4) Neoplasm of lung Status: Acute Category: Medical Code(s): D49.1 - Neoplasm of unspecified behavior of respiratory system (5) CAD (coronary artery disease) Status: Chronic Qualifiers: Coronary Disease-Associated Artery/Lesion type: [place] artery [place] vs. transplanted heart: [place] heart Associated angina: without angina Qualified Code(s): I25.10 - Atherosclerotic heart disease of [place] coronary artery without angina pectoris Category: Medical Code(s): I25.10 - Atherosclerotic heart disease of [place] coronary artery without angina pectoris (6) COPD (chronic obstructive pulmonary disease) Status: Chronic Qualifiers: COPD type: unspecified COPD Qualified Code(s): J44.9 - Chronic obstructive pulmonary disease, unspecified Category: Medical Code(s): J44.9 - Chronic obstructive pulmonary disease, unspecified (7) HHD (hypertensive heart disease) Status: Chronic Qualifiers: Heart failure presence: unspecified whether heart failure present Qualified Code(s): I11.9 - Hypertensive heart disease without heart failure Category: Medical Code(s): I11.9 - Hypertensive heart disease without heart failure (8) PAD (peripheral artery disease) Status: Chronic Category: Medical Code(s): I73.9 - Peripheral vascular disease, unspecified (9) Renal insufficiency Status: Chronic Category: Medical Code(s): N28.9 - Disorder of kidney and ureter, unspecified (10) Atrial flutter Status: Acute Category: Medical Code(s): I48.92 - Unspecified atrial flutter - Assessment and plan all Dx Assessment and Plan for all problems:: Rounded with Dr. Hudson, all orders per Dr. Hudson: 1. Continue current medical regimen 2. Wean O2 as tolerated 3. Cardi
[2021-06-28 10:28] LABS: Hematocrit 26.1 % (42.0-52.0); Hemoglobin 8.5 g/dL (14.1-18.0); Mean Corpuscular HGB Conc 32.6 g/dL (31.8-35.4); Mean Corpuscular Hemoglobin 29.4 pg (27.0-31.2); Mean Corpuscular Volume 90.3 fl (80-94); Platelet Count 233 K/mm3 (142-424); Red Blood Count 2.89 M/mm3 (4.60-6.20); Red Cell Distribution Width 20.3 % (11.5-17.5); White Blood Count 11.4 K/mm3 (4.8-10.8)
[2021-06-28 10:29] LABS: Mean Platelet Volume 10.4 fl (7.4-10.4)
--- NOTE | 2021-06-28 12:38 | DIET.NUTRFU ---
Patient extubated, prognosis still very poor. He is not alert enough for oral diet at this time. Family is all at bedside. Multiple meds provided in dextrose or NaCl to help meet hydration needs. Labs reviewed: Na 134L (131), BUN 37 (35). Liver enzymes improving yet still elevated at 65H, 107H. Will continue to follow to determine what is medically feasible. Family has changed him to DNR and they told nursing they do not want him intubated again.
[2021-06-28 13:25] LABS: Basophils % 0.2 % (0.1-2.0); Eosinophils # 0.1 K/mm3 (0.0-0.4); Eosinophils % 0.7 % (0.1-12.0); Lymphocytes # 1.2 K/mm3 (0.7-4.5); Lymphocytes % 10.9 % (10-50); Monocytes % 8.6 % (1.7-9.3); Neutrophils # 8.6 K/mm3 (1.8-7.8); Neutrophils % 76.1 % (37.0-80.0)
[2021-06-28 13:58] LABS: POC Glucose,Bedside 99 (70-110)
--- NOTE | 2021-06-28 14:15 | HMH.PULMPN ---
Internal Medicine - PN: Subj *Date: 06/28/21 *Time: 14:15 Interval history: Patient have experienced cardiopulmonary arrest in the last week needing reintubation and has been successfully extubated. Exam - Constitutional Constitutional:: Absent: no acute distress, comfortable - HENMT Exam HENMT: Present: normocephalic - Eye Exam Eyes:: Present: normal appearance both eyes and related structures - Neck Exam Neck:: Present: normal visual inspection - Respiratory Exam Respiratory:: Present: respiratory distress, crackles, rhonchi - Cardiovascular Exam Cardiac:: Present: S1, S2 - GI Exam GI:: Present: soft - Skin Exam Skin: Present: warm - Neurological Exam Neurological: Present: awake. Absent: alert, normal cognition - Extremities Exam Extremities: Present: no cyanosis, no clubbing, edema Assessment and Plan (1) Pneumothorax, left Status: Acute Category: Medical Code(s): J93.9 - Pneumothorax, unspecified (2) Emphysema lung Status: Acute Category: Medical Code(s): J43.9 - Emphysema, unspecified (3) Essential hypertension Status: Acute Category: Medical Code(s): I10 - Essential (primary) hypertension (4) Neoplasm of lung Status: Acute Category: Medical Code(s): D49.1 - Neoplasm of unspecified behavior of respiratory system (5) CAD (coronary artery disease) Status: Chronic Qualifiers: Coronary Disease-Associated Artery/Lesion type: [place] artery [place] vs. transplanted heart: [place] heart Associated angina: without angina Qualified Code(s): I25.10 - Atherosclerotic heart disease of [place] coronary artery without angina pectoris Category: Medical Code(s): I25.10 - Atherosclerotic heart disease of [place] coronary artery without angina pectoris (6) COPD (chronic obstructive pulmonary disease) Status: Chronic Qualifiers: COPD type: unspecified COPD Qualified Code(s): J44.9 - Chronic obstructive pulmonary disease, unspecified Category: Medical Code(s): J44.9 - Chronic obstructive pulmonary disease, unspecified (7) HHD (hypertensive heart disease) Status: Chronic Qualifiers: Heart failure presence: unspecified whether heart failure present Qualified Code(s): I11.9 - Hypertensive heart disease without heart failure Category: Medical Code(s): I11.9 - Hypertensive heart disease without heart failure (8) PAD (peripheral artery disease) Status: Chronic Category: Medical Code(s): I73.9 - Peripheral vascular disease, unspecified (9) Renal insufficiency Status: Chronic Category: Medical Code(s): N28.9 - Disorder of kidney and ureter, unspecified (10) Atrial flutter Status: Acute Category: Medical Code(s): I48.92 - Unspecified atrial flutter - Assessment and plan all Dx Assessment and Plan for all problems:: #Acute hypoxic respiratory failure: # CAP: Mr. matos is a 81 Y/O greater than [id number] smoking history carries a diagnosis COPD, stage I lung cancer left upper lobe [place] status post radiation completion currently under surveillance with most recent CT reported to have improving size of the nodule. Presented for an outpatient left heart cath catheterization needing mechanical ventilator support and pulmonary was called for ventilator management. Patient has been on minimal ventilator settings since intubation. His clinical status gradually improved, her perform SBT successful yesterday and was extubated on 06/21/2021. On subsequent CXR, the noted opacity in the right lower lobe improving. For the last week patient hospital course was complicated by cardiopulmonary arrest needing intubation and he was successfully extubated. This morning patient appears somnolent ,not following commands. Auscultation rhonchorous with no wheezing. Saturating 100% on 4 L nasal cannula. He completed his antibiotic course for his pneumonia. Plan: -Continue oxygen therapy to maintain O2 saturation goal of 92% and above.
--- NOTE | 2021-06-28 16:59 | PC.NURSE ---
Pt will open his eyes to tactile stimulation, unable to follow commands. Oxygen has been weaned to 2L NC w/O2 saturations measuring > 94%. He's been NST/ST on telemetry w/occasional PVC's. [place] gtt off @1245. Systolic has been > 90 and MAP > 65 since. HR has been in the 80's since amio bolus completed. Amio maintenance rate currently at 33mls/hr per order. Esmolol gtt @ 200mcg/kg/min (92.4 mls/hr). +2/+3 generalized edema. BUE weeping. Blisters noted to LUE. Extensive scattered bruising to body. His chalwa is to bedside draining tea colored urine. Sediment noted. Approx 700 mls of urine out thus far. Pt turned and oral care provided q2hrs. Morphine administered x1 for pt grimacing and moaning, he has rested quietly since. Robinul administered x2 for secretions. Glucose was 99 and 118 at checks. Family has been at bedside and is supportive.
[2021-06-28 18:05] LABS: POC Glucose,Bedside 118 (70-110)
[2021-06-28 20:46] LABS: POC Glucose,Bedside 141 (70-110)
[2021-06-29] VITALS (12 sets, daily range): BP systolic 77–116; BP diastolic 41–71; PULSE 65–76; RESP 28–46; TEMP 36.1–36.8; O2SAT 90–100; BMI 26.1
--- NOTE | 2021-06-29 07:00 | XR_ITS ---
PROCEDURE INFORMATION: Exam: XR Chest Exam date and time: 06/29/2021 4:42 AM Age: 81 years old Clinical indication: Other: Airspace congestion TECHNIQUE: Imaging protocol: XR of the chest. Views: 1 view. COMPARISON: CR XR CHEST PORTABLE 06/27/2021 4:26 AM FINDINGS: Lungs: Some patchy airspace disease is noted on the left not significantly changed from prior. Right-sided is somewhat improved. Pleural spaces: Unremarkable. No pleural effusion. No pneumothorax. Heart/Mediastinum: Unremarkable. No cardiomegaly. Bones/joints: Unremarkable. IMPRESSION: Stable left airspace changes. Improved right aeration.
--- NOTE | 2021-06-29 08:55 | HMH.ACPN2 ---
Internal Medicine - PN: Subj *Date: 06/29/21 *Time: 08:40 Interval history: family at bedside Exam Vital signs and Labs for Last 24 Hours: Temp Pulse Resp BP Pulse Ox 97.0 F L 65 39 H 92/48 L 96 06/29/21 08:00 06/29/21 08:00 06/29/21 08:00 06/29/21 08:00 06/29/21 08:00 Laboratory Results - last 24 hr 06/28/21 05:27: WBC 11.4 H D, RBC 2.89 L, Hgb 8.5 L D, Hct 26.1 L, MCV 90.3, MCH 29.4, MCHC 32.6, RDW 20.3 H, Plt Count 233, MPV 10.4, Neut % (Auto) 76.1, Lymph % (Auto) 10.9, [place] % (Auto) 8.6, Eos % (Auto) 0.7, Baso % (Auto) 0.2, Neut # (Auto) 8.6 H, Lymph # (Auto) 1.2, [place] # (Auto) 1.0, Eos # (Auto) 0.1, Baso # (Auto) 0.0 06/28/21 13:02: POC Glucose 99 06/28/21 17:39: POC Glucose 118 H 06/28/21 20:37: POC Glucose 141 H I & O for Last 24 hours: Intake & Output 06/26/21 06/27/21 06/28/21 06/29/21 11:59 11:59 11:59 11:59 Intake Total 8812.250 / 8835.250 5431.383 / 5431.383 2805.850 / 2805.850 3035.8 / 3035.8 Output Total 1450 / 1450 1877 / 2227 4650 / 4650 1425 / 1425 Balance 7362.250 / 7385.250 3554.383 / 3204.383 -1844.150 / -4625.180 3794.8 / 1610.8 Weight 170 lb 6 oz 187 lb 2.759 oz 193 lb 4.8 oz 193 lb - Constitutional no acute distress - *Routine HEENT Exam Head: Present: normocephalic Eye: Present: PERRL ENT: Present: mucous membranes moist - *Routine Neck Exam Present: supple. Absent: lymphadenopathy - *Routine Respiratory Exam Present: CTA bilaterally - *Routine Cardiovascular Exam Present: RRR - *Routine Abdominal Exam Present: soft, normoactive bowel sounds. Absent: tenderness - *Routine Extremities Exam Absent: cyanosis, clubbing, edema - *Routine Skin Exam Present: warm. Absent: rash - *Routine Neurological Exam no response to stimuli Assessment and Plan (1) Pneumothorax, left Status: Acute Category: Medical Code(s): J93.9 - Pneumothorax, unspecified (2) Emphysema lung Status: Acute Category: Medical Code(s): J43.9 - Emphysema, unspecified (3) Essential hypertension Status: Acute Category: Medical Code(s): I10 - Essential (primary) hypertension (4) Neoplasm of lung Status: Acute Category: Medical Code(s): D49.1 - Neoplasm of unspecified behavior of respiratory system (5) CAD (coronary artery disease) Status: Chronic Qualifiers: Coronary Disease-Associated Artery/Lesion type: [place] artery [place] vs. transplanted heart: [place] heart Associated angina: without angina Qualified Code(s): I25.10 - Atherosclerotic heart disease of [place] coronary artery without angina pectoris Category: Medical Code(s): I25.10 - Atherosclerotic heart disease of [place] coronary artery without angina pectoris (6) COPD (chronic obstructive pulmonary disease) Status: Chronic Qualifiers: COPD type: unspecified COPD Qualified Code(s): J44.9 - Chronic obstructive pulmonary disease, unspecified Category: Medical Code(s): J44.9 - Chronic obstructive pulmonary disease, unspecified (7) HHD (hypertensive heart disease) Status: Chronic Qualifiers: Heart failure presence: unspecified whether heart failure present Qualified Code(s): I11.9 - Hypertensive heart disease without heart failure Category: Medical Code(s): I11.9 - Hypertensive heart disease without heart failure (8) PAD (peripheral artery disease) Status: Chronic Category: Medical Code(s): I73.9 - Peripheral vascular disease, unspecified (9) Renal insufficiency Status: Chronic Category: Medical Code(s): N28.9 - Disorder of kidney and ureter, unspecified (10) Atrial flutter Status: Acute Category: Medical Code(s): I48.92 - Unspecified atrial flutter - Assessment and plan all Dx Assessment and Plan for all problems:: rounded with dr barfield all orders per dr barksdale cardiology to follow pulm to follow comfort care per family
--- NOTE | 2021-06-29 09:11 | HMH.PULMPN ---
Internal Medicine - PN: Subj *Date: 06/29/21 *Time: 13:12 Interval history: No acute respiratory events overnight. Exam - Constitutional Constitutional:: Absent: no acute distress, comfortable - HENMT Exam HENMT: Present: normocephalic - Eye Exam Eyes:: Present: normal appearance both eyes and related structures - Neck Exam Neck:: Present: normal visual inspection - Respiratory Exam Respiratory:: Present: respiratory distress, crackles. Absent: wheezing - Cardiovascular Exam Cardiac:: Present: S1, S2 - GI Exam GI:: Present: soft - Neurological Exam Neurological: Absent: alert, awake, normal cognition - Extremities Exam Extremities: Present: no cyanosis, no clubbing, edema Assessment and Plan (1) Pneumothorax, left Status: Acute Category: Medical Code(s): J93.9 - Pneumothorax, unspecified (2) Emphysema lung Status: Acute Category: Medical Code(s): J43.9 - Emphysema, unspecified (3) Essential hypertension Status: Acute Category: Medical Code(s): I10 - Essential (primary) hypertension (4) Neoplasm of lung Status: Acute Category: Medical Code(s): D49.1 - Neoplasm of unspecified behavior of respiratory system (5) CAD (coronary artery disease) Status: Chronic Qualifiers: Coronary Disease-Associated Artery/Lesion type: [place] artery [place] vs. transplanted heart: [place] heart Associated angina: without angina Qualified Code(s): I25.10 - Atherosclerotic heart disease of [place] coronary artery without angina pectoris Category: Medical Code(s): I25.10 - Atherosclerotic heart disease of [place] coronary artery without angina pectoris (6) COPD (chronic obstructive pulmonary disease) Status: Chronic Qualifiers: COPD type: unspecified COPD Qualified Code(s): J44.9 - Chronic obstructive pulmonary disease, unspecified Category: Medical Code(s): J44.9 - Chronic obstructive pulmonary disease, unspecified (7) HHD (hypertensive heart disease) Status: Chronic Qualifiers: Heart failure presence: unspecified whether heart failure present Qualified Code(s): I11.9 - Hypertensive heart disease without heart failure Category: Medical Code(s): I11.9 - Hypertensive heart disease without heart failure (8) PAD (peripheral artery disease) Status: Chronic Category: Medical Code(s): I73.9 - Peripheral vascular disease, unspecified (9) Renal insufficiency Status: Chronic Category: Medical Code(s): N28.9 - Disorder of kidney and ureter, unspecified (10) Atrial flutter Status: Acute Category: Medical Code(s): I48.92 - Unspecified atrial flutter - Assessment and plan all Dx Assessment and Plan for all problems:: #Acute hypoxic respiratory failure: # CAP: Mr. matos is a 81 Y/O greater than [id number] smoking history carries a diagnosis COPD, stage I lung cancer left upper lobe [place] Ca status post radiation completion currently under surveillance with most recent CT reported to have improving size of the nodule. Presented for an outpatient left heart cath catheterization needing mechanical ventilator support and pulmonary was called for ventilator management. Patient has been on minimal ventilator settings since intubation. His clinical status gradually improved, her perform SBT successful yesterday and was extubated on 06/21/2021. On subsequent CXR, the noted opacity in the right lower lobe improving. Last week patient hospital course was complicated by cardiopulmonary arrest needing intubation and he was successfully extubated. Interval update: Patient more somnolent than yesterday, unable to awake. Oxygen recommends improving, weaned to 2 L nasal cannula. Chest exam this morning no acute pulmonary infiltrates, stable except for worsening bilateral pleural effusions left greater than right. Plan: -Continue oxygen therapy to maintain O2 saturation goal of 92% and above. Will wean as tolerated. Weaned to 1 L this morning as pa
--- NOTE | 2021-06-29 10:30 | HMH.PNCARD ---
Subjective Date: 06/29/21 Time: 10:30 Principal diagnosis: Coronary dissection, left pneumothorax Interval history: 81-year-old white male in bed. Continues to be unresponsive. Shallow breathing noted. Telemetry shows sinus rhythm with rate in the 60s and 70s. He is on IV amiodarone and esmolol. Daughter relates patient never really woke up last evening to converse or attempt eating or drinking. Exam Vital signs and Labs for Last 24 Hours: Temp Pulse Resp BP Pulse Ox 97.0 F L 65 39 H 92/48 L 96 06/29/21 08:00 06/29/21 08:00 06/29/21 08:00 06/29/21 08:00 06/29/21 08:00 Laboratory Results - last 24 hr 06/28/21 05:27: Neut % (Auto) 76.1, Lymph % (Auto) 10.9, [place] % (Auto) 8.6, Eos % (Auto) 0.7, Baso % (Auto) 0.2, Neut # (Auto) 8.6 H, Lymph # (Auto) 1.2, [place] # (Auto) 1.0, Eos # (Auto) 0.1, Baso # (Auto) 0.0 06/28/21 13:02: POC Glucose 99 06/28/21 17:39: POC Glucose 118 H 06/28/21 20:37: POC Glucose 141 H I & O for Last 24 hours: Intake & Output 06/26/21 06/27/21 06/28/21 06/29/21 11:59 11:59 11:59 11:59 Intake Total 8812.250 / 8835.250 5431.383 / 5431.383 2805.850 / 2805.850 3035.8 / 3035.8 Output Total 1450 / 1450 1877 / 2227 4650 / 4650 1465 / 1465 Balance 7362.250 / 7385.250 3554.383 / 3204.383 -1844.150 / -4013.021 3427.8 / 1570.8 Weight 170 lb 6 oz 187 lb 2.759 oz 193 lb 4.8 oz 193 lb - Constitutional somnolent - *Routine Respiratory Exam Present: rhonchi - *Routine Cardiovascular Exam Present: RRR Progress Note: A&P (1) Pneumothorax, left Status: Acute (2) Emphysema lung Status: Acute (3) Essential hypertension Status: Acute (4) Neoplasm of lung Status: Acute (5) CAD (coronary artery disease) Status: Chronic (6) COPD (chronic obstructive pulmonary disease) Status: Chronic (7) HHD (hypertensive heart disease) Status: Chronic (8) PAD (peripheral artery disease) Status: Chronic (9) Renal insufficiency Status: Chronic (10) Atrial flutter Status: Acute Assessment and Plan for All Diagnoses:: 1. 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 Continue aspirin and Brilinta (rectally if needed). On esmolol gtt and IV amiodarone to maintain sinus with controlled rate. 2. Respiratory Failure, extubated x48 hours and tolerating nasal cannula oxygen without need for BiPAP therapy. 3. Possible right pneumonia, finished several days of levaquin. Chest x-ray this a.m. shows improvement in right lung. Left-sided congestion stable. 4. COPD/history of lung cancer with XRT. 5. Chronic anemia (in the range of 11-12) with expected drop secondary to bloody pericardial effusion. Patient did receive blood transfusion and FFP during the cardiac cath/initial code. Hemoglobin 8.5 yesterday. 6. Chronic renal insufficiency, stage II, stable with creatinine 1.2 and GFR 58. Known right renal artery stenosis. 7. Paroxysmal A. fib/flutter, now in sinus rhythm on IV amiodarone and esmolol drip. 8. Ileus, improving 9. Pericardial effusion status post pericardiocentesis, drain was successfully removed. 10. Left Pneumothorax during pericardiocentesis attempt, treated successfully with chest tube, now removed. 11. History of AAA status post endograft placement Patient is DNR with family now deciding for comfort measures. Will discontinue amiodarone, esmolol and turn off all monitors. We will start Ativan therapy for comfort. Patient's life expectancy is less than 24 hours and family is aware of this.
--- NOTE | 2021-06-29 10:34 | DIET.NUTRFU ---
Prognosis continues to be poor, not medically feasible for any oral intake at this time. Continues to be NPO. Dr. Murillo reviewed with family the patient is not expected to improve and hard discussions need to be made.
--- NOTE | 2021-06-29 13:40 | PC.NURSE ---
Dr. Day @ [facility] speaking to family. Family has made the decision for comfort care only. Monitor in the room turned off at this time. Dr. Day ordered Ativan 1mg Q2 prn for terminal agitation/restlessness. Family @ [facility] and coping appropriately.
--- NOTE | 2021-06-29 15:30 | PC.NURSE ---
Addendum entered by Maryjane Humphrey RN 06/29/21 17:19: [facility] home arrival Addendum entered by Maryjane Humphrey RN 06/29/21 16:38: [facility] home notified Addendum entered by Maryjane Humphrey RN 06/29/21 16:29: [facility] . Spoke to Rosalinda Arias Original Note: pt's heart rate sustaining 60-70s on tele all afternoon. At 1527, pt's heart decreased to 40s. Pt sustained agonal rhythm until 1537 then went into asystole. Respirations ceased at 1540. Family @ [facility] and coping appropriately. Dr. Harrell pronounced TOD @ 1600. Family wish for [facility] to remove body. Family left [facility] @ 1615 and asked that [facility] contact them. The following physicians notified: Almas Fuller APRN, Dr. Day, and Dr. Laguna. Attempted to notify PCP (Dr. Manning) but his office is closed at this time. [facility] notified @ 1622 and has been ruled out for donation.
--- NOTE | 2021-08-13 19:42 | HMH.DCSUM ---
General - General Admission date:: 06/19/21 HPI HPI: Patient is an 81-year-old white male who was admitted to our service following a procedure in the [employer] earlier today. Cardiology notes are reviewed. Patient became hypotensive and hypoxic, and required intubation. Pericardiocentesis was performed emergently. Pt noted to have a left sided pneumothorax, requiring chest tube. He was transfused prbc's and one unit of FFP. Pulmonary service called for vent mgt Co-morbid ca lung noted, s/p xrt. Repeat echo performed this afternoon. Hospital Course Hospital Course: We admitted patient to our service following a procedure in the [employer] per Dr. Day. Patient had intraoperative complications and had a complex postoperative course. He lost ground on major fronts and remained unstable. The patient on June 29, 2021. He had been followed by the pulmonology and cardiology services with us. Objective Vital signs: Temp Pulse Resp BP Pulse Ox 97.6 F 71 46 H 113/58 L 90 L 06/29/21 12:00 06/29/21 14:00 06/29/21 14:00 06/29/21 14:00 06/29/21 14:00 chronically ill appearing - *Routine HEENT Exam Head: Present: other Eye: Present: other ENT: Present: other - *Routine Neck Exam Present: supple - *Routine Respiratory Exam Present: other - *Routine Cardiovascular Exam Present: irregular rhythm - *Routine Abdominal Exam Present: other - *Routine Extremities Exam Absent: calf tenderness - *Routine Skin Exam Absent: jaundice DS: Diagnosis - Discharge Diagnosis (1) Pneumothorax, left Status: Acute (2) Emphysema lung Status: Acute (3) Essential hypertension Status: Acute (4) Neoplasm of lung Status: Acute (5) CAD (coronary artery disease) Status: Chronic (6) COPD (chronic obstructive pulmonary disease) Status: Chronic (7) HHD (hypertensive heart disease) Status: Chronic (8) PAD (peripheral artery disease) Status: Chronic (9) Renal insufficiency Status: Chronic (10) Atrial flutter Status: Acute Discharge Plan - Patient Discharge Instructions ACTIVITY: Other DIET: other Patient Instructions: Intubation and Mechanical Ventilation, Cardiac Arrest, Arterial Blood Gases, Cardiac Catheterization, Hypothermia, DI for Pneumothorax, DI for Ileus, Central Line-Associated Bloodstream Infections, Surgical Site Infection, Ventilator-Associated Pneumonia, DI for Hypotension, Catheter-associated Urinary Tract Infection - Follow up Plan Follow up with: Tj Day MD [Staff Physician] - 1 week Condition at discharge:: Deteriorating Home Medications: Home Medications Medication Instructions Recorded Confirmed Type aspirin 81 mg tablet,delayed 81 mg PO DAILY tab 05/15/17 06/19/21 History release cyclobenzaprine 10 mg tablet 10 mg PO HSP PRN #30 tab 08/16/19 06/19/21 Rx albuterol sulfate 90 mcg/actuation 2 inh INHALATION Q4HP PRN #6.7 g 03/15/20 06/19/21 Rx aerosol inhaler ipratropium 0.5 mg-albuterol 3 mg 3 ml INHALATION Q6H PRN #180 ml 03/21/20 06/19/21 Rx (2.5 mg base)/3 mL nebulization soln Hydrocod/Acet 5/325 mg [[place] 1 tab PO Q6HP PRN 12/10/20 06/19/21 History 5/325mg tablet] furosemide 20 mg tablet 20 mg PO DAILY #90 tab 01/29/21 06/19/21 Rx omeprazole 20 mg capsule,delayed 40 mg PO DAILY cap 04/30/21 06/19/21 History release Amlodipine Besylate [Norvasc 10mg 10 mg PO DAILY 06/04/21 06/19/21 History tablet] ticagrelor 90 mg tablet 90 mg PO BID tab 06/14/21 06/19/21 History Atorvastatin Calcium [Lipitor 40mg 40 mg PO DAILY 06/19/21 06/19/21 History Tab] Metoprolol Tartrate [Lopressor 100 100 mg PO BID 06/19/21 06/19/21 History mg Tablets] Prescriptions/Medication Reconciliation: No Action aspirin 81 mg tablet,delayed release 81 mg PO DAILY tab cyclobenzaprine 10 mg tablet 10 mg PO HSP PRN #30 tab PRN Reason: MUSCLE RELAXER albuterol sulfat
== END 2021-06-29 17:20 | disposition expired | DRG 981 ==
LOC: 2ND 12:19
PROVIDERS: Family Medicine; Internal Medicine; Internal Medicine Adolescent Medicine; Internal Medicine Pulmonary Disease; Nurse Practitioner Family; Admitting Provider Emergency Medicine; PCP Family Medicine; Visit Provider Emergency Medicine
PROC: 0W9B30Z Drainage of Left Pleural Cavity with Drainage Device, Percutaneous Approach (ICD-10-PCS; principal; 2021-06-19 07:45)
DX: I97.51 Accidental puncture and laceration of a circulatory system organ or structure during a circulatory system procedure; T81.19XA Other postprocedural shock, initial encounter; J96.01 Acute respiratory failure with hypoxia; J18.9 Pneumonia, unspecified organism; I31.4 Cardiac tamponade; I31.3 Pericardial effusion (noninflammatory); S27.0XXA Traumatic pneumothorax, initial encounter; C34.92 Malignant neoplasm of unspecified part of left bronchus or lung; N17.9 Acute kidney failure, unspecified; K56.7 Ileus, unspecified; I48.92 Unspecified atrial flutter; I25.10 Atherosclerotic heart disease of native coronary artery without angina pectoris; Y65.8 Other specified misadventures during surgical and medical care; Y92.234 Operating room of hospital as the place of occurrence of the external cause; E78.2 Mixed hyperlipidemia; Z66 Do not resuscitate; I70.1 Atherosclerosis of renal artery; I71.4 Abdominal aortic aneurysm, without rupture; N28.9 Disorder of kidney and ureter, unspecified; Z95.5 Presence of coronary angioplasty implant and graft; E78.5 Hyperlipidemia, unspecified; Z87.891 Personal history of nicotine dependence; E11.51 Type 2 diabetes mellitus with diabetic peripheral angiopathy without gangrene; J43.9 Emphysema, unspecified; E11.22 Type 2 diabetes mellitus with diabetic chronic kidney disease; D63.1 Anemia in chronic kidney disease; N18.2 Chronic kidney disease, stage 2 (mild); I48.0 Paroxysmal atrial fibrillation
CPT/HCPCS: 31500; 94002; 33017; 36415; 71045; 74018; 80048; 80053; 81001; 82803; 82962; 83605; 84484; 85007; 85025; 86850; 87040; 87070; 87081; 87205; 92928; 93005; 93308; 93458; 94003; 94640; 94761; 99152; 99153; C1725; C1760; C1769; C1874; C1876; C1894; C9600; C9803; J0282; J1644; J1956; J2704; J2720; J7060; P9016; P9017; Q9967; U0003; U0005